=== PATIENT | male | born 1955 | race Hispanic/Latino ===

== ENCOUNTER 2018-04-06 10:11 | Inpatient (IN) | payer OTHER ==
--- NOTE | 2018-04-06 10:45 | RAD REPORT ---
EXAM DESCRIPTION: CT - Head Brain Wo Cont - 04/06/2018 10:38 am CLINICAL HISTORY: MENTAL STATUS CHANGE Drowsiness COMPARISON: HEAD BRAIN W O CONTRAST dated 09/27/2012 TECHNIQUE: All CT scans are performed using dose optimization technique as appropriate and may inclu de automated exposure control or mA/KV adjustment according to patient size. FINDINGS: No intracranial hemorrhage, hydrocephalus or extra-axial fluid collection.No areas of brai n edema or evidence of midline shift. Mild multifocal paranasal sinus thickening is seen. The calvarium is intact. IMPRESSION: No acute intracranial abnormality.
[2018-04-06] MEDS ORDERED: NA CHLORIDE 0.9% 1,000 ML ONE ×4 (11:08→16:16)
[2018-04-06 11:12] LABS: Absolute Lymphocytes (CBC) 0.4 K/uL (0.7-4.9); Absolute Monocytes 0.9 K/uL (0.1-1.3); Absolute Neutrophil 25.4 K/uL (1.8-8.0); Basophils % 0.1 % (0-1.3); Eosinophils % 0.4 % (0-4.4); Hematocrit 33.4 % (39.6-49.0); Lymphocytes % 1.6 % (15.3-44.8); MPV 8.3 fL (7.6-11.3); Monocytes % 3.5 % (3.3-12.3); RBC Red Blood Cell Count 3.71 M/uL (4.33-5.43)
[2018-04-06 11:18] LABS: Protime INR 1.3
--- NOTE | 2018-04-06 11:18 | RAD REPORT ---
EXAM DESCRIPTION: RAD - Chest Single View - 04/06/2018 10:53 am CLINICAL HISTORY: confusion Chest pain. COMPARISON: Chest Pa And Lat (2 Views) dated 07/07/2015; CHEST SINGLE VIEW dated 09/27/2012; CHEST SING LE VIEW dated 09/12/2011; ABDOMEN ACUTE SERIES dated 09/13/2009 FINDINGS: Portable technique limits examination quality. Extensive bilateral pulmonary opacities are noted likely representing multifocal pneumonia. The heart is normal in size. No displaced fractures. IMPRESSION: Extensive multifocal pneumonia likely present.
[2018-04-06 11:40] LABS: Blood Morphology Comment NOT SEEN (NOT SEEN); Platelet Estimate ADEQ
[2018-04-06 11:42] LABS: ALT/SGPT 44 U/L (12-78); AST/SGOT 114 U/L (15-37); Albumin 2.7 g/dL (3.4-5.0); Alkaline Phosphatase 124 U/L (45-117); BUN Blood Urea Nitrogen 81 mg/dL (7-18); Bicarbonate 17 mmol/L (21-32); Bilirubin Direct 0.4 mg/dL (0-0.2); Bilirubin Total 0.7 mg/dL (0.2-1.0); CKMB Creatine Kinase MB 35.2 ng/mL (0.3-3.6); Creatine Phosphokinase 3358 U/L (39-308); Glucose Level 67 mg/dL (74-106); Magnesium 2.8 mg/dL (1.8-2.4); NT PRO-BNP 7609 pg/mL (<125); Protein, Total 7.5 g/dL (6.4-8.2); Sodium Level 132 mmol/L (136-145); Troponin (Emerg Dept Use Only) < 0.02 ng/mL (0.0-0.045)
[2018-04-06 12:08] LABS: Arterial Blood Carboxyhemoglob 0.4 % (0-1.5); Blood Gas Oxyhemoglobin 88.7 % (94-97); Blood O2 Saturation 90.2 % (92-98.5)
--- NOTE | 2018-04-06 12:19 | EDPHYS ---
Physician Documentation [facility] Name: Robby Springer Age: 62 yrs Sex: Male : 1955 Arrival Date: 04/06/2018 Time: 10:[address] Private MD: ED Physician Marlo Srivastava HPI: 04/06 11:04 This 62 yrs old Male presents to ER via EMS with complaints of Altered Mental kb Status. 11:04 The patient presents with disorientation, to place, to time. Onset: The kb symptoms/episode began/occurred at an unknown time. Possible causes: unknown. Current symptoms: In the emergency department the patient's symptoms are unchanged from the initial presentation. Patient's baseline:. Patient's baseline: unknown. Unable to obtain HPI due to altered mental status. It is unknown whether or not the patient has had similar symptoms in the past. EMS reports pt was found outside of an apartment complex this morning. Pt reports he was dropped off by [employer], but PD denies transporting pt. Pt oriented to name, month and day of date only. Believes he is 61 and was born in 1956. Reports he fell a few hours ago and has a headache, no other symptoms or complaints. Pt is cold to touch. . Historical: - Allergies: 10:27 Imuran; em 10:27 Toradol; em - PMHx: 10:27 chron's; Enlarged Heart; GERD; Hypertension; em - Immunization history:: Adult Immunizations unknown. - Social history:: Smoking status: unknown. - Ebola Screening: : No symptoms or risks identified at this time. ROS: 11:11 Constitutional: Negative for fever, chills, and weight loss, Cardiovascular: Negative kb for chest pain, palpitations, and edema, Respiratory: Negative for shortness of breath, cough, wheezing, and pleuritic chest pain, Abdomen/GI: Negative for abdominal pain, nausea, vomiting, diarrhea, and constipation, MS/Extremity: Negative for injury and deformity, Skin: Negative for injury, rash, and discoloration. 11:11 Neuro: Positive for altered mental status, headache. Exam: 11:11 Constitutional: This is a well developed, well nourished patient who is awake, alert, kb and in no acute distress. Head/Face: Normocephalic, atraumatic. Eyes: Pupils equal round and reactive to light, extra-ocular motions intact. Lids and lashes normal. Conjunctiva and sclera are non-icteric and not injected. Cornea within normal limits. Periorbital areas with no swelling, redness, or edema. ENT: Nares patent. No nasal discharge, no septal abnormalities noted. Tympanic membranes are normal and external auditory canals are clear. Oropharynx with no redness, swelling, or masses, exudates, or evidence of obstruction, uvula midline. Mucous membranes moist. Neck: Trachea midline, no thyromegaly or masses palpated, and no cervical lymphadenopathy. Supple, full range of motion without nuchal rigidity, or vertebral point tenderness. No Meningismus. Chest/axilla: Normal chest wall appearance and motion. Nontender with no deformity. No lesions are appreciated. Cardiovascular: Regular rate and rhythm with a normal S1 and S2. No gallops, murmurs, or rubs. Normal PMI, no JVD. No pulse deficits. Abdomen/GI: Soft, non-tender, with normal bowel sounds. No distension or tympany. No guarding or rebound. No evidence of tenderness throughout. Skin: Warm, dry with normal turgor. Normal color with no rashes, no lesions, and no evidence of cellulitis. MS/ Extremity: Pulses equal, no cyanosis. Neurovascular intact. Full, normal range of motion. 11:11 Neuro: Orientation: to person, Not oriented to place, time, situation, Mentation: able to follow commands, Memory: unable to test, Cranial nerves: grossly normal, Cerebellar function: is grossly normal, Motor: is normal, Sensation: no obvious gross deficits, light touch sense is normal, seizure activity, is not displayed by the patient. 11:11 Respiratory: the patient does not display signs of respiratory distress, Respirations: kb normal, Breath sounds: rhonchi, that are mild, are heard in the right middle lobe, right lower lobe, right posterior middle lobe and right posterior lower lobe. Vital Signs: 10:16 BP 99 / 59; Pulse 94; Resp 16; Pulse Ox 97% on R/A; em 10:51 BP 83 / 60; Pulse 114; Resp 20; Temp 87.5(R); em 11:00 Weight 68 kg; em 11:15 BP 81 / 55; Pulse 110; Resp 22; em 11:26 Temp 88.6(C); em 11:30 BP 83 / 55; Pulse 127; Resp 22 S; em 12:01 BP 80 / 47; Pulse 120; Resp 18; Temp 90.3(C); em 12:31 BP 86 / 54; Pulse 133; Resp 19 S; Temp 91.9(C); Pulse Ox 98% on Nebulizer Mask; em 12:42 BP 93 / 64; Pulse 130; Resp 18; Temp 92.2(C); Pulse Ox 98% on 2 lpm NC; Pain 6/10; em 12:52 BP 80 / 51; Pulse 130; Resp 20; Temp 92.6(C); Pulse Ox 98% on 2 lpm NC; em 13:01 BP 76 / 51; Pulse 136; Resp 20; Pulse Ox 97% on 2 lpm NC; em 13:23 BP 66 / 50; Pulse 147; Resp 20; sv 13:45 BP 85 / 64; Pulse 132; Resp 16; Temp 95.2(C); Pulse Ox 97% on 2 lpm NC; ph 14:11 BP 139 / 86; Pulse 137; Resp 16; Pulse Ox 97% on R/A; ph 14:21 BP 59 / 50; Pulse 144; Resp 16; Pulse Ox 96% on 2 lpm NC; ph 14:40 BP 76 / 57; Pulse 145; Resp 22; Temp 95.6(C); Pulse Ox 92% on 2 lpm NC; ph 15:00 BP 87 / 58; Pulse 147; Resp 18; Temp 96.0; Pulse Ox 94% on 4 lpm NC; ph 15:18 BP 96 / 69; Pulse 140; Resp 22; Temp 96.2(C); Pulse Ox 96% on 4 lpm NC; ph 15:31 BP 102 / 63; Pulse 100 MON; Resp 18; Temp 96.3(C); Pulse Ox 95% ; sv 15:45 BP 102 / 63; Pulse 100; Resp 18; Temp 96.3(C); Pulse Ox 95% on 4 lpm NC; ph 16:19 BP 89 / 64; Pulse 104; Resp 22; Temp 96.7(C); Pulse Ox 96% on 4 lpm NC; ph 16:30 BP 84 / 57; Pulse 106; Resp 20; Temp 97.0; Pulse Ox 96% on 4 lpm NC; ph 16:50 BP 84 / 59; Pulse 106; Resp 22; Temp 97.7; Pulse Ox 94% on 4 lpm NC; ph 15:31 Sinus Rhythm sv 10:51 provider notified of VS em NIH Stroke Scale Scores: 10:16 NIHSS Score: 1 em Procedures: 15:32 Cardioversion: (synchronized) for treatment of A fib, with 150 joules X 1. Post gs procedure rhythm is sinus rhythm, the patient tolerated the procedure well. Central Line: the site was prepped with Betadine, in sterile fashion, a triple lumen catheter was inserted, in the right internal jugular vein, in 1 attempts. placement was verified, by CXR, by blood return, the site was dressed with 4X4s, Tegaderm, the patient tolerated the procedure, well. Ultrasound: Type: vascular, performed by the emergency department physician. MDM: 10:14 Patient medically screened. kb 12:15 Data reviewed: vital signs, nurses notes. Data interpreted: Pulse oximetry: on room air kb is 90 %. Interpretation: borderline. Counseling: I had a detailed discussion with the patient and/or guardian regarding: the historical points, exam findings, and any diagnostic results supporting the discharge/admit diagnosis, lab results, radiology results, the need for further work-up and treatment in the hospital. Physician consultation: Wendy Singleton MD was contacted at 12:16, regarding admission, to the ICU, and will see patient in ED, shortly. 04/06 10:16 Order name: Basic Metabolic Panel; Complete Time: 11:51 kb 04/06 10:16 Order name: CBC with Diff; Complete Time: 11:42 kb 04/06 10:16 Order name: LFT's; Complete Time: 11:51 kb 04/06 10:16 Order name: Magnesium; Complete Time: 11:51 kb 04/06 10:16 Order name: NT PRO-BNP; Complete Time: 11:51 kb 04/06 10:16 Order name: PT-INR; Complete Time: 11:21 kb 04/06 10:16 Order name: Troponin (emerg Dept Use Only); Complete Time: 11:51 kb 04/06 10:16 Order name: CPK; Complete Time: 11:51 kb 04/06 10:16 Order name: Ckmb; Complete Time: 11:51 kb 04/06 11:02 Order name: Blood Culture Adult (2) kb 04/06 11:02 Order name: Lactate; Complete Time: 12:11 kb 04/06 11:02 Order name: Procalcitonin; Complete Time: 12:11 kb 04/06 11:17 Order name: Manual Differential; Complete Time: 11:42 EDMS 04/06 11:18 Order name: ABG kb 04/06 11:18 Order name: ABG Arterial Blood Gas; Complete Time: 12:21 EDMS 04/06 12:09 Order name: Urine Microscopic Only; Complete Time: 12:38 dh3 04/06 12:14 Order name: Urine Dipstick--Ancillary (enter results) la1 04/06 13:02 Order name: Urine Drug Screen EDMS 04/06 13:02 Order name: Hepatitis Panel,Acute EDMS 04/06 13:11 Order name: Influenza Screen (A ; Complete Time: 15:51 EDMS 04/06 13:11 Order name: Group A Streptococcus Rapid Sc; Complete Time: 15:51 EDMS 04/06 13:13 Order name: Miscellaneous Micro Reference EDMS 04/06 14:07 Order name: MATTHEW IFA Screen w/Reflex EDMS 04/06 14:07 Order name: Anti-Double Strand DNA Antibod EDMS 04/06 14:07 Order name: Scleroderma Antibody (Scl-70) EDMS 04/06 14:07 Order name: Cardiolipin Antibodies G,M EDMS 04/06 14:07 Order name: Cardiolipin Antibodies A,G,M EDMS 04/06 14:07 Order name: C-ANCA Anti-Proteinase 3 EDMS 04/06 14:07 Order name: Complement C3 EDMS 04/06 14:07 Order name: Complement C4 EDMS 04/06 10:16 Order name: XRAY Chest (1 view); Complete Time: 11:21 kb 04/06 10:16 Order name: CT Head Brain wo Cont; Complete Time: 10:47 kb 04/06 13:02 Order name: Thorax Wo Con EDMS 04/06 13:02 Order name: Echo with Doppler EDMS 04/06 14:07 Order name: Glomerular Basement Membrane EDMS 04/06 14:07 Order name: Hepatitis B Surface Antibody EDMS 04/06 14:07 Order name: Hepatitis B Surface Ab,Quant EDMS 04/06 14:07 Order name: Hep B Surface AG w/ Confirm EDMS 04/06 14:07 Order name: Hepatitis B Core Ab, Total EDMS 04/06 14:07 Order name: Hepatitis C RNA, Quant (PCR) EDMS 04/06 14:07 Order name: HIV (1 EDMS 04/06 14:07 Order name: P-ANCA Anti-Myeloperoxidase Ab EDMS 04/06 14:07 Order name: Ur Protein EDMS 04/06 14:07 Order name: Rheumatoid Factor EDMS 04/06 14:07 Order name: Protein Electo w/M Dangelo Serum EDMS 04/06 14:07 Order name: Transferrin Sat/Iron Binding EDMS 04/06 14:07 Order name: Thyroid Stimulating Hormone EDMS 04/06 14:07 Order name: Uric Acid EDMS 04/06 14:07 Order name: Renal Panel EDMS 04/06 14:07 Order name: Renal Panel EDMS 04/06 14:07 Order name: Renal Panel EDMS 04/06 14:07 Order name: Renal Panel EDMS 04/06 14:07 Order name: Renal Panel EDMS 04/06 14:07 Order name: Renal Panel EDMS 04/06 14:07 Order name: Renal Ultrasound-Complete EDMS 04/06 14:29 Order name: Abdomen EDMS 04/06 14:57 Order name: Chest Single View XRAY; Complete Time: 15:33 kb 04/06 15:59 Order name: CT; Complete Time: 16:02 EDMS 04/06 16:50 Order name: Glucose, Ancillary Testing; Complete Time: 16:52 EDMS 04/06 10:16 Order name: EKG; Complete Time: 10:17 kb 04/06 10:16 Order name: Cardiac monitoring; Complete Time: 11:49 kb 04/06 10:16 Order name: EKG - Nurse/Tech; Complete Time: 11:49 kb 04/06 10:16 Order name: IV Saline Lock; Complete Time: 11:49 kb 04/06 10:16 Order name: Labs collected and sent; Complete Time: 11:49 kb 04/06 10:16 Order name: O2 Per Protocol; Complete Time: 11:49 kb 04/06 10:16 Order name: O2 Sat Monitoring; Complete Time: 11:49 kb 04/06 11:02 Order name: Misc. Order: anushka abraham; Complete Time: 11:49 kb 04/06 11:02 Order name: Urine Dipstick-Ancillary (obtain specimen); Complete Time: 12:08 kb 04/06 11:17 Order name: Jones: continuous temperature monitoring; Complete Time: 11:49 kb 04/06 13:02 Order name: CONS Physician Consult EDKY 04/06 13:02 Order name: CONS Physician Consult EDMS 04/06 13:02 Order name: CONS Physician Consult EDMS 04/06 13:08 Order name: Central Line Kit; Complete Time: 14:01 kb 04/06 15:30 Order name: Misc. Order: cvc good to use; Complete Time: 16:18 gs Administered Medications: 10:55 Drug: NS 0.9% 1000 ml Route: IV; Rate: 1000 ml; Site: left antecubital; em 12:30 Follow up: IV Status: Completed infusion; IV Intake: 1000ml em 10:55 Drug: NS 0.9% (30 ml/kg) 30 ml/kg Route: IV; Rate: bolus; Site: left antecubital; em 12:30 Follow up: IV Status: Completed infusion; IV Intake: 1000ml em 11:40 Drug: Xopenex (3) 1.25 mg Route: Inhalation; em 12:31 Follow up: Response: No adverse reaction em 11:40 Drug: AtroVENT Aerosol 0.5 mg Route: Inhalation; em 12:31 Follow up: Response: No adverse reaction em 11:50 Drug: Zosyn 3.375 grams Route: IVPB; Infused Over: 60 mins; Site: left antecubital; em 12:55 Follow up: Response: No adverse reaction; IV Status: Completed infusion; IV Intake: em 100ml 11:53 Drug: vancoMYCIN 1 grams Route: IVPB; Infused Over: 2 hrs; Site: right antecubital; em 15:03 Follow up: Response: No adverse reaction; IV Status: Completed infusion; IV Intake: sv 250ml 12:16 Drug: D50W 25 ml Route: IVP; Site: right antecubital; ss 12:29 Follow up: Response: No adverse reaction em 12:27 Drug: NS 0.9% 1000 ml Route: IV; Rate: 150 ml/hr; Site: left antecubital; em 13:57 Follow up: IV Status: Infusion continued upon admission ss 14:24 Drug: Levophed (4 mg/250 mL D5W 4 mcg/min {Note: 2 mcg/kg/min.} Route: IV; Rate: ph calculated rate; Site: left antecubital; 15:16 Follow up: Rate change 18 mcg/min ph 15:25 Drug: fentaNYL (PF) 50 mcg Route: IVP; Site: right antecubital; ph 17:06 Follow up: Response: No adverse reaction ph 15:25 Drug: Versed 1 mg Route: IVP; Site: right antecubital; ph 17:06 Follow up: Response: No adverse reaction ph 15:31 Drug: NS 0.9% 1000 ml Route: IV; Rate: 1 bolus; Site: right subclavian; sv 16:30 Follow up: Response: No adverse reaction; IV Status: Completed infusion ph 16:18 Drug: HydroCORTISONE 100 mg Route: IVP; Site: right antecubital; ph 17:11 Follow up: Response: No adverse reaction sv Point of Care Testing: Blood Glucose: 16:50 Blood Glucose: 101 mg/dL; ph Ranges: Critical Glucose Levels:Adult <50 mg/dl or >400 mg/dl <40 mg/dl or >180 mg/dl Disposition: 15:32 Critical Care:. Co-signature as Attending Physician, Franchesca HERNANDEZ I agree with gs the assessment and plan of care. PA/TECH WRITER's history reviewed, patient interviewed, and examined. Disposition: 04/06/18 12:18 Hospitalization ordered by Wendy Singleton for Inpatient Admission. Preliminary diagnosis are Pneumonia, unspecified organism, Sepsis, unspecified organism, Acute kidney failure, Rhabdomyolysis, Hypothermia, Acidosis. - Bed requested for Intensive Care Unit. - Status is Inpatient Admission. sv - Condition is Stable. - Problem is new. - Symptoms are unchanged. UTI on Admission? No Critical care time excluding procedures: 15:32 Critical care time: Bedside Care: 10 minutes, Consultation: 10 minutes, Family gs Intervention: 10 minutes. Total time: 30 minutes NIH Stroke Scale - NIH Stroke Score Date: 04/06/2018 Time: 10:16 Total Score = 1 1a. Level of Consciousness (LOC) - 0(Alert) 1b. Level of Consciousness (LOC) (Year \T\ Age) - 0(Both) 1c. LOC Commands (Open \T\ Closes Eyes/Dairy Bacteriologist) - 0(Both) 2. Best Gaze (Lateral Gaze Paresis) - 0(Normal) 3. Visual Field Loss - 0(No visual loss) 4. Facial Palsy - 0(Normal) 5a. Left Arm: Motor (10-second hold) - 0(No drift) 5b. Right Arm: Motor (10-second hold) - 0(No drift) 6a. Left Leg: Motor (5-second hold - always test supine) - 0(No drift) 6b. Right Leg: Motor (5-second hold - always test supine) - 0(No drift) 7. Limb Ataxia (finger/nose \T\ heel/wang - test with eyes open) - 0(Absent) 8. Sensory Loss (pinprick arms/legs/face) - 0(Normal) 9. Best Language: Aphasia (description/naming/reading) - 1(Mild to moderate aphasia) 10. Dysarthria (speech clarity - read or repeat words) - 0(Normal) 11. Extinction and Inattention (visual/tactile/auditory/spatial/personal) - 0(No abnormality) Initials: em Signatures: Dispatcher [employer] EDFranchesca Emerson, PRINTED CIRCUIT BOARD REWORKER-C PRINTED CIRCUIT BOARD REWORKER-Ckb Jennifer Rosado Stephanie, BRITT DE LA TORRE sv Jas Boggs, REGISTERED DIETITIAN REGISTERED DIETITIAN em Cathy Hartman RN RN ss Hall, Patricia, RN RN Marlo Srivastava MD MD gs Corrections: (The following items were deleted from the chart) 11:32 11:11 Constitutional: This is a well developed, well nourished patient who is kb awake, alert, and in no acute distress. Head/Face: Normocephalic, atraumatic. Eyes: Pupils equal round and reactive to light, extra-ocular motions intact. Lids and lashes normal. Conjunctiva and sclera are non-icteric and not injected. Cornea within normal limits. Periorbital areas with no swelling, redness, or edema. ENT: Nares patent. No nasal discharge, no septal abnormalities noted. Tympanic membranes are normal and external auditory canals are clear. Oropharynx with no redness, swelling, or masses, exudates, or evidence of obstruction, uvula midline. Mucous membranes moist. Neck: Trachea midline, no thyromegaly or masses palpated, and no cervical lymphadenopathy. Supple, full range of motion without nuchal rigidity, or vertebral point tenderness. No Meningismus. Chest/axilla: Normal chest wall appearance and motion. Nontender with no deformity. No lesions are appreciated. Cardiovascular: Regular rate and rhythm with a normal S1 and S2. No gallops, murmurs, or rubs. Normal PMI, no JVD. No pulse deficits. Respiratory: Lungs have equal breath sounds bilaterally, clear to auscultation and percussion. No rales, rhonchi or wheezes noted. No increased work of breathing, no retractions or nasal flaring. Abdomen/GI: Soft, non-tender, with normal bowel sounds. No distension or tympany. No guarding or rebound. No evidence of tenderness throughout. Skin: Warm, dry with normal turgor. Normal color with no rashes, no lesions, and no evidence of cellulitis. MS/ Extremity: Pulses equal, no cyanosis. Neurovascular intact. Full, normal range of motion. kb 14:07 12:18 Hospitalization Ordered by Wendy Singleton MD for Inpatient Admission. bd Preliminary diagnosis is Pneumonia, unspecified organism; Sepsis, unspecified organism; Acute kidney failure; Rhabdomyolysis; Hypothermia; Acidosis. Bed requested for Intensive Care Unit. Status is Inpatient Admission. Condition is Stable. Problem is new. Symptoms are unchanged. UTI on Admission? No. kb 14:17 13:02 Renal Ultrasound-Complete ordered. [facility] 17:10 14:07 04/06/2018 12:18 Hospitalization Ordered by Wendy Singleton MD for Inpatient Admission. Preliminary diagnosis is Pneumonia, unspecified organism; Sepsis, unspecified organism; Acute kidney failure; Rhabdomyolysis; Hypothermia; Acidosis. Bed requested for Intensive Care Unit. Status is Inpatient Admission. Condition is Stable. Problem is new. Symptoms are unchanged. UTI on Admission? No. bd
--- NOTE | 2018-04-06 12:19 | ER ---
Nurse's Notes [facility] Name: Robby Springer Age: 62 yrs Sex: Male : 1955 Arrival Date: 04/06/2018 Time: 10:[address] Private MD: Diagnosis: Pneumonia, unspecified organism;Sepsis, unspecified organism;Acute kidney failure;Rhabdomyolysis;Hypothermia;Acidosis Presentation: 04/06 10:16 Presenting complaint: EMS states: called out for a pt who was confused and cold in some em apartments in [place], [place] [employer] had a name and birthday of pt,A \T\ Ox 2, pt does not know the year or who is president, pt reports living in [place], reports pain in left side of head, described as throbbing, states he fell about 2 hours ago, unknown last normal. Transition of care: patient was not received from another setting of care. Onset of symptoms was April 06, 2018. Risk Assessment: Do you want to hurt yourself or someone else? Patient reports no desire to harm self or others. Initial Sepsis Screen: Does the patient meet any 2 criteria? No. Patient's initial sepsis screen is negative. Does the patient have a suspected source of infection? No. Patient's initial sepsis screen is negative. Care prior to arrival: None. 10:16 Method Of Arrival: EMS: [facility] em 10:16 Acuity: MELIA 2 ss Triage Assessment: 10:16 General: Appears comfortable, Behavior is cooperative. Pain: Complains of pain in left em shinto. Neuro: Level of Consciousness is awake, alert, obeys commands, Oriented to person, place, Admissions Rn are equal bilaterally Moves all extremities. Speech with expressive aphasia noted, Facial symmetry appears normal, Pupils are PERRLA. Respiratory: Airway is patent Respiratory effort is even, unlabored, Respiratory pattern is regular, symmetrical. Historical: - Allergies: 10:27 Imuran; em 10:27 Toradol; em - PMHx: 10:27 chron's; Enlarged Heart; GERD; Hypertension; em - Immunization history:: Adult Immunizations unknown. - Social history:: Smoking status: unknown. - Ebola Screening: : No symptoms or risks identified at this time. Screenin:16 Abuse screen: no apparent signs noted. Nutritional screening: No deficits noted. em Tuberculosis screening: No symptoms or risk factors identified. Fall Risk None identified. Assessment: 10:15 General: Appears uncomfortable, Behavior is calm, cooperative, quiet, Denies feeling ss ill, fatigue. Neuro: Level of Consciousness is awake, alert, obeys commands, Oriented to person, place, Admissions Rn are equal bilaterally Facial symmetry appears normal, Pupils are PERRLA. Neuro:. Respiratory: Respiratory effort is even, unlabored, Breath sounds are diminished in left posterior lower lobe, right posterior middle lobe and right posterior lower lobe Denies pain with respiration, pain with cough, pain with movement. EENT: Nares are clear Oral mucosa is dry. Derm: Skin is dry, Skin temperature is cold. 10:16 General: Appears uncomfortable, Behavior is cooperative, quiet. Pain: Complains of pain em in left shinto. Neuro: Level of Consciousness is awake, alert, obeys commands, Oriented to person, place. Cardiovascular: Rhythm is atrial fibrillation. Respiratory: Airway is patent Respiratory effort is even, unlabored, Respiratory pattern is regular, symmetrical. GI: Abdomen is flat. Derm: Skin is dry, Skin is pale, Skin temperature is cold. Musculoskeletal: Range of motion: intact in all extremities. 10:51 Reassessment: Patient appears in no apparent distress at this time. rectal temp. 87.5 em rectal, provider notified, new orders received, placed on Henna Hugger, warm blankets placed on top. 10:55 Reassessment: Patient appears in no apparent distress at this time. placed IV fluids on em warmer placed in LAC. 11:30 Reassessment: Patient appears in no apparent distress at this time. Patient and/or em family updated on plan of care and expected duration. Pain level reassessed. pt A\T\O x 4 Patient states feeling better. Patient states symptoms have improved. 12:20 Reassessment: Patient appears in no apparent distress at this time. Patient and/or em family updated on plan of care and expected duration. Pain level reassessed. Patient is alert, oriented x 3, equal unlabored respirations, skin warm/dry/pink. reports feeling better, BP 75/60, placed in Trendelenburg, BP 93/64 HR 120-135's, charge nurse at bedside. 12:43 Reassessment: Patient appears in no apparent distress at this time. provider at bedside.em 13:03 Reassessment: Patient appears in no apparent distress at this time. Patient and/or em family updated on plan of care and expected duration. Pain level reassessed. Patient is alert, oriented x 3, equal unlabored respirations, skin warm/dry/pink. charge nurse notified of pt condition, pt moved to ER3, report given to BRITT Buckner Patient states symptoms have improved. 13:45 Reassessment: Patient appears in no apparent distress at this time. Patient and/or ph family updated on plan of care and expected duration. Pain level reassessed. Patient is alert, oriented x 3, equal unlabored respirations, skin warm/dry/pink. Dr Miranda at bedside to speak w/ pt, BP noted to have improved to 139/86, will continue to monitor. Cardiovascular: Denies chest pain, palpitations, Capillary refill is sluggish Rhythm is atrial fibrillation with rapid ventricular response. Respiratory: Airway is patent Respiratory effort is even, unlabored, Respiratory pattern is regular, symmetrical. : Jones in place to gravity drainage Urine is cloudy. Musculoskeletal: Circulation, motion, and sensation intact. Range of motion: intact in all extremities. 14:17 Reassessment: Patient appears in no apparent distress at this time. Patient is alert, ph oriented x 3, equal unlabored respirations, skin warm/dry/pink. Assisted pt onto bedpan to have bowel movement, stools loose w/ no blood noted. 15:00 Reassessment: Patient appears in no apparent distress at this time. Patient and/or ph family updated on plan of care and expected duration. Pain level reassessed. Patient is alert, oriented x 3, equal unlabored respirations, skin warm/dry/pink. Dr Srivastava at bedside for central line plcmnt, pt tolerated well. 16:00 Reassessment: Patient appears in no apparent distress at this time. Patient and/or ph family updated on plan of care and expected duration. Pain level reassessed. Patient is alert, oriented x 3, equal unlabored respirations, skin warm/dry/pink. Pt taken to CT accompanied by RN. 17:05 Reassessment: Patient appears in no apparent distress at this time. Patient and/or ph family updated on plan of care and expected duration. Pain level reassessed. Patient is alert, oriented x 3, equal unlabored respirations, skin warm/dry/pink. Report called to BRITT Berger, preparing pt to be taken to ICU Patient states feeling better. Vital Signs: 10:16 BP 99 / 59; Pulse 94; Resp 16; Pulse Ox 97% on R/A; em 10:51 BP 83 / 60; Pulse 114; Resp 20; Temp 87.5(R); em 11:00 Weight 68 kg; em 11:15 BP 81 / 55; Pulse 110; Resp 22; em 11:26 Temp 88.6(C); em 11:30 BP 83 / 55; Pulse 127; Resp 22 S; em 12:01 BP 80 / 47; Pulse 120; Resp 18; Temp 90.3(C); em 12:31 BP 86 / 54; Pulse 133; Resp 19 S; Temp 91.9(C); Pulse Ox 98% on Nebulizer Mask; em 12:42 BP 93 / 64; Pulse 130; Resp 18; Temp 92.2(C); Pulse Ox 98% on 2 lpm NC; Pain 6/10; em 12:52 BP 80 / 51; Pulse 130; Resp 20; Temp 92.6(C); Pulse Ox 98% on 2 lpm NC; em 13:01 BP 76 / 51; Pulse 136; Resp 20; Pulse Ox 97% on 2 lpm NC; em 13:23 BP 66 / 50; Pulse 147; Resp 20; sv 13:45 BP 85 / 64; Pulse 132; Resp 16; Temp 95.2(C); Pulse Ox 97% on 2 lpm NC; ph 14:11 BP 139 / 86; Pulse 137; Resp 16; Pulse Ox 97% on R/A; ph 14:21 BP 59 / 50; Pulse 144; Resp 16; Pulse Ox 96% on 2 lpm NC; ph 14:40 BP 76 / 57; Pulse 145; Resp 22; Temp 95.6(C); Pulse Ox 92% on 2 lpm NC; ph 15:00 BP 87 / 58; Pulse 147; Resp 18; Temp 96.0; Pulse Ox 94% on 4 lpm NC; ph 15:18 BP 96 / 69; Pulse 140; Resp 22; Temp 96.2(C); Pulse Ox 96% on 4 lpm NC; ph 15:31 BP 102 / 63; Pulse 100 MON; Resp 18; Temp 96.3(C); Pulse Ox 95% ; sv 15:45 BP 102 / 63; Pulse 100; Resp 18; Temp 96.3(C); Pulse Ox 95% on 4 lpm NC; ph 16:19 BP 89 / 64; Pulse 104; Resp 22; Temp 96.7(C); Pulse Ox 96% on 4 lpm NC; ph 16:30 BP 84 / 57; Pulse 106; Resp 20; Temp 97.0; Pulse Ox 96% on 4 lpm NC; ph 16:50 BP 84 / 59; Pulse 106; Resp 22; Temp 97.7; Pulse Ox 94% on 4 lpm NC; ph 15:31 Sinus Rhythm sv 10:51 provider notified of VS em Vitals: 15:00 Cardiac Rhythm Assessment Atrial fibrillation W/rapid ventricular response. ph 16:50 Cardiac Rhythm Assessment Sinus tach. ph NIH Stroke Scale Scores: 10:16 NIHSS Score: 1 em ED Course: 10:14 Patient arrived in ED. kb 10:14 Franc[facility]sca John [facility]C [facility]. kb 10:14 Marlo Srivastava MD is Attending Physician. kb 10:14 Cathy Hartman RN is Primary Nurse. ss 10:16 Arm band placed on. em 10:16 Patient has correct armband on for positive identification. Bed in low position. Call em light in reach. Placed in gown. Side rails up X2. metal riveting machine operator on. Pulse ox on. NIBP on. Warm blanket given. 10:35 CT completed. Patient tolerated procedure well. Patient moved back from CT. bq 10:38 CT Head Brain wo Cont In Process Unspecified. EDMS 10:40 Triage completed. ss 10:53 XRAY Chest (1 view) In Process Unspecified. EDMS 11:00 Initial lab(s) drawn, by me, sent to lab. Inserted saline lock: 20 gauge in left em antecubital area, using aseptic technique. Blood collected. 11:20 EKG done, by ED staff, reviewed by Franchesca HERNANDEZ. dh3 11:25 Jones cath inserted, using sterile technique, 16 Fr., by me, balloon inflated, to em gravity drainage, urine specimen collected. 11:45 Inserted saline lock: 20 gauge in right antecubital area, using aseptic technique. em Blood collected. 12:05 Urine collected: Jones catheter specimen, rosetta colored, Amount Returned: 100mL. dh3 12:07 Notified Nurse Practitioner and/or Physician Sap Sd Analyst of a critical lab result(s), la1 lactate 2.2. 12:17 Wendy Singleton MD is Hospitalizing Provider. kb 15:00 Note: pt is unstable for ct. Dr. Srivastava is placing a line. PJ will call when stable. bq 15:00 Assisted provider with central line placement. Set up central line tray. Triple lumen ph line placed in right internal jugular. Line placed by Marlo Srivastava MD Placement verified by CXR, blood return, Dressed with Tegaderm, Blood was collected. Patient tolerated well. 15:18 Chest Single View XRAY In Process Unspecified. EDMS 15:30 Assist provider with cardioversion (synchronized) with pads, for treatment of A fib sv with 150 joules Set up for procedure. Performed by Marlo Srivastava MD Monitored with manufacturing helper, pulse ox, Post procedure rhythm is sinus rhythm. 16:27 Patient admitted, IV remains in place. ph 16:30 Primary Nurse role handed off by Cathy Hartman, BRITT ph 16:30 Sita Nolen, RN is Primary Nurse. ph Administered Medications: 10:55 Drug: NS 0.9% 1000 ml Route: IV; Rate: 1000 ml; Site: left antecubital; em 12:30 Follow up: IV Status: Completed infusion; IV Intake: 1000ml em 10:55 Drug: NS 0.9% (30 ml/kg) 30 ml/kg Route: IV; Rate: bolus; Site: left antecubital; em 12:30 Follow up: IV Status: Completed infusion; IV Intake: 1000ml em 11:40 Drug: Xopenex (3) 1.25 mg Route: Inhalation; em 12:31 Follow up: Response: No adverse reaction em 11:40 Drug: AtroVENT Aerosol 0.5 mg Route: Inhalation; em 12:31 Follow up: Response: No adverse reaction em 11:50 Drug: Zosyn 3.375 grams Route: IVPB; Infused Over: 60 mins; Site: left antecubital; em 12:55 Follow up: Response: No adverse reaction; IV Status: Completed infusion; IV Intake: em 100ml 11:53 Drug: vancoMYCIN 1 grams Route: IVPB; Infused Over: 2 hrs; Site: right antecubital; em 15:03 Follow up: Response: No adverse reaction; IV Status: Completed infusion; IV Intake: sv 250ml 12:16 Drug: D50W 25 ml Route: IVP; Site: right antecubital; ss 12:29 Follow up: Response: No adverse reaction em 12:27 Drug: NS 0.9% 1000 ml Route: IV; Rate: 150 ml/hr; Site: left antecubital; em 13:57 Follow up: IV Status: Infusion continued upon admission ss 14:24 Drug: Levophed (4 mg/250 mL D5W 4 mcg/min {Note: 2 mcg/kg/min.} Route: IV; Rate: ph calculated rate; Site: left antecubital; 15:16 Follow up: Rate change 18 mcg/min ph 15:25 Drug: fentaNYL (PF) 50 mcg Route: IVP; Site: right antecubital; ph 17:06 Follow up: Response: No adverse reaction ph 15:25 Drug: Versed 1 mg Route: IVP; Site: right antecubital; ph 17:06 Follow up: Response: No adverse reaction ph 15:31 Drug: NS 0.9% 1000 ml Route: IV; Rate: 1 bolus; Site: right subclavian; sv 16:30 Follow up: Response: No adverse reaction; IV Status: Completed infusion ph 16:18 Drug: HydroCORTISONE 100 mg Route: IVP; Site: right antecubital; ph 17:11 Follow up: Response: No adverse reaction sv Point of Care Testing: Blood Glucose: 16:50 Blood Glucose: 101 mg/dL; ph Ranges: Intake: 12:30 IV: 1000ml; Total: 1000ml. em 12:30 IV: 1000ml; Total: 2000ml. em 12:55 IV: 100ml; Total: 2100ml. em 15:03 IV: 250ml; Total: 2350ml. sv Outcome: 12:18 Decision to Hospitalize by Provider. kb 17:10 Patient left the ED. sv 17:10 Admitted to ICU accompanied by nurse, accompanied by tech, via stretcher, room 6, with ph oxygen, on monitor, with chart, Report called to BRITT Berger 17:10 critical NIH Stroke Scale - NIH Stroke Score Date: 04/06/2018 Time: 10:16 Total Score = 1 1a. Level of Consciousness (LOC) - 0(Alert) 1b. Level of Consciousness (LOC) (Year \T\ Age) - 0(Both) 1c. LOC Commands (Open \T\ Closes Eyes/Mural Artist) - 0(Both) 2. Best Gaze (Lateral Gaze Paresis) - 0(Normal) 3. Visual Field Loss - 0(No visual loss) 4. Facial Palsy - 0(Normal) 5a. Left Arm: Motor (10-second hold) - 0(No drift) 5b. Right Arm: Motor (10-second hold) - 0(No drift) 6a. Left Leg: Motor (5-second hold - always test supine) - 0(No drift) 6b. Right Leg: Motor (5-second hold - always test supine) - 0(No drift) 7. Limb Ataxia (finger/nose \T\ heel/wang - test with eyes open) - 0(Absent) 8. Sensory Loss (pinprick arms/legs/face) - 0(Normal) 9. Best Language: Aphasia (description/naming/reading) - 1(Mild to moderate aphasia) 10. Dysarthria (speech clarity - read or repeat words) - 0(Normal) 11. Extinction and Inattention (visual/tactile/auditory/spatial/personal) - 0(No abnormality) Initials: em Signatures: Dispatcher [employer] Franchesca Yoder, GLASSIE-C GLASSIE-CkLiza Cook RN RN Ailyn Taylor Jas Bogsg LVN LVN Cathy Hartman RN RN Fan Mercedes RN RN la1 Sita Nolen RN RN Sanaz Ceja [facility] Corrections: (The following items were deleted from the chart) 11:56 10:51 Temp 87.5F Rectal; em em 12:08 10:16 Acuity: MELIA 3 [place] 13:23 13:03 Reassessment: Patient appears in no apparent distress at this time. em Patient and/or family updated on plan of care and expected duration. Pain level reassessed. Patient is alert, oriented x 3, equal unlabored respirations, skin warm/dry/pink. Patient states symptoms have improved. em 15:32 10:15 Jas Boggs LVN is Primary Nurse. em 15:32 15:32 Cathy Hartman RN is Primary Nurse. ss ss
[2018-04-06] MEDS ORDERED: D50W 25 GM/50 ML SYRINGE IV ONE (12:20)
[2018-04-06 12:36] LABS: Urine Amorphous Sediment 3+ /HPF (NONE SEEN); Urine Bacteria <20 /HPF (NONE SEEN); Urine Culture Reflex Order NOT NEEDED; Urine RBC <5 /HPF (NONE SEEN)
[2018-04-06] MEDS ORDERED: NA CHLORIDE 0.9% 1,000 ML IV SCH (13:01)
[2018-04-06] MEDS ORDERED: PIPER/TAZO/NS 3.375gm 3.375 GM/100 ML BAG IVPB SCH (13:30)
[2018-04-06] MEDS ORDERED: NOREPINEPHRINE 4mg/D5W 250mL 4 MG/250 ML BAG IV ONE ×2 (13:42→16:15)
[2018-04-06] MEDS ORDERED: Levofloxacin 750mg IV 750 MG/150 ML BAG IV SCH (14:00)
[2018-04-06] MEDS ORDERED: VANCOMYCIN/NS 1 gm 1 GM/250 ML BAG IV SCH ×2 (14:00)
[2018-04-06] MEDS: METHYLPREDNISOLONE 40 MG INJ IV SCH (15:00)
[2018-04-06] MEDS: NACHLORIDE 0.45% 1,000 ML with NA BICARB 8.4% 75 MEQ IV SCH ×2 (15:15)
[2018-04-06] MEDS ORDERED: MIDAZOLAM HCL 2 MG/2 ML INJ ONE (15:31)
[2018-04-06] MEDS ORDERED: FENTANYL CITR 100 MCG/2 ML ONE (15:31)
[2018-04-06] MEDS ORDERED: HYDROCORTISONE SUC 100 MG INJ ONE (15:32)
--- NOTE | 2018-04-06 15:33 | RAD REPORT ---
EXAM DESCRIPTION: RAD - Chest Single View - 04/06/2018 3:19 pm CLINICAL HISTORY: central line placement Chest pain. COMPARISON: Chest Single View dated 04/06/2018; Chest Pa And Lat (2 Views) dated 07/07/2015; CHEST SIN GLE VIEW dated 09/27/2012; CHEST SINGLE VIEW dated 09/12/2011 FINDINGS: Portable technique limits examination quality. Right-sided venous catheter is in place with tip in the SVC. No pneumothorax.
--- NOTE | 2018-04-06 15:59 | RAD REPORT ---
EXAM DESCRIPTION: CT - CT CHEST,ABD,PELVIS W/O - 04/06/2018 3:50 pm CLINICAL HISTORY: Chest and abdomen pain. PNA COMPARISON: Chest Single View dated 04/06/2018; Chest Single View dated 04/06/2018 TECHNIQUE: A limited noncontrast study was performed. All CT scans are performed using dose optimization technique as appropriate and may include automated exposure control or mA/KV adjustment according to patient size. FINDINGS: Extensive areas of airspace consolidation are present bilaterally with air bronchograms, m ore severe on the right, compatible with pneumonia.No pleural or pericardial effusion.Mildly prominen t mediastinal adenopathy is present, largest in the sub- carinal region measuring 19 mm, likely repre senting reactive adenopathy.A right-sided venous catheter is present terminating in the SVC. The liver, spleen, pancreas, adrenal glands and kidneys are within normal limits. Urinary bladder is decompressed by Jones catheter. Moderate stool is present in the colon. No bowel obstruction, free air, free fluid or abscess. Normal appendix. No pathologic lymphadenopath y in the abdomen or pelvis. Mild to moderate lower lumbar degenerative changes. IMPRESSION: Extensive multifocal pneumonia pattern is present, greater on the right. No acute intra-abdominal or intrapelvic finding.
--- NOTE | 2018-04-06 16:26 | EKG ---
Test Date: 2018-04-06 Test Time: 11:16:45 Cna Gna: CARA MEASUREMENT RESULTS: Intervals: Rate: 126 MD: QRSD: 108 QT: 314 QTc: 454 [place]: P: MD: QRS: 47 T: 62 INTERPRETIVE STATEMENTS: Atrial fibrillation with rapid ventricular response Septal infarct, age undetermined Abnormal ECG Compared to ECG 12/05/2014 11:42:57 Sinus rhythm no longer present Left ventricular hypertrophy no longer present Myocardial infarct finding still present Electronically Signed On 04-06-18 16:25:34 [employer] by Bart Gutierrez
[2018-04-06] MEDS: INSULIN -REGULAR HUMAN 50 UNIT/0.5 ML ML SQ SCH ×2 (16:52→21:00)
[2018-04-06] MEDS ORDERED: ACETAMINOPHEN 500 MG TAB PO PRN (16:52)
[2018-04-06] MEDS ORDERED: NOREPINEPHRINE 4 MG in D5W 250 ML IV PRN (17:19)
[2018-04-06] MEDS ORDERED: VASOPRESSIN 80 UNIT in NA CHLORIDE 0.9% 250 ML IV PRN (17:19)
[2018-04-06 17:45] LABS: Urine Blood 2+ (NEG); Urine Glucose NEGATIVE (NEG); Urine Protein 2+ (NEG); Urine Specific Gravity 1.025 (1.005-1.030)
--- NOTE | 2018-04-06 17:47 | P.HP ---
Certification for Inpatient Patient admitted to: Inpatient With expected LOS: >2 Midnights Patient will require the following post-hospital care: None Practitioner: I am a practitioner with admitting privileges, knowledge of patient current condition, hospital course, and medical plan of care. Services: Services provided to patient in accordance with Admission requirements found in Title 42 Section 412.3 of the Code of Federal Regulations Patient History Date of Service: 04/06/18 Primary Care Provider: Dr. PINEDA Reason for admission: Hypothermia mental status History of Present Illness: This is a 62-year-old male with significant past medical history of COPD, hypertension, Crohn's disease and tobacco smoking who presented to the ED with altered mental status and hypothermia. The patient was found to have altered mental status and was brought to the hospital by EMS. EMS stated that patient was found wandering around and stated that he was dropped off to the hospital by Bryant SMITH. Upon questioning Bryant SMITH he was not ever picked up by the police department and has been wandering around ever since. Patient had a questionable fall at night. Most of the history was collected by the ER physician from EMS. Initially when patient presented to the ER he was found to have hypothermia with temperature 87 along with atrial fibrillation with RVR. Patient was referred over to the hospital for admission for sepsis and further workup. When I saw the patient in the ER patient remained altered was not able to answer any of my questions was oriented to name and place however was not oriented to time. Unable to provide any history. However after 2 hr of patient in the ER patient did become more alert and oriented and was able to tell me a complete history. Patient stated that for past 4-5 days he has been having some cough and congestion and has been noticing some subjective fevers at the house. 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 His friend has also been sick for quite some days as well. Patient stated that he also has diarrhea for past couple of days and has gotten progressively worse. Patient stated that last week he had a fall at the house however was really well after that. Patient has no other complaints aside from having cough and diarrhea that had gotten progressively worse. Patient states that he does have COPD however does not use his inhaler regularly. Does smoke about 1/2 pack a day. Has Crohn's disease which is fairly controlled on medication and has been taking steroids for a long time. In the ER patient had extensive lab work and imaging done. Lab work was consistent with septic shock with lactic acid of 2.5 and pro calcitonin of 60 along with elevated CK and CK MB. X-ray was consistent with bilateral pneumonia. Patient then was referred over to admission for sepsis secondary to bilateral pneumonia and rhabdomyolysis and metabolic acidosis. Patient also had chest CT done which was again consistent with extensive bilateral multilobar pneumonia. Patient was seen and examined in the ER and was admitted to the ICU for further care. Allergies ketorolac tromethamine [From Toradol] Allergy (Intermediate, Verified 05/17/12 12:58) Itching azathioprine [From Imuran] Allergy (Unverified 09/13/14 13:40) Vomiting azathioprine sodium [From Imuran] Allergy (Unverified 09/13/14 13:40) Vomiting ketorolac Allergy (Unverified 09/13/14 13:40) Vomiting - Past Medical/Surgical History Has patient received pneumonia vaccine in the past: No Diabetic: No -: Crohn's disease -: COPD -: Hypertension Past Surgical History: Reviewed- Non-Contributory - Family History Family History: Reviewed- Non-Contributory - Social History Smoking Status: Current every day smoker Counseled patient to stop smoking for: more than 10 minutes Smoking therapy provided: Yes Patient receptive to therapy: Yes Alcohol use: Yes CD- Drugs: No Caffeine use: No Place of Residence: Home Review of Systems 10-point ROS is otherwise unremarkable Physical Examination - Vital Signs Temperature: 88.6 F Blood Pressure: 81/55 Pulse: 110 Respirations: 22 - Physical Exam General: Alert, Oriented x2, Cachectic, Moderate distress HEENT: Atraumatic, PERRLA, Mucous membr. moist/pink, EOMI, Sclerae nonicteric Neck: Supple, 2+ carotid pulse no bruit, No LAD, Without JVD or thyroid abnormality Respiratory: Normal air movement, Crackles/rales, Expiratory wheezes, Inspiratory wheezes Cardiovascular: Regular rate/rhythm, Normal S1 S2 Gastrointestinal: Normal bowel sounds, No tenderness Musculoskeletal: No tenderness Integumentary: No rashes Neurological: Normal speech, Normal strength at 5/5 x4 extr, Normal tone Lymphatics: No axilla or inguinal lymphadenopathy - Studies Laboratory Data (last 24 hrs) 04/06/18 10:55: PT 15.4 H, INR 1.30 04/06/18 10:55: WBC 26.9 H*, Hgb 10.9 L, Hct 33.4 L, Plt Count 341 04/06/18 10:55: Sodium 132 L, Potassium 5.0, BUN 81 H, Creatinine 6.42 H*, Glucose 67 L, Magnesium 2.8 H, Total Bilirubin 0.7, AST 114 H, ALT 44, Alkaline Phosphatase 124 H Microbiology Data (last 24 hrs): 04/06/18 13:06 Nasopharnyx Influenza Type A Antigen Screen - Final 04/06/18 13:06 Nasopharnyx Influenza Type B Antigen Screen - Final 04/06/18 15:00 Throat Group A Streptococcus Rapid Screen - Final Assessment and Plan - Problems (Diagnosis) (1) Sepsis Current Visit: Yes Status: Acute Plan: Severe sepsis with septic shock. Most likely secondary to bilateral pneumonia versus acute exacerbation of Crohn's disease -currently on IV vancomycin, Levaquin and Flagyl. Did receive 1 round of Zosyn in the ER -blood culture, urine culture, sputum culture, urine antigen pending at this time -bilateral multilobar pneumonia: -on IV vancomycin and Levaquin. -With recent exposure to water source along with past history of COPD and smoking -Severe community-acquired pneumonia is high on differential -given the GI symptoms possible Legionella pneumonia -mycoplasma strep pneumonia also consider for differential at this time -pulmonology has been consulted. Will await further recommendations at this time -acute exacerbation of Crohn's disease: -with recent episode of diarrhea, acute exacerbation of Crohn's disease cannot be ruled out -started patient on IV steroids at this time. -added Flagyl to the IV antibiotics. -currently also requiring pressor support with IV Levophed. Added vasopressin with a goal of map up above 60 and systolic blood pressure of above 120 -also added zinc, thymine, vitamin-C -IV fluids with bicarb at this time for metabolic acidosis -will follow up with cultures at this time and continue antibiotic Qualifiers: Sepsis type: sepsis due to unspecified organism Qualified Code(s): A41.9 - Sepsis, unspecified organism (2) Acute respiratory distress Current Visit: Yes Status: Acute Plan: Acute hypoxic respiratory distress most likely secondary to bilateral pneumonia and COPD exacerbation -currently on 4 L of nasal cannula saturating well. -will place on BiPAP if nasal cannula fails -pulmonology consulted. Awaiting recommendations at this time -CT scan consistent with multi lobar pneumonia. -patient with significant past medical history of COPD and noncompliance with inhalers and smoking -will start on duo nebs at this time along with steroids as well. (3) Atrial fibrillation with RVR Current Visit: Yes Status: Acute Plan: Patient with atrial fibrillation with RVR in the ER -cardiology consulted. Appreciated recommendations at this time -patient cardioverted back to sinus rhythm at this time -given the low blood pressure will hold starting any beta-blockers at this time -echocardiogram has been ordered. -will continue to monitor patient closely (4) Acute kidney injury Current Visit: Yes Status: Acute Plan: Acute kidney injury with creatinine of 6.32 and GFR of 7. Most likely secondary to acute tubular necrosis secondary to sepsis versus rhabdo -nephrology consulted. Appreciated recommendations at this time -bicarb drip at this time with fluids -avoid nephrotoxic agent continue to monitor closely (5) Rhabdomyolysis Current Visit: Yes Status: Acute Plan: Rhabdomyolysis most likely secondary to sepsis -IV bicarbonate drip at this time. -nephrology consulted. Recommendations appreciated at this time. -will continue to monitor CK CK MB closely. Qualifiers: Rhabdomyolysis type: non-traumatic Qualified Code(s): M62.82 - Rhabdomyolysis (6) COPD (chronic obstructive pulmonary disease) Current Visit: Yes Status: Acute Plan: COPD exacerbation secondary to bilateral pneumonia -duo nebs, steroids, nasal cannula at this time -patient remains full code at this time does agree to intubation if require Qualifiers: COPD type: COPD with acute exacerbation Qualified Code(s): J44.1 - Chronic obstructive pulmonary disease with (acute) exacerbation (7) Crohns disease Current Visit: Yes Status: Acute Plan: History of Crohn's disease with possible acute exacerbation -started on IV steroids at this time. -will get stool cultures at this time as well. -GI consultation if no improvement in symptoms -on IV Flagyl and Levaquin at this time Qualifiers: Gastrointestinal tract location: unspecified location Digestive disease complication type: unspecified complication Qualified Code(s): K50.919 - Crohn 's disease, unspecified, with unspecified complications (8) Hypertension Current Visit: Yes Status: Acute Plan: Currently patient is hypotensive. - Started on Levophed, IV fluids and steroid - Plan Patient currently will be admitted to the ICU for treatment of severe sepsis acute respiratory distress atrial fibrillation and acute kidney injury. Will monitor patient in the next 24-48 hr for any improvement. The patient has no improvement in the status and does have worsening of his symptoms patient may need to be transferred to a tertiary care center for higher level of care. Discharge Plan: Other Plan to discharge in: Greater than 2 days - Advance Directives Does patient have a Living Will: No Does patient have a Durable POA for Healthcare: No - Code Status/Comfort Care Code Status Assessed: Yes Critical Care: No
[2018-04-06 17:52] LABS: Barbiturates NEGATIVE (NEGATIVE); Benzodiazepines POSITIVE (NEGATIVE); Cocaine NEGATIVE (NEGATIVE); METHAMPHETAM POSITIVE (NEGATIVE); Methadone POSITIVE (NEGATIVE); Opiates POSITIVE (NEGATIVE); Phencyclidine NEGATIVE (NEGATIVE); THC Cannibis POSITIVE (NEGATIVE)
[2018-04-06] MEDS: METRONIDAZOLE 500mg IVPB 500 MG/100 ML BAG IV SCH ×2 (17:55→18:00)
[2018-04-06] MEDS: THIAMINE HCL 100 MG TABLET PO SCH (18:32)
[2018-04-06] MEDS: ZINC SULFATE 220 MG CAP PO SCH (18:32)
[2018-04-06] MEDS: ASCORBIC ACID 500 MG TABLET PO SCH (18:32)
[2018-04-06 18:35] LABS: Urine Appearance TURBID; Urine Blood 3+ (NEG); Urine Color DK YELLOW; Urine Glucose NEGATIVE (NEG); Urine Protein 1+ (NEG); Urine Urobilinogen 0.2 mg/dL (0.2-1.0)
[2018-04-06 18:45] LABS: Urine Bilirubin 1+ (NEG); Urine Microscopic Reflex ORDER UMIC
[2018-04-06 19:14] LABS: Urine Amorphous Sediment 3+ /HPF (NONE SEEN); Urine Bacteria 20-50 /HPF (NONE SEEN); Urine Culture Reflex Order REFLEXED
[2018-04-06] MEDS: LEVALBUTEROL 1.25 MG/3 ML NEB NEB SCH (20:00)
[2018-04-06] MEDS: IPRATROPIUM BROM 0.5MG/2.5ML NEB SCH (20:00)
--- NOTE | 2018-04-06 20:15 | CON ---
Date of Consultation: 04/06/2018 Additional Consulting Physician: Dr. Singleton. Reason For Consultation: Elevated BUN, creatinine, fluid management, rhabdomyolysis. History Of Present Illness: This is a pleasant 62-year-old gentleman with significant past medical h istory of Crohn disease, hypertension, hyperlipidemia, no history of any congestive heart failure. E chocardiogram and report back in 2012 within normal limit, hyperlipidemia, arthritis. The patient wa s in his regular state of health until the last couple of days when he started having abdominal pain, nausea, fever without any chills with diarrhea mucousy, try to remit it with home remedy, did not fe el better and for that reason, he reported to the emergency room. When he came to the emergency room , blood pressure was on the lower side. Physical Examination: Vital Signs: Blood pressure 82/60, pulse of 88. Chest: Crackles bilateral. Heart: S1, S2. Regular. Abdomen: No tenderness. No organomegaly. No guarding. No rebound. Extremities: No edema. Neuro: Alert and oriented x3. No focal. Laboratory Data: WBC 26.9, H and H 10.9/33.4, platelets of 341. Sodium 132, potassium 5, bicarb 17, chloride 98, BUN 81, creatinine 6.4, calcium 8.2, magnesium 2.8. CK 3358 and CK-MB 35. Troponin wa s negative. BNP 7600. Chest x-ray, cardiomegaly with congestion which is a new finding. Urine anal ysis is still pending, negative for infection. Urine drug screen positive before, currently still pe nding. ABG was done, pH 7.23, CO2 35, O2 74. Anion gap of 17. Reviewing the record for the patient back in December 2016 creatinine within normal limit 0.8. GFR ab ove 90. Assessment And Plan: Acute kidney injury secondary to cardiorenal/poor perfusion acute tubular necro sis, toxic acute tubular necrosis secondary to sepsis superimposed with rhabdomyolysis. 1.Given the history of autoimmune disease and Crohn disease. I am going to start the patient on IV hydration to establish better blood pressure control. I agree with current hydration and we will mon itor. I am going to send for full serology. 2.We will send for protein creatinine, renal ultrasound and we will follow up the patient. 3.Acidosis. Secondary metabolic acidosis and high anion gap with contraction alkalosis secondary to gastrointestinal loss and sepsis with renal failure. I agree with current hydration. We will monit or. I do not see the need for bicarb drip for the time being. 4.Rhabdomyolysis secondary to dehydration/autoimmune disease complicated with renal failure. Giving the renal failure and rhabdo, I am going to start the patient on the bicarb drip and we will follow up the patient. 5.Marginal hyperkalemia. We will follow up with the hydration. 6.Sepsis with colitis. We will get CT. I agree with the current antibiotic. We will follow up wit h the primary. 7.Crohn disease with flare. I am going to start the patient on prednisone. Continue antibiotic. W e will follow up the patient. Thank you, Dr. Singleton, for allowing us to participate in the care of your patient. PASTOR Voice ID: [id number] Report ID: [id number]
[2018-04-06] MEDS ORDERED: INFLUENZA VACCINE (for 3y+) 0.5 ML DOSE IMVAC ONE (21:00)
[2018-04-07] MEDS: METRONIDAZOLE 500mg IVPB 500 MG/100 ML BAG IV SCH ×4 (00:14→18:17)
[2018-04-07] MEDS: METHYLPREDNISOLONE 40 MG INJ IV SCH ×3 (00:14→18:16)
[2018-04-07] MEDS: LEVALBUTEROL 1.25 MG/3 ML NEB NEB SCH ×4 (01:18→19:20)
[2018-04-07] MEDS: IPRATROPIUM BROM 0.5MG/2.5ML NEB SCH ×4 (01:18→19:20)
[2018-04-07] MEDS: NACHLORIDE 0.45% 1,000 ML with NA BICARB 8.4% 75 MEQ IV SCH ×4 (01:21→12:00)
--- NOTE | 2018-04-07 06:11 | P.INFCA ---
Sepsis Focused Assessment - Sepsis Screen Result Severe Sepsis: Positive Septic Shock: Positive - Evaluation Current stage of sepsis: Septic shock - Vital Signs Reviewed: Yes Heart rate: 104 Blood Pressure: 100/65 Respiratory Rate: 22 O2 Sat by Pulse Oximetry: 96 - Examination Date exam was performed: 04/07/18 Time exam was performed: 01:00 Heart: Regular rate/rhythm, Tachycardia Lungs: Crackles, Decreased breath sounds Peripheral pulses: 2+ Slightly diminished Peripheral pulse location: Radial, Pedal Capillary refill: <2 Seconds Skin examination: Normal turgor
[2018-04-07 06:24] LABS: Absolute Lymphocytes (CBC) 0.2 K/uL (0.7-4.9); Absolute Monocytes 0.6 K/uL (0.1-1.3); Absolute Neutrophil 24.1 K/uL (1.8-8.0); Basophils % 0.2 % (0-1.3); Eosinophils % 0.9 % (0-4.4); Hematocrit 27.1 % (39.6-49.0); Lymphocytes % 0.8 % (15.3-44.8); MPV 8.3 fL (7.6-11.3); Monocytes % 2.3 % (3.3-12.3); RBC Red Blood Cell Count 3.05 M/uL (4.33-5.43)
[2018-04-07 07:06] LABS: Albumin 2.1 g/dL (3.4-5.0); Bilirubin Total 0.4 mg/dL (0.2-1.0); Phosphorus 5.9 mg/dL (2.5-4.9); Potassium 4.4 mmol/L (3.5-5.1); Protein, Total 6.1 g/dL (6.4-8.2); Thyroid Stimulating Hormone 0.386 uIU/mL (0.360-3.740); Uric Acid 8.6 mg/dL (3.5-7.2)
[2018-04-07 07:10] LABS: CKMB Creatine Kinase MB 23.6 ng/mL (0.3-3.6)
[2018-04-07] MEDS: INSULIN -REGULAR HUMAN 50 UNIT/0.5 ML ML SQ SCH ×4 (07:30→20:23)
--- NOTE | 2018-04-07 07:59 | P.CNS ---
Date of Consult: 04/07/18 Primary Care Provider: Dr. PINEDA Chief Complaint: Pneumonia and hypotension History of Present Illness: Patient is 62 years of age admitted with extensive pneumonia he has been coughing for a month worsening shortness of breath he also had acute renal failure for prior history of cardiopulmonary problems patient is an active smoker. Patient is currently on IV Levophed he is very alert responsive cooperative. Patient had altered mental status was also hypothermic chest x- ray showed extensive bilateral infiltrate also has a history of some diarrhea COPD is on chronic pain meds Allergies ketorolac tromethamine [From Toradol] Allergy (Intermediate, Verified 05/17/12 12:58) Itching azathioprine [From Imuran] Allergy (Unverified 09/13/14 13:40) Vomiting azathioprine sodium [From Imuran] Allergy (Unverified 09/13/14 13:40) Vomiting ketorolac Allergy (Unverified 09/13/14 13:40) Vomiting - Past Medical/Surgical History Diabetic: No -: Crohn's disease -: COPD -: Hypertension - Social History Smoking Status: Unknown if ever smoked Alcohol use: Yes CD- Drugs: No Caffeine use: Yes Place of Residence: Home Review of Systems 10-point ROS is otherwise unremarkable General: Weakness Respiratory: Cough, Shortness of Breath Physical Examination Temp Pulse Resp BP Pulse Ox 98.2 F 99 H 21 H 92/63 95 04/07/18 00:00 04/07/18 06:30 04/07/18 06:30 04/07/18 06:30 04/07/18 06:30 General: Alert, In no apparent distress, Oriented x3 HEENT: Atraumatic Neck: Supple Respiratory: Crackles/rales (Bilateral crackles) Cardiovascular: No edema, Normal S1 S2 Gastrointestinal: Normal bowel sounds, Soft and benign Musculoskeletal: No clubbing, No contractures Laboratory Data (last 24 hrs) 04/06/18 10:55: PT 15.4 H, INR 1.30 04/06/18 10:55: WBC 26.9 H*, Hgb 10.9 L, Hct 33.4 L, Plt Count 341 04/06/18 10:55: Sodium 132 L, Potassium 5.0, BUN 81 H, Creatinine 6.42 H*, Glucose 67 L, Magnesium 2.8 H, Total Bilirubin 0.7, AST 114 H, ALT 44, Alkaline Phosphatase 124 H - Problems (1) Pneumonia Current Visit: Yes Status: Acute Plan: Patient is 62 years of age admitted with extensive bilateral pneumonia and acute renal failure he is doing much better today currently weaned off is vasopressors multiple organ dysfunction cultures are pending he is improving not on any BiPAP patient's white count is declining continue to wean off vasopressors Flagyl can be Dc 8 most likely atypical pneumonia white count is declining currently on IV fluids renal function has also significantly improved he appears to be in no distress continue with 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 prednisone tomorrow no prior history of COPD although he does Qualifiers: Pneumonia type: due to unspecified organism Laterality: bilateral
[2018-04-07] MEDS: THIAMINE HCL 100 MG TABLET PO SCH (08:37)
[2018-04-07] MEDS: ASCORBIC ACID 500 MG TABLET PO SCH (08:38)
[2018-04-07] MEDS: ZINC SULFATE 220 MG CAP PO SCH (08:39)
--- NOTE | 2018-04-07 08:42 | RAD REPORT ---
EXAM DESCRIPTION: US - Renal Ultrasound-Complete - 04/06/2018 11:00 pm CLINICAL HISTORY: MICHAEL COMPARISON: No comparisons FINDINGS: Both kidneys are normal in size, shape and echotexture. The right kidney measures 12.5 x 6.0 x 5.7 cm. No hydronephrosis, focal mass or perinephric fluid. Sm all 14 x 9 mm cyst is present in the right kidney. The left kidney measures 12.3 x 5.9 x 5.4 cm. No hydronephrosis, focal mass or perinephric fluid. The urinary bladder is incompletely distended without gross abnormality seen. IMPRESSION: Unremarkable renal sonogram.
--- NOTE | 2018-04-07 09:05 | RAD REPORT ---
EXAM DESCRIPTION: RAD - Chest Single View - 04/07/2018 8:31 am CLINICAL HISTORY: Follow for pneumonia Chest pain. COMPARISON: Chest Single View dated 04/06/2018; Chest Single View dated 04/06/2018; Chest Pa And Lat ( 2 Views) dated 07/07/2015; CHEST SINGLE VIEW dated 09/27/2012 FINDINGS: Portable technique limits examination quality. Mild worsening in left lung pulmonary opacities seen suggesting slight worsening in lung aeration. Ex tensive right-sided pulmonary opacities remain unchanged. The heart is normal in size. No displaced f ractures. IMPRESSION: Mild worsening in left lung aeration since comparative study.
--- NOTE | 2018-04-07 11:07 | P.PN ---
Subjective Date of Service: 04/07/18 Primary Care Provider: Dr. PINEDA Chief Complaint: Pneumonia and hypotension Patient seen and examined at bedside with RN. Case discussed with pulmonology, cardiology, nephrology at this time. No complaints to offer overnight. Did well overall. This morning patient continues to be on the Levophed Hemodynamically stable at this time. He does appear to improve since admission. Saturating well on 2 L of nasal cannula at this time. Review of Systems 10-point ROS is otherwise unremarkable Physical Examination - Vital Signs Temperature: 98.2 F Blood Pressure: 106/66 Pulse: 107 Respirations: 31 Pulse Ox (%): 92 - Physical Exam General: Alert, Oriented x3, Mild distress HEENT: Atraumatic, PERRLA, EOMI Neck: Supple, JVD not distended Respiratory: Normal air movement, Crackles/rales, Expiratory wheezes, Inspiratory wheezes Cardiovascular: Regular rate/rhythm, Normal S1 S2 Gastrointestinal: Normal bowel sounds, No tenderness Musculoskeletal: No tenderness Integumentary: No rashes Neurological: Normal speech, Normal tone, Normal affect Lymphatics: No axilla or inguinal lymphadenopathy - Studies Laboratory Data (last 24 hrs) 04/06/18 10:55: PT 15.4 H, INR 1.30 04/06/18 10:55: WBC 26.9 H*, Hgb 10.9 L, Hct 33.4 L, Plt Count 341 04/06/18 10:55: Sodium 132 L, Potassium 5.0, BUN 81 H, Creatinine 6.42 H*, Glucose 67 L, Magnesium 2.8 H, Total Bilirubin 0.7, AST 114 H, ALT 44, Alkaline Phosphatase 124 H Microbiology Data (last 24 hrs): 04/06/18 10:55 Blood - Blood Anaerobic Blood Culture - Final 04/06/18 13:06 Nasopharnyx Influenza Type A Antigen Screen - Final 04/06/18 13:06 Nasopharnyx Influenza Type B Antigen Screen - Final 04/06/18 15:00 Throat Group A Streptococcus Rapid Screen - Final Medications List Reviewed: Yes Assessment And Plan - Current Problems (Diagnosis) (1) Sepsis Onset Date: 04/07/18 Current Visit: Yes Status: Acute Plan: Severe sepsis with septic shock. Most likely secondary to bilateral pneumonia versus acute exacerbation of Crohn's disease. Improving today. WBC trending down -currently on IV vancomycin, Levaquin and Flagyl. Did receive 1 round of Zosyn in the ER. WIll continue at this time. -blood culture, urine culture, sputum culture, urine antigen pending at this time -currently also requiring pressor support with IV Levophed with a goal of map up above 60 and systolic blood pressure of above 120 -On IV sterioids -On zinc, thymine, vitamin-C -IV fluids with bicarb at this time for metabolic acidosis -bilateral multilobar pneumonia: -on IV vancomycin and Levaquin. -Risk Factors Include: Dirty Water exposure, COPD, Smoking and chronic steroid use -DDX Atypical PNA, H.influenza, Strep Pneu, Mycoplasma -pulmonology has been consulted. Reccs Appreciated -acute exacerbation of Crohn's disease: -with recent episode of diarrhea, acute exacerbation of Crohn's disease cannot be ruled out -started patient on IV steroids at this time. WIll continue till he is weaned of the pressors and Then Switch to PO -added Flagyl to the IV antibiotics. Will Continue till the Stool Culture. Qualifiers: Sepsis type: sepsis due to unspecified organism Qualified Code(s): A41.9 - Sepsis, unspecified organism (2) Acute respiratory distress Onset Date: 04/07/18 Current Visit: Yes Status: Acute Plan: Acute hypoxic respiratory distress most likely secondary to bilateral pneumonia and COPD exacerbation -currently on 2 L of nasal cannula saturating well. -will place on BiPAP if nasal cannula fails -Duonebs, IV steroids -pulmonology consulted. Reccs Appreciated -CT scan consistent with multi lobar pneumonia. -patient with significant past medical history of COPD and noncompliance with inhalers and smoking (3) Atrial fibrillation with RVR Onset Date: 04/07/18 Current Visit: Yes Status: Acute Plan: Patient with atrial fibrillation with RVR in the ER -cardiology consulted. Appreciated recommendations at this time -patient cardioverted back to sinus rhythm at this time -given the low blood pressure will hold starting any beta-blockers at this time -echocardiogram Pending -will continue to monitor patient closely (4) Acute kidney injury Onset Date: 04/07/18 Current Visit: Yes Status: Acute Plan: Acute kidney injury with creatinine of 6.32 and GFR of 7 in ER. Most likely secondary to acute tubular necrosis secondary to sepsis versus rhabdo versus Drug Abuse -Improved today. Cr Down to 3.64 -nephrology consulted. Appreciated recommendations at this time -bicarb drip at this time with fluids -avoid nephrotoxic agent continue to monitor closely (5) Rhabdomyolysis Onset Date: 04/07/18 Current Visit: Yes Status: Acute Plan: Rhabdomyolysis most likely secondary to sepsis -IV bicarbonate drip at this time. -nephrology consulted. Recommendations appreciated at this time. -will continue to monitor CK CK MB closely. Qualifiers: Rhabdomyolysis type: non-traumatic Qualified Code(s): M62.82 - Rhabdomyolysis (6) COPD (chronic obstructive pulmonary disease) Onset Date: 04/07/18 Current Visit: Yes Status: Acute Plan: COPD exacerbation secondary to bilateral pneumonia -duo nebs, steroids, nasal cannula at this time -patient remains full code at this time does agree to intubation if require Qualifiers: COPD type: COPD with acute exacerbation Qualified Code(s): J44.1 - Chronic obstructive pulmonary disease with (acute) exacerbation (7) Crohns disease Onset Date: 04/07/18 Current Visit: Yes Status: Acute Plan: History of Crohn's disease with possible acute exacerbation -Continue IV steriods and IV flagyl till Culture negative -Stool culture pending -GI consultation if no improvement in symptoms Qualifiers: Gastrointestinal tract location: unspecified location Digestive disease complication type: unspecified complication Qualified Code(s): K50.919 - Crohn 's disease, unspecified, with unspecified complications (8) Hypertension Onset Date: 04/07/18 Current Visit: Yes Status: Acute Plan: Currently patient is hypotensive. - Started on Levophed, IV fluids and steroid Qualifiers: Hypertension type: essential hypertension Qualified Code(s): I10 - Essential (primary) hypertension (9) Drug abuse Current Visit: Yes Status: Chronic - Plan Pending Clinical Improvement. Will continue with IV antibiotics, pressor support, steroids at this time. Will follow up with pulmonology, nephrology and GI along with cardiology at this time. If patient has worsening in the status then patient may need to be transferred to a tertiary care center for higher level of care. Discharge Plan: Home Plan to discharge in: Greater than 2 days - Code Status/Comfort Care Code Status Assessed: Yes Critical Care: Yes
[2018-04-07] MEDS: VANCOMYCIN 1.25 GM in NA CHLORIDE 0.9% 250 ML IVPB SCH (11:37)
[2018-04-07] MEDS ORDERED: VANCOMYCIN/NS 1 gm 1 GM/250 ML BAG IV SCH (12:00)
--- NOTE | 2018-04-07 12:13 | ECHO ---
HEIGHT: 6 ft 0 in WEIGHT: 151 lb 0 oz DATE OF STUDY: 04/07/[address]: Wendy Singleton MD 2-DIMENSIONAL: YES M.MODE: YES DOPPLER: YES COLOR FLOW: YES TDS: NO PORTABLE: NO DEFINITY: NO BUBBLE STUDY: NO DIAGNOSIS: CONGESTIVE HEART FAILURE CARDIAC HISTORY: CATHERIZATION: NO SURGERY: NO PROSTHETIC VALVE: NO PACEMAKER: NO MEASUREMENTS (cm) DIASTOLIC (NORMALS) SYSTOLIC (NORMALS) IVSd 0.9 (0.6-1.2) LA Diam 4.1 (1.9-4.0) LVEF 45-49% LVIDd 5.7 (3.5-5.7) LVIDs 4.5 (2.0-3.5) %FS 21% LVPWd 1.0 (0.6-1.2) Ao Diam 2.5 (2.0-3.7) 2 DIMENSIONAL ASSESSMENT: RIGHT ATRIUM: NORMAL LEFT ATRIUM: DILATED RIGHT VENTRICLE: NORMAL LEFT VENTRICLE: NORMAL TRICUSPID VALVE: NORMAL MITRAL VALVE: NORMAL PULMONIC VALVE: NORMAL AORTIC VALVE: NORMAL PERICARDIAL EFFUSION: NONE AORTIC ROOT: NORMAL LEFT VENTRICULAR WALL MOTION: NORMAL. DOPPLER/COLOR FLOW: MILD MITRAL REGURGITATION. COMMENTS: MILDLY DEPRESSED LEFT VENTRICULAR EJECTION FRACTION. DILATED LEFT ATRIUM. MILD MITRAL REGURGITATION. TECHNOLOGIST: TA KINGSLEY RDCS
[2018-04-07 16:48] LABS: Bilirubin Total 0.4 mg/dL (0.2-1.0); Potassium 3.7 mmol/L (3.5-5.1); Protein, Total 5.8 g/dL (6.4-8.2)
--- NOTE | 2018-04-07 17:10 | CON ---
Reason For Consult: Atrial fibrillation. History Of Present Illness: Mr. Springer is a gentleman, who became very confused. He does not have much memory of it, but he was found to be infected in the lungs. He has a pneumonia in the left lung . He does not really give a history that is very consistent with that, but it really looks like a le ft-sided pneumonia, and since being treated for that he has improved. When he first came to the hosp ital, he was in atrial fibrillation, presently he is in sinus rhythm. The patient has no previous hi story of atrial fibrillation. No history of heart disease and with the treatment he has got knee see ms to be doing much better. He is receiving intravenous antibiotics, and for a period of time has be en on Levophed to support his pressure. He was hypotensive. He is getting methylprednisolone, Levaq uin, vancomycin intravenously. Physical Examination: General: He is alert, oriented, pleasant, not in distress. Lungs: Reveal decreased breath sounds in the left. Heart: Regular rate and rhythm, presently it is going about 100 to 105 beats per minute. It is regu lar. I do not hear any particular murmur, rub, or gallop. Vital Signs: Blood pressure 103/65, O2 sa turation 93%. Impression And Plan: The patient had transient hypotension and atrial fibrillation caused by infecti on. He may not need any long-term antiarrhythmic drug therapy. We will withhold those for now and o nly give them if we really he needs it. Anticoagulation in the hospital is appropriate. Long-term a nticoagulation probably will not be needed. He has also been found to have rather marked renal insuf ficiency. Creatinine 3.56 today. We think this may be a consequence of sepsis. It was 6.42 yesterd ay, so hopefully his renal function will improve dramatically with treatment of his hypotension and sepsis and pneumonia. GIL/MODL Voice ID: [id number] Report ID: [id number]
[2018-04-08] MEDS: NACHLORIDE 0.45% 1,000 ML with NA BICARB 8.4% 75 MEQ IV SCH ×2 (00:30)
[2018-04-08] MEDS: METHYLPREDNISOLONE 40 MG INJ IV SCH ×3 (00:33→16:49)
[2018-04-08] MEDS: METRONIDAZOLE 500mg IVPB 500 MG/100 ML BAG IV SCH ×3 (00:33→16:49)
[2018-04-08] MEDS: IPRATROPIUM BROM 0.5MG/2.5ML NEB SCH ×4 (01:00→20:00)
[2018-04-08] MEDS: LEVALBUTEROL 1.25 MG/3 ML NEB NEB SCH ×4 (01:00→20:00)
--- NOTE | 2018-04-08 03:02 | PN ---
Date of Progress Note: 04/07/2018 Chief Complaint: Acute kidney injury. Subjective: Acute kidney injury, severe nonoliguric associated with renal hypoperfusion. Renal func tion has not improved over last 24 hours, although over a last several days there is some improvement of the renal function. The patient has nonoliguric urine output. Electrolytes abnormalities are co ntrolled. There is no metabolic acidosis. Potassium level has improved from 5.0 to 4.0. The patien t has sepsis. White count is elevated up to 25,000. The patient has multiple medical problems. He was found to have a pneumonia and hypotension. He was started on IV fluids to control hypotension an d treat acute kidney injury. The patient has Crohn disease. He was on blood pressure medication estefani or to this admission. He has a known history of hypertension. Review of Systems: Denies fever, chills. Denies nausea, vomiting. Physical Examination: Lungs: Crackles bilaterally. Heart: S1, S2. Abdomen: Soft, benign. Extremities: No edema. Laboratory Data: WBC 26.9, hemoglobin 10.9, platelet count is 331,000. Sodium 132, potassium 5.0, B UN 81, creatinine 6.42, glucose 67, magnesium 2.8, total bilirubin 0.7. Lab work today showed BUN of 66, creatinine 2.4 up to 2.7. Sodium 137, potassium 4.0, chloride 104, CO2 22. Impression And Plan: 1.Acute kidney injury. Continue IV fluids for volume depletion and hypotension. 2.Pneumonia. The patient is on steroids and IV antibiotics. We will monitor blood culture closely. 3.Monitoring for any evidence of nephritis. Check proteinuria panel and rule out bacteremia. Urina lysis showed microscopic hematuria. There is 2+ proteinuria present. Workup is started for vasculit is and results are pending for lupus anticoagulant and cardiolipin syndrome. 4.The patient had ultrasound done and did not show hydronephrosis. The patient is responding to IV fluids and treatment with antibiotics to stabilize sepsis. 5.Renal ultrasound did not show urinary retention. Renal ultrasound showed right kidney measures 12 .5 cm in length and left kidney 12.3 cm in length. The patient needs to be evaluated for HIV, and pr oteinuria panel will be checked with a workup for monoclonal gammopathy of unknown significance. BETTINA/KHARI Voice ID: [id number] Report ID: [id number]
[2018-04-08 03:39] LABS: Rheumatoid Factor NEG (NEG)
[2018-04-08 05:36] LABS: Absolute Lymphocytes (CBC) 0.2 K/uL (0.7-4.9); Absolute Monocytes 0.9 K/uL (0.1-1.3); Absolute Neutrophil 16.6 K/uL (1.8-8.0); Basophils % 0.2 % (0-1.3); Hematocrit 27.5 % (39.6-49.0); Lymphocytes % 1.4 % (15.3-44.8); MPV 8.3 fL (7.6-11.3); Monocytes % 5.2 % (3.3-12.3); RBC Red Blood Cell Count 3.12 M/uL (4.33-5.43)
[2018-04-08 06:05] LABS: Bilirubin Total 0.4 mg/dL (0.2-1.0); CKMB Creatine Kinase MB 5.4 ng/mL (0.3-3.6); Magnesium 2.1 mg/dL (1.8-2.4); Potassium 3.2 mmol/L (3.5-5.1); Protein, Total 6.2 g/dL (6.4-8.2)
[2018-04-08] MEDS: INSULIN -REGULAR HUMAN 50 UNIT/0.5 ML ML SQ SCH ×4 (07:30→21:00)
[2018-04-08] MEDS ORDERED: FUROSEMIDE 40 MG/4 ML VIAL IV ONE ×2 (07:46→21:00)
--- NOTE | 2018-04-08 07:54 | P.PN ---
Subjective Date of Service: 04/08/18 Primary Care Provider: Dr. PINEDA Chief Complaint: Respiratory failure pneumonia Patient's condition is stable he did experience some desaturation currently on BiPAP hemodynamically stable weaned off vasopressors Review of Systems General: Weakness Respiratory: Cough, Shortness of Breath Physical Examination - Vital Signs Temperature: 97.7 F Blood Pressure: 127/80 Pulse: 104 Respirations: 20 Pulse Ox (%): 97 - Physical Exam General: Alert, Oriented x3 HEENT: Atraumatic Neck: Supple Respiratory: Crackles/rales (Crackles bilaterally) Cardiovascular: No edema, Regular rate/rhythm - Studies Microbiology Data (last 24 hrs): 04/06/18 15:00 Throat Culture & Sensitivity - Final 04/06/18 10:55 Blood - Blood Anaerobic Blood Culture - Final Medications List Reviewed: Yes Assessment & Plan - Problems (Diagnosis) (1) Pneumonia Onset Date: 04/07/18 Current Visit: Yes Status: Acute Plan: Patient admitted with extensive bilateral pneumonia HIV screen is pending his kidney function has improved chest x-ray still shows significant bilateral infiltrates I suggest stopping the IV fluids trial of Lasix reduce the dose of IV steroids cultures are negative white count is declining Dc Flagyl continue with vancomycin and levofloxacin most likely he has some form of atypical pneumonia HIV PCPs possibility Qualifiers: Pneumonia type: due to unspecified organism Laterality: bilateral
[2018-04-08] MEDS: THIAMINE HCL 100 MG TABLET PO SCH (08:02)
[2018-04-08] MEDS: Levofloxacin 750mg IV 750 MG/150 ML BAG IV SCH (08:02)
[2018-04-08] MEDS: ZINC SULFATE 220 MG CAP PO SCH (08:02)
[2018-04-08] MEDS: ASCORBIC ACID 500 MG TABLET PO SCH (08:02)
--- NOTE | 2018-04-08 08:32 | RAD REPORT ---
EXAM DESCRIPTION: RAD - Chest Single View - 04/08/2018 6:39 am CLINICAL HISTORY: Follow for pneumonia Chest pain. COMPARISON: Chest Single View dated 04/07/2018; Chest Single View dated 04/06/2018; Chest Single View dated 04/06/2018; Chest Pa And Lat (2 Views) dated 07/07/2015 FINDINGS: Portable technique limits examination quality. Extensive bilateral pulmonary opacities are again noted, mildly progressive since the comparative geraldine dy. The heart is normal in size. Right-sided venous catheter tip in SVC. IMPRESSION: Mild worsening in lung aeration since comparative study.
[2018-04-08] MEDS ORDERED: POTASSIUM 25 MEQ EFFERV TAB PO ONE (11:11)
--- NOTE | 2018-04-08 12:03 | P.PN ---
Subjective Date of Service: 04/08/18 Primary Care Provider: Dr. PINEDA Chief Complaint: Respiratory failure pneumonia Subjective: Improving Pt admitted for nausea, vomiting and diarrhea MICHAEL Cr 6.4 on admission and improved to 1.5 MICHAEL improved on IVF , now desat and [place] CXR finding agree to hold IVF give lasix 40mg IV tonight FU serology K replaced Physical Examination - Vital Signs Temperature: 97.7 F Blood Pressure: 128/73 Pulse: 100 Respirations: 20 Pulse Ox (%): 97 - Physical Exam General: In no apparent distress, Oriented x3 HEENT: Atraumatic Neck: Supple, Without JVD or thyroid abnormality Respiratory: Crackles/rales Cardiovascular: No edema, Regular rate/rhythm, Normal S1 S2 Gastrointestinal: Normal bowel sounds, Soft and benign - Studies Microbiology Data (last 24 hrs): 04/06/18 14:49 Clean Catch Urine [place] Count - Final 04/06/18 14:49 Clean Catch Urine - Final No growth. 04/06/18 15:00 Throat Culture & Sensitivity - Final 04/06/18 10:55 Blood - Blood Anaerobic Blood Culture - Final Medications List Reviewed: Yes Assessment And Plan - Current Problems (Diagnosis) (1) Acute kidney injury Onset Date: 04/07/18 Current Visit: Yes Status: Acute (2) Rhabdomyolysis Onset Date: 04/07/18 Current Visit: Yes Status: Acute Qualifiers: Rhabdomyolysis type: non-traumatic Qualified Code(s): M62.82 - Rhabdomyolysis (3) Sepsis Onset Date: 04/07/18 Current Visit: Yes Status: Acute Qualifiers: Sepsis type: sepsis due to unspecified organism Qualified Code(s): A41.9 - Sepsis, unspecified organism (4) Drug abuse Current Visit: Yes Status: Chronic - Plan Pt admitted for nausea, vomiting and diarrhea . MICHAEL unknown baseline Cr Likely prerenal MICHAEL Cr 6.4 on admission and improved to 1.5 MICHAEL improved on IVF , now desat and [place] CXR finding agree to hold IVF give lasix 40mg IV tonight FU serology renal US no hydro ua +ve for prot and bld F/u serology W/u will send for UPC Pneumonia Cont Abx F/u HIV panel hypokalemia K replaced HAGMA due to MICHAEL resolved polysubtance abuse not in withdrawal
--- NOTE | 2018-04-08 12:52 | P.PN ---
Subjective Date of Service: 04/08/18 Primary Care Provider: Dr. PINEDA Chief Complaint: Respiratory failure pneumonia Patient seen and examined at bedside with RN. Case discussed with pulmonology, cardiology, nephrology at this time. This AM pt oxygen is desaturating down to 79-80% n NC. Placed on BIPAP. Saturating well after BIPAP. Educated extensively on drug abuse. No other complaints to offer at this time. Review of Systems 10-point ROS is otherwise unremarkable Physical Examination - Vital Signs Temperature: 97.7 F Blood Pressure: 128/73 Pulse: 100 Respirations: 20 Pulse Ox (%): 97 - Physical Exam General: Alert, Oriented x3, Mild distress HEENT: Atraumatic, PERRLA, EOMI Neck: Supple, JVD not distended Respiratory: Normal air movement, Crackles/rales, Expiratory wheezes, Inspiratory wheezes Cardiovascular: Regular rate/rhythm, Normal S1 S2 Gastrointestinal: Normal bowel sounds, No tenderness Musculoskeletal: No tenderness Integumentary: No rashes Neurological: Normal speech, Normal tone, Normal affect Lymphatics: No axilla or inguinal lymphadenopathy - Studies Microbiology Data (last 24 hrs): 04/06/18 14:49 Clean Catch Urine [place] Count - Final 04/06/18 14:49 Clean Catch Urine - Final No growth. 04/06/18 15:00 Throat Culture & Sensitivity - Final 04/06/18 10:55 Blood - Blood Anaerobic Blood Culture - Final Medications List Reviewed: Yes Assessment And Plan - Current Problems (Diagnosis) (1) Sepsis Onset Date: 04/07/18 Current Visit: Yes Status: Acute Plan: Severe sepsis with septic shock. Most likely secondary to bilateral pneumonia versus acute exacerbation of Crohn's disease. Improving today. WBC trending down -currently on IV vancomycin, Levaquin and Flagyl. Did receive 1 round of Zosyn in the ER. WIll continue at this time. -blood culture, urine culture, sputum culture, urine antigen pending at this time -currently off the pressor and hemodynamically stable -On IV sterioids which are reduced to 20 IV q.6 hr -On zinc, thymine, vitamin-C -discontinue IV fluids with bicarb, due to worsening of chest x-ray today possibility of fluid overload. -bilateral multilobar pneumonia: -on IV vancomycin and Levaquin. -Risk Factors Include: Dirty Water exposure, COPD, Smoking and chronic steroid use -DDX Atypical PNA, H.influenza, Strep Pneu, Mycoplasma -pulmonology has been consulted. Reccs Appreciated -acute exacerbation of Crohn's disease: -with recent episode of diarrhea, acute exacerbation of Crohn's disease cannot be ruled out -On IV steroids at this time. Reduced the dose today. Anticipate switched to p.o. in next 24-48 out -on IV Flagyl. Will continue. Until stool cultures negative. Qualifiers: Sepsis type: sepsis due to unspecified organism Qualified Code(s): A41.9 - Sepsis, unspecified organism (2) Acute respiratory distress Onset Date: 04/07/18 Current Visit: Yes Status: Acute Plan: Acute hypoxic respiratory distress most likely secondary to bilateral pneumonia and COPD exacerbation -acute desaturation this morning. Most likely secondary to fluid overload. -Placed on BiPAP at this time and IV Lasix x1 at this time -Duonebs, IV steroids, BiPAP -pulmonology consulted. Reccs Appreciated -CT scan consistent with multi lobar pneumonia. -patient with significant past medical history of COPD and noncompliance with inhalers and smoking (3) Atrial fibrillation with RVR Onset Date: 04/07/18 Current Visit: Yes Status: Acute Plan: Patient with atrial fibrillation with RVR in the ER. Now in sinus rhythm -cardiology consulted. Appreciated recommendations at this time -patient cardioverted back to sinus rhythm at this time -echocardiogram with ejection fraction of 40-45%. Systolic heart failure. (4) Acute kidney injury Onset Date: 04/07/18 Current Visit: Yes Status: Acute Plan: Acute kidney injury with creatinine of 6.32 and GFR of 7 in ER. Most likely secondary to acute tubular necrosis secondary to sepsis versus rhabdo versus Drug Abuse -Improved today. Cr Down to 1.5 to -nephrology consulted. Appreciated recommendations at this time -bicarb drip Dc this morning -avoid nephrotoxic agent continue to monitor closely (5) Rhabdomyolysis Onset Date: 04/07/18 Current Visit: Yes Status: Acute Plan: Rhabdomyolysis most likely secondary to sepsis. Improved today -nephrology consulted. Recommendations appreciated at this time. -CK and CK MB within normal limits today Qualifiers: Rhabdomyolysis type: non-traumatic Qualified Code(s): M62.82 - Rhabdomyolysis (6) COPD (chronic obstructive pulmonary disease) Onset Date: 04/07/18 Current Visit: Yes Status: Acute Plan: COPD exacerbation secondary to bilateral pneumonia -duo nebs, steroids, BiPAP for now -patient remains full code at this time does agree to intubation if require Qualifiers: COPD type: COPD with acute exacerbation Qualified Code(s): J44.1 - Chronic obstructive pulmonary disease with (acute) exacerbation (7) Crohns disease Onset Date: 04/07/18 Current Visit: Yes Status: Acute Plan: History of Crohn's disease with possible acute exacerbation -Continue IV steriods and IV flagyl till stool Culture negative -GI consultation if no improvement in symptoms Qualifiers: Gastrointestinal tract location: unspecified location Digestive disease complication type: unspecified complication Qualified Code(s): K50.919 - Crohn 's disease, unspecified, with unspecified complications (8) Hypertension Onset Date: 04/07/18 Current Visit: Yes Status: Acute Plan: Currently stable. Dc pressors at this time Qualifiers: Hypertension type: essential hypertension Qualified Code(s): I10 - Essential (primary) hypertension (9) Drug abuse Current Visit: Yes Status: Chronic - Plan Pending Clinical Improvement. Will continue with IV antibiotics, BiPAP, and steroids at this time. Will follow up with pulmonology, nephrology and GI along with cardiology at this time. If patient has worsening in the status then patient may need to be transferred to a tertiary care center for higher level of care. Discharge Plan: Home Plan to discharge in: 48 Hours - Code Status/Comfort Care Code Status Assessed: Yes Critical Care: No
--- NOTE | 2018-04-08 13:14 | PN ---
Date of Progress Note: 04/08/2018 Mr. Springer was seen today, 04/08/2018, in followup. Dr. Gutierrez had seen Mr. Springer for paroxysmal atrial fibrillation. He had a pneumonia, which probably causes atrial fibrillation. He came in hypo tensive. Creatinine now is 3.56. He is in a sinus rhythm now. We will not plan for any long-term a nticoagulation. Echocardiogram showed an ejection fraction of 49%. Continue medical therapy as is. Nephrology is following. JENNIFER/KHARI Voice ID: [id number] Report ID: [id number]
[2018-04-08] MEDS ORDERED: GABAPENTIN 400 MG CAP PO SCH (14:00)
[2018-04-08] MEDS: GABAPENTIN 100 MG CAP PO SCH ×2 (14:32→21:18)
[2018-04-08] MEDS: FUROSEMIDE 20 MG/ 2ML VIAL IV SCH (16:40)
--- NOTE | 2018-04-08 17:12 | RAD REPORT ---
EXAM DESCRIPTION: RAD - Chest Single View - 04/08/2018 5:07 pm CLINICAL HISTORY: SOB Chest pain. COMPARISON: Chest Single View dated 04/08/2018; Chest Single View dated 04/07/2018; Chest Single View dated 04/06/2018; Chest Single View dated 04/06/2018 FINDINGS: Portable technique limits examination quality. Mild to moderate improvement is seen in bilateral pulmonary opacities since the comparative study. Th e heart is normal in size. No displaced fractures.Right IJ catheter its tip in the SVC. IMPRESSION: Mild to moderate improvement in lung aeration since comparative study.
[2018-04-08] MEDS ORDERED: TEMAZEPAM 15 MG CAP PO PRN (20:37)
[2018-04-08] MEDS: VANCOMYCIN 1.25 GM in NA CHLORIDE 0.9% 250 ML IVPB SCH (23:34)
[2018-04-09] MEDS: METHYLPREDNISOLONE 40 MG INJ IV SCH (00:36)
[2018-04-09] MEDS: METRONIDAZOLE 500mg IVPB 500 MG/100 ML BAG IV SCH ×2 (00:36→08:36)
[2018-04-09] MEDS: IPRATROPIUM BROM 0.5MG/2.5ML NEB SCH ×2 (02:20→08:55)
[2018-04-09] MEDS: LEVALBUTEROL 1.25 MG/3 ML NEB NEB SCH ×2 (02:20→08:55)
[2018-04-09 05:13] LABS: Absolute Lymphocytes (CBC) 0.4 K/uL (0.7-4.9); Absolute Monocytes 0.8 K/uL (0.1-1.3); Basophils % 0.1 % (0-1.3); Hematocrit 28.8 % (39.6-49.0); Lymphocytes % 2.8 % (15.3-44.8); MPV 7.9 fL (7.6-11.3); Monocytes % 5.7 % (3.3-12.3); RBC Red Blood Cell Count 3.31 M/uL (4.33-5.43)
[2018-04-09 05:33] LABS: Albumin 2.1 g/dL (3.4-5.0); Bilirubin Total 0.4 mg/dL (0.2-1.0); CKMB Creatine Kinase MB 1.3 ng/mL (0.3-3.6); Phosphorus 2.8 mg/dL (2.5-4.9); Potassium 3.4 mmol/L (3.5-5.1); Protein, Total 6.4 g/dL (6.4-8.2)
[2018-04-09] MEDS: PANTOPRAZOLE 40MG TABLET PO SCH (06:47)
[2018-04-09 06:54] VITALS: BMI 19.1
[2018-04-09] MEDS: INSULIN -REGULAR HUMAN 50 UNIT/0.5 ML ML SQ SCH ×2 (07:30→11:30)
[2018-04-09] MEDS ORDERED: LEVALBUTEROL 1.25 MG/3 ML NEB NEB PRN (08:26)
--- NOTE | 2018-04-09 08:26 | P.PN ---
Subjective Date of Service: 04/09/18 Primary Care Provider: Dr. PINEDA Chief Complaint: Respiratory failure pneumonia Patient is doing much better he is more alert responsive cooperative feeling better currently off BiPAP cultures are so far negative Review of Systems General: Weakness Respiratory: Cough, Shortness of Breath Physical Examination - Vital Signs Temperature: 98.2 F Blood Pressure: 117/72 Pulse: 86 Respirations: 21 Pulse Ox (%): 96 - Physical Exam General: Alert, In no apparent distress, Oriented x3 Respiratory: Crackles/rales, Expiratory wheezes Cardiovascular: No edema, Regular rate/rhythm, Normal S1 S2 - Studies Microbiology Data (last 24 hrs): 04/06/18 14:49 Clean Catch Urine [place] Count - Final 04/06/18 14:49 Clean Catch Urine - Final No growth. 04/06/18 15:00 Throat Culture & Sensitivity - Final Medications List Reviewed: Yes Assessment & Plan - Problems (Diagnosis) (1) Pneumonia Onset Date: 04/07/18 Current Visit: Yes Status: Acute Plan: Patient is 62 years of age admitted with bilateral pneumonia change to low-dose steroids Dc vancomycin continue with Lasix still has bilateral infiltrates blood pressure stable kidney function is improving his creatinine is back down to normal continue with Lasix add Brovana laboratory results are still pending stable to be transferred to the floor [facility] for DVT prophylaxis Qualifiers: Pneumonia type: due to unspecified organism Laterality: bilateral
[2018-04-09] MEDS: ASCORBIC ACID 500 MG TABLET PO SCH (08:31)
[2018-04-09] MEDS: GABAPENTIN 100 MG CAP PO SCH ×3 (08:31→21:29)
[2018-04-09] MEDS: FUROSEMIDE 20 MG/ 2ML VIAL IV SCH ×2 (08:31→16:28)
[2018-04-09] MEDS: THIAMINE HCL 100 MG TABLET PO SCH (08:31)
[2018-04-09] MEDS: ZINC SULFATE 220 MG CAP PO SCH (08:35)
[2018-04-09] MEDS: ENOXAPARIN 30 MG/0.3 ML SQ SCH (08:35)
[2018-04-09] MEDS ORDERED: predniSONE 10 MG TAB PO SCH (09:00)
--- NOTE | 2018-04-09 09:03 | RAD REPORT ---
EXAM DESCRIPTION: Eduar Single View04/09/2018 6:43 am CLINICAL HISTORY: Shortness of breath COMPARISON: April 08, 2018 FINDINGS: Mild improvement in the diffuse bilateral pulmonary opacities. No other change noted IMPRESSION: Mild improvement in the bilateral pneumonia
[2018-04-09] MEDS: ARFORMOTEROL TARTRATE 15 MCG/2 ML VIAL.NEB NEB SCH ×2 (10:12→20:00)
--- NOTE | 2018-04-09 11:10 | P.PN ---
Subjective Date of Service: 04/09/18 Primary Care Provider: Dr. PINEDA Chief Complaint: Respiratory failure pneumonia Patient seen and examined at bedside with RN. Case discussed with pulmonology, cardiology, nephrology at this time. Patient doing much better this morning. Back to nasal cannula now saturating 90-99%. Review of Systems 10-point ROS is otherwise unremarkable Physical Examination - Vital Signs Temperature: 98.2 F Blood Pressure: 110/74 Pulse: 101 Respirations: 26 Pulse Ox (%): 93 - Physical Exam General: Alert, In no apparent distress HEENT: Atraumatic, PERRLA, EOMI Neck: Supple, JVD not distended Respiratory: Normal air movement, Crackles/rales, Expiratory wheezes, Inspiratory wheezes, Rhonchi/gurgles Cardiovascular: Regular rate/rhythm, Normal S1 S2 Gastrointestinal: Normal bowel sounds, No tenderness Musculoskeletal: No tenderness Integumentary: No rashes Neurological: Normal speech, Normal tone, Normal affect Lymphatics: No axilla or inguinal lymphadenopathy - Studies Microbiology Data (last 24 hrs): 04/06/18 14:49 Clean Catch Urine [place] Count - Final 04/06/18 14:49 Clean Catch Urine - Final No growth. 04/06/18 15:00 Throat Culture & Sensitivity - Final Medications List Reviewed: Yes Assessment And Plan - Current Problems (Diagnosis) (1) Sepsis Onset Date: 04/07/18 Current Visit: Yes Status: Acute Plan: Severe sepsis with septic shock. -Most likely secondary to bilateral pneumonia continues to improve here in the hospital. WBC trending down -currently on IV vancomycin, Levaquin and Flagyl. Did receive 1 round of Zosyn in the ER. -Will go ahead and deescalate the antibiotics to IV Levaquin at this time. Dc vancomycin and Flagyl -blood culture, urine culture, negative thus far -sputum culture, urine antigen pending at this time -currently off the pressor and hemodynamically stable -On zinc, thymine, vitamin-C -bilateral multilobar pneumonia: -now on IV Levaquin. Dc vancomycin -Risk Factors Include: Dirty Water exposure, COPD, Smoking and chronic steroid use -DDX Atypical PNA, H.influenza, Strep Pneu, Mycoplasma -pulmonology has been consulted. Reccs Appreciated -acute exacerbation of Crohn's disease: -with recent episode of diarrhea, acute exacerbation of Crohn's disease cannot be ruled out -p.o. steroids now -Dc Flagyl no further diarrhea noted Qualifiers: Sepsis type: sepsis due to unspecified organism Qualified Code(s): A41.9 - Sepsis, unspecified organism (2) Acute respiratory distress Onset Date: 04/07/18 Current Visit: Yes Status: Acute Plan: Acute hypoxic respiratory distress most likely secondary to bilateral pneumonia and COPD exacerbation -improved this morning -now on nasal cannula. -IV Lasix for fluid overload -pulmonology consulted. Reccs Appreciated (3) Atrial fibrillation with RVR Onset Date: 04/07/18 Current Visit: Yes Status: Acute Plan: Patient with atrial fibrillation with RVR in the ER. Now in sinus rhythm -cardiology consulted. Appreciated recommendations at this time -patient cardioverted back to sinus rhythm at this time -echocardiogram with ejection fraction of 40-45%. Systolic heart failure. (4) Acute kidney injury Onset Date: 04/07/18 Current Visit: Yes Status: Acute Plan: Acute kidney injury with creatinine of 6.32 and GFR of 7 in ER. -Most likely secondary to acute tubular necrosis secondary to sepsis versus rhabdo versus Drug Abuse -Improved today. Cr Down to 1.12 today -nephrology consulted. Appreciated recommendations at this time -avoid nephrotoxic agent continue to monitor closely (5) Rhabdomyolysis Onset Date: 04/07/18 Current Visit: Yes Status: Acute Plan: Rhabdomyolysis most likely secondary to sepsis. Resolved now -nephrology consulted. Recommendations appreciated at this time. -CK and CK MB within normal limits Qualifiers: Rhabdomyolysis type: non-traumatic Qualified Code(s): M62.82 - Rhabdomyolysis (6) COPD (chronic obstructive pulmonary disease) Onset Date: 04/07/18 Current Visit: Yes Status: Acute Plan: COPD exacerbation secondary to bilateral pneumonia -duo nebs, p.o. steroids, nasal cannula now -patient remains full code at this time does agree to intubation if require Qualifiers: COPD type: COPD with acute exacerbation Qualified Code(s): J44.1 - Chronic obstructive pulmonary disease with (acute) exacerbation (7) Crohns disease Onset Date: 04/07/18 Current Visit: Yes Status: Acute Plan: History of Crohn's disease with possible acute exacerbation -switched to p.o. steroids today. -Dc Flagyl as patient no longer having diarrhea. Qualifiers: Gastrointestinal tract location: unspecified location Digestive disease complication type: unspecified complication Qualified Code(s): K50.919 - Crohn 's disease, unspecified, with unspecified complications (8) Hypertension Onset Date: 04/07/18 Current Visit: Yes Status: Acute Plan: Currently stable. Dc pressors at this time Qualifiers: Hypertension type: essential hypertension Qualified Code(s): I10 - Essential (primary) hypertension (9) Drug abuse Current Visit: Yes Status: Chronic - Plan Pending Clinical Improvement. Will continue with IV Levaquin, nasal cannula, and p.o. steroids at this time. Will follow up with pulmonology, nephrology and GI along with cardiology at this time. If patient has worsening in the status then patient may need to be transferred to a tertiary care center for higher level of care. Discharge Plan: Other Plan to discharge in: 72 Hours - Code Status/Comfort Care Code Status Assessed: Yes Critical Care: No
[2018-04-09 14:59] LABS: Hepatitis C Virus RNA (PCR)log <1.18 log IU/mL
--- NOTE | 2018-04-09 16:27 | PN ---
Date of Progress Note: 04/09/2018 NEPHROLOGY FOLLOWUP Subjective: The patient doing well. Still have some diarrhea. The patient been on Flagyl. Physical Examination: Vital Signs: When I saw the patient, blood pressure 110/74, pulse 101, afebrile. The patient had go od urine output of 6 L. Chest: Clear to auscultation. Heart: S1, S2. Systolic murmur. Abdomen: Soft, nontender. Extremities: No edema. Laboratory Data: WBC down to 14.2, H and H 9.7/28.8, platelets of 366. Sodium 140, potassium 3.4, b icarb 35, BUN 44, creatinine 1.1, calcium 8.4, phosphorus 2.8, magnesium of 2. TSH of 0.3. PTH is s till pending. SPEP serology still pending. Current Medications: The patient on include: 1.Levaquin 750 q.48h. 2.Lovenox. 3.Gabapentin. 4.Lasix, received single dose yesterday. 5.Pantoprazole. 6.Prednisone. 7.KCl. 8.Thiamine. Assessment And Plan: 1.Acute kidney injury secondary to prerenal, recovered, resolved. I am going to go ahead and keep h olding IV fluid. We will monitor. 2.Acidosis, resolved. 3.Colitis, Crohn disease. I am going to go ahead and adjust his Levaquin to be daily as kidney func tion has been recovered. 4.Hyperkalemia, has been resolved. 5.Tachycardia, atrial fibrillation, as by Cardiology. FELICIA/KHARI Voice ID: [id number] Report ID: [id number]
[2018-04-09 17:36] LABS: Anti-Cardiolipin IgA Antibody <11 APL (<=11)
[2018-04-09 20:30] LABS: HIV 1/2 Antibody Diff Not indicated.; HIV AG/AB 4TH GEN Non-reactive (Non-reactive)
[2018-04-09] MEDS ORDERED: POTASSIUM CL SA 10 MEQ TAB PO ONE (21:00)
[2018-04-10 05:27] LABS: Absolute Monocytes 1.2 K/uL (0.1-1.3); Absolute Neutrophil 14.5 K/uL (1.8-8.0); Eosinophils % 0.1 % (0-4.4); Hematocrit 32.6 % (39.6-49.0); Lymphocytes % 6.2 % (15.3-44.8); MPV 7.8 fL (7.6-11.3); Monocytes % 7.4 % (3.3-12.3)
[2018-04-10 05:50] LABS: Albumin 2.3 g/dL (3.4-5.0); Bilirubin Total 0.3 mg/dL (0.2-1.0); Magnesium 2.2 mg/dL (1.8-2.4); Phosphorus 2.3 mg/dL (2.5-4.9); Potassium 4.3 mmol/L (3.5-5.1); Protein, Total 6.7 g/dL (6.4-8.2)
[2018-04-10] MEDS: POTASS/SODIUM PHOSPHATE 1 PKT POWD.PACK PO SCH ×3 (06:22→09:49)
[2018-04-10] MEDS: PANTOPRAZOLE 40MG TABLET PO SCH (06:22)
[2018-04-10 06:36] LABS: Blood Morphology Comment NOT SEEN (NOT SEEN); Platelet Estimate ADEQ
[2018-04-10] MEDS: FUROSEMIDE 20 MG/ 2ML VIAL IV SCH (08:17)
[2018-04-10] MEDS: ENOXAPARIN 30 MG/0.3 ML SQ SCH (08:18)
[2018-04-10] MEDS: THIAMINE HCL 100 MG TABLET PO SCH (08:18)
[2018-04-10] MEDS: ZINC SULFATE 220 MG CAP PO SCH (08:18)
[2018-04-10] MEDS: ASCORBIC ACID 500 MG TABLET PO SCH (08:19)
[2018-04-10] MEDS: predniSONE 20 MG TAB PO SCH (08:19)
[2018-04-10] MEDS: GABAPENTIN 100 MG CAP PO SCH ×3 (08:19→20:08)
[2018-04-10] MEDS: Levofloxacin 750mg IV 750 MG/150 ML BAG IV SCH (08:20)
--- NOTE | 2018-04-10 09:45 | P.PN ---
Subjective Date of Service: 04/10/18 Primary Care Provider: Dr. PINEDA Chief Complaint: Respiratory failure pneumonia Subjective: Improving Pt admitted for nausea, vomiting and diarrhea MICHAEL Cr 6.4 on admission and improved to 0.9 UO ~15liter last 3days BP on the low side now Will hold lasix Rpt CXR tomorrow Physical Examination - Vital Signs Temperature: 98.8 F Blood Pressure: 107/89 Pulse: 92 Respirations: 23 Pulse Ox (%): 95 - Physical Exam General: In no apparent distress, Oriented x3 HEENT: Atraumatic Neck: Supple, Without JVD or thyroid abnormality Respiratory: Diminished, Crackles/rales Cardiovascular: No edema, Normal S1 S2, No rubs, No murmurs, Other (tachycardia ) Gastrointestinal: Normal bowel sounds, Soft and benign - Studies Medications List Reviewed: Yes Assessment And Plan - Current Problems (Diagnosis) (1) Acute kidney injury Onset Date: 04/07/18 Current Visit: Yes Status: Acute (2) Rhabdomyolysis Onset Date: 04/07/18 Current Visit: Yes Status: Acute Qualifiers: Rhabdomyolysis type: non-traumatic Qualified Code(s): M62.82 - Rhabdomyolysis (3) Sepsis Onset Date: 04/07/18 Current Visit: Yes Status: Acute Qualifiers: Sepsis type: sepsis due to unspecified organism Qualified Code(s): A41.9 - Sepsis, unspecified organism (4) Drug abuse Current Visit: Yes Status: Chronic - Plan Pt admitted for nausea, vomiting and diarrhea . MICHAEL , resolved unknown baseline Cr Likely prerenal MICHAEL Cr 6.4 on admission a FU serology renal US no hydro ua +ve for prot and bld F/u serology W/u Hep C, HIV-ve, C3,4 WNl F/U SPEP, UPEP, HEp B and ANCA will hold Lasix, and Rpt CXR tomorrow Pneumonia Cont Abx HAGMA due to MICHAEL resolved polysubtance abuse not in withdrawal
[2018-04-10] MEDS: ARFORMOTEROL TARTRATE 15 MCG/2 ML VIAL.NEB NEB SCH ×2 (10:25→20:00)
--- NOTE | 2018-04-10 11:35 | P.PN ---
Subjective Date of Service: 04/10/18 Primary Care Provider: Dr. IPNEDA Chief Complaint: Respiratory failure pneumonia Patient seen and examined at bedside with RN. Case discussed with pulmonology, cardiology, nephrology at this time. Patient doing much better this morning. Back to nasal cannula now saturating 90-92%. Hypotensive this AM. Review of Systems 10-point ROS is otherwise unremarkable Physical Examination - Vital Signs Temperature: 98.8 F Blood Pressure: 107/89 Pulse: 92 Respirations: 23 Pulse Ox (%): 95 - Physical Exam General: Alert, In no apparent distress HEENT: Atraumatic, PERRLA, EOMI Neck: Supple, JVD not distended Respiratory: Normal air movement, Expiratory wheezes, Inspiratory wheezes Cardiovascular: Regular rate/rhythm, Normal S1 S2 Gastrointestinal: Normal bowel sounds, No tenderness Musculoskeletal: No tenderness Integumentary: No rashes Neurological: Normal speech, Normal tone, Normal affect Lymphatics: No axilla or inguinal lymphadenopathy - Studies Medications List Reviewed: Yes Assessment And Plan - Current Problems (Diagnosis) (1) Sepsis Onset Date: 04/07/18 Current Visit: Yes Status: Acute Plan: Severe sepsis with septic shock. Most likely secondary to bilateral pneumonia. -WBC elevated today possible 2.2 to Steroids vs infection -Currently on IV levaquin. Restarted on Vanc today until sputum negative and WBC trending down. -blood culture, urine culture, negative thus far -sputum culture, urine antigen pending at this time -On zinc, thymine, vitamin-C -bilateral multilobar pneumonia: -now on IV Levaquin and Vanc -Risk Factors Include: Dirty Water exposure, COPD, Smoking and chronic steroid use -DDX Atypical PNA, H.influenza, Strep Pneu, Mycoplasma -pulmonology has been consulted. Reccs Appreciated -acute exacerbation of Crohn's disease: -resolved -p.o. steroids now -Dc Flagyl no further diarrhea noted Qualifiers: Sepsis type: sepsis due to unspecified organism Qualified Code(s): A41.9 - Sepsis, unspecified organism (2) Acute respiratory distress Onset Date: 04/07/18 Current Visit: Yes Status: Acute Plan: Acute hypoxic respiratory distress most likely secondary to bilateral pneumonia and COPD exacerbation -improved this morning -now on nasal cannula. -pulmonology consulted. Reccs Appreciated (3) Atrial fibrillation with RVR Onset Date: 04/07/18 Current Visit: Yes Status: Acute Plan: Patient with atrial fibrillation with RVR in the ER. Now in sinus rhythm -cardiology consulted. Appreciated recommendations at this time -patient cardioverted back to sinus rhythm at this time -echocardiogram with ejection fraction of 40-45%. Systolic heart failure. (4) Acute kidney injury Onset Date: 04/07/18 Current Visit: Yes Status: Acute Plan: Acute kidney injury with creatinine of 6.32 and GFR of 7 in ER. -Most likely secondary to acute tubular necrosis secondary to sepsis versus rhabdo versus Drug Abuse -Improved now -nephrology consulted. Appreciated recommendations at this time -avoid nephrotoxic agent continue to monitor closely (5) Rhabdomyolysis Onset Date: 04/07/18 Current Visit: Yes Status: Acute Plan: Rhabdomyolysis most likely secondary to sepsis. Resolved now -nephrology consulted. Recommendations appreciated at this time. -CK and CK MB within normal limits Qualifiers: Rhabdomyolysis type: non-traumatic Qualified Code(s): M62.82 - Rhabdomyolysis (6) COPD (chronic obstructive pulmonary disease) Onset Date: 04/07/18 Current Visit: Yes Status: Acute Plan: COPD exacerbation secondary to bilateral pneumonia -duo nebs, p.o. steroids, nasal cannula now -patient remains full code at this time does agree to intubation if require Qualifiers: COPD type: COPD with acute exacerbation Qualified Code(s): J44.1 - Chronic obstructive pulmonary disease with (acute) exacerbation (7) Crohns disease Onset Date: 04/07/18 Current Visit: Yes Status: Acute Plan: History of Crohn's disease with possible acute exacerbation. Reoslved now -switched to p.o. steroids today. -Dc Flagyl as patient no longer having diarrhea. Qualifiers: Gastrointestinal tract location: unspecified location Digestive disease complication type: unspecified complication Qualified Code(s): K50.919 - Crohn 's disease, unspecified, with unspecified complications (8) Hypertension Onset Date: 04/07/18 Current Visit: Yes Status: Acute Plan: Currently stable. Qualifiers: Hypertension type: essential hypertension Qualified Code(s): I10 - Essential (primary) hypertension (9) Drug abuse Current Visit: Yes Status: Chronic - Plan Pending Clinical Improvement. Will continue with IV Levaquin and vanc, nasal cannula, and p.o. steroids at this time. Will follow up with pulmonology, nephrology and GI along with cardiology at this time.
--- NOTE | 2018-04-10 12:48 | RAD REPORT ---
EXAM DESCRIPTION: RADChest Pa And Lat (2 Views)04/10/2018 12:27 pm CLINICAL HISTORY: Shortness of breath COMPARISON: April 09 FINDINGS: Bilateral pulmonary opacities continue to improved The heart is normal size. A central venous catheter remains in place IMPRESSION: Partial resolution in diffuse bilateral pulmonary opacities
[2018-04-10] MEDS ORDERED: VANCOMYCIN 1.25 GM in NA CHLORIDE 0.9% 250 ML IVPB SCH (13:00)
[2018-04-10 13:37] LABS: HBsAG Nonreactive (Nonreactive); Hepatitis A IgM Antibody Nonreactive
[2018-04-10] MEDS: VANCOMYCIN ORAL SOLN 250 MG/5 ML OSYR PO SCH ×3 (14:03→23:50)
--- NOTE | 2018-04-10 15:13 | P.PN ---
Subjective Date of Service: 04/10/18 Primary Care Provider: Dr. PINEDA Chief Complaint: Respiratory failure pneumonia Patient is improving doing much better pressures is low I suspect is secondary to aggressive diuresis the headaches have been stopped denies any fever or chills Review of Systems General: Weakness Respiratory: Cough, Shortness of Breath Physical Examination - Vital Signs Temperature: 98.8 F Blood Pressure: 97/67 Pulse: 110 Respirations: 24 Pulse Ox (%): 92 - Physical Exam General: Alert, In no apparent distress, Oriented x3 HEENT: Atraumatic Neck: Supple Respiratory: Clear to auscultation bilaterally Cardiovascular: No edema - Studies Medications List Reviewed: Yes Assessment & Plan - Problems (Diagnosis) (1) Pneumonia Onset Date: 04/07/18 Current Visit: Yes Status: Acute Plan: Patient is 62 years of age admitted with bilateral pneumonia is chest x-rays improving kidney function is now normal white count is mildly elevated cultures are so far negative apart from C. difficile in the stool. I agree with stopping Lasix transfer to the floor continue with low-dose steroids HIV and hepatitis screen is negative Qualifiers: Pneumonia type: due to unspecified organism Laterality: bilateral
[2018-04-10 19:38] LABS: Albumin, (SPE) 2.2 g/dL (3.8-4.8); Alpha-1-Globulins 0.7 g/dL (0.2-0.3); Alpha-2-Globulins 0.9 g/dL (0.5-0.9); Gamma Globulins 0.6 g/dL (0.8-1.7); INTERPRETATION REPORT
[2018-04-10] MEDS ORDERED: TEMAZEPAM 15 MG CAP PO ONE (20:00)
[2018-04-11 04:44] LABS: Albumin 2.2 g/dL (3.4-5.0); Bilirubin Total 0.4 mg/dL (0.2-1.0); Phosphorus 3.2 mg/dL (2.5-4.9); Potassium 4.1 mmol/L (3.5-5.1); Protein, Total 6.5 g/dL (6.4-8.2)
[2018-04-11] MEDS: PANTOPRAZOLE 40MG TABLET PO SCH (05:56)
[2018-04-11] MEDS: VANCOMYCIN ORAL SOLN 250 MG/5 ML OSYR PO SCH ×4 (05:58→23:20)
[2018-04-11 08:33] LABS: UR PROTEIN 44 mg/dL (<11.9)
[2018-04-11 08:54] LABS: Urine Total Volume 24 Hours 6400 ml
[2018-04-11] MEDS ORDERED: VANCOMYCIN 1 GM in NA CHLORIDE 0.9% 500 ML IVPB SCH (09:00)
[2018-04-11] MEDS: THIAMINE HCL 100 MG TABLET PO SCH (09:15)
[2018-04-11] MEDS: ZINC SULFATE 220 MG CAP PO SCH (09:15)
[2018-04-11] MEDS: ASCORBIC ACID 500 MG TABLET PO SCH (09:16)
[2018-04-11] MEDS: GABAPENTIN 100 MG CAP PO SCH ×3 (09:16→21:03)
[2018-04-11] MEDS: ENOXAPARIN 30 MG/0.3 ML SQ SCH (09:23)
[2018-04-11] MEDS: predniSONE 20 MG TAB PO SCH (09:23)
[2018-04-11] MEDS: ARFORMOTEROL TARTRATE 15 MCG/2 ML VIAL.NEB NEB SCH ×2 (09:59→19:52)
--- NOTE | 2018-04-11 10:17 | RAD REPORT ---
EXAM DESCRIPTION: RAD - Chest Pa And Lat (2 Views) - 04/11/2018 10:11 am CLINICAL HISTORY: SOB Chest pain. COMPARISON: Chest Pa And Lat (2 Views) dated 04/10/2018; Chest Single View dated 04/09/2018; Chest Sin gle View dated 04/08/2018; Chest Single View dated 04/08/2018 FINDINGS: Since the 04/10/2018, there has been mild improvement in bilateral pulmonary opacities. Th e heart is normal in size. No displaced fractures. Right-sided venous catheter has tip in the SVC. IMPRESSION: Mild improvement in lung aeration since comparative study.
[2018-04-11 10:28] LABS: P-ANCA Anti-Myeloperoxidase Ab <1.0 AI (<1.0)
[2018-04-11] MEDS: VANCOMYCIN 1.25 GM in NA CHLORIDE 0.9% 250 ML IVPB SCH (11:12)
[2018-04-11 12:11] LABS: Urine Protein/Creatinine Ratio 0.51 ratio (<0.15)
--- NOTE | 2018-04-11 12:51 | P.PN ---
Subjective Date of Service: 04/11/18 Primary Care Provider: Dr. PINEDA Chief Complaint: Respiratory failure pneumonia Subjective: Improving Patient is doing better he is diarrhea has decreased still on oxygen white count elevated Review of Systems General: Weakness Respiratory: Shortness of Breath Physical Examination - Vital Signs Temperature: 96.6 F Blood Pressure: 95/62 Pulse: 89 Respirations: 20 Pulse Ox (%): 93 - Physical Exam General: Alert, In no apparent distress, Oriented x3 Respiratory: Clear to auscultation bilaterally Cardiovascular: No edema, Regular rate/rhythm - Studies Microbiology Data (last 24 hrs): 04/06/18 11:32 Blood - Blood Aerobic Blood Culture - Final No growth in 5 days. 04/06/18 11:32 Blood - Blood Anaerobic Blood Culture - Final No growth in 5 days. 04/06/18 10:55 Blood - Blood Aerobic Blood Culture - Final No growth in 5 days. 04/06/18 10:55 Blood - Blood Anaerobic Blood Culture - Final Medications List Reviewed: Yes Assessment & Plan - Problems (Diagnosis) (1) Pneumonia Onset Date: 04/07/18 Current Visit: Yes Status: Acute Plan: Patient is 62 years of age admitted with bilateral pneumonia he has improved significantly cultures all negative white count is still elevated currently on levofloxacin vancomycin Dc steroids the pantoprazole lab tests so far nondiagnostic including serology renal function is now normal blood pressure is slightly low oxygenation satisfactory is on nasal cannula oxygen plan to ambulate possible discharge on Saturday Dc lisinopril at home chest x-ray shows a mild improvement possible discharge on Saturday check room air pulse ox Qualifiers: Pneumonia type: due to unspecified organism Laterality: bilateral Plan to discharge in: 48 Hours
--- NOTE | 2018-04-11 13:08 | P.PN ---
Subjective Date of Service: 04/11/18 Primary Care Provider: Dr. PINEDA Chief Complaint: Respiratory failure pneumonia Patient seen and examined at bedside with RN. Case discussed with pulmonology, cardiology, nephrology at this time. Patient doing much better this morning. Back to nasal cannula now saturating 90-92%. Continues to be hypertensive this morning along with elevated WBC. Patient states that his diarrhea is getting better now is having soft stool rather than watery diarrhea Review of Systems 10-point ROS is otherwise unremarkable Physical Examination - Vital Signs Temperature: 96.6 F Blood Pressure: 95/62 Pulse: 89 Respirations: 20 Pulse Ox (%): 93 - Physical Exam General: Alert, In no apparent distress HEENT: Atraumatic, PERRLA, EOMI Neck: Supple, JVD not distended Respiratory: Normal air movement, Crackles/rales, Expiratory wheezes, Inspiratory wheezes Cardiovascular: Regular rate/rhythm, Normal S1 S2 Gastrointestinal: Normal bowel sounds, No tenderness Musculoskeletal: No tenderness Integumentary: No rashes Neurological: Normal speech, Normal tone, Normal affect Lymphatics: No axilla or inguinal lymphadenopathy - Studies Microbiology Data (last 24 hrs): 04/06/18 11:32 Blood - Blood Aerobic Blood Culture - Final No growth in 5 days. 04/06/18 11:32 Blood - Blood Anaerobic Blood Culture - Final No growth in 5 days. 04/06/18 10:55 Blood - Blood Aerobic Blood Culture - Final No growth in 5 days. 04/06/18 10:55 Blood - Blood Anaerobic Blood Culture - Final Medications List Reviewed: Yes Assessment And Plan - Current Problems (Diagnosis) (1) Sepsis Onset Date: 04/07/18 Current Visit: Yes Status: Acute Plan: Severe sepsis with septic shock. Most likely secondary to bilateral pneumonia. -WBC elevated today to 20.2 -Currently on IV levaquin. Restarted on IV Vanc today due to concern for MRSA -PO Vanc for Cdiff -blood culture, urine culture, negative thus far -sputum culture, urine antigen pending at this time -On zinc, thymine, vitamin-C -bilateral multilobar pneumonia: -Restarted on IV vanc and Continue IV levaquin for now -Risk Factors Include: Dirty Water exposure, COPD, Smoking and chronic steroid use -DDX Atypical PNA, H.influenza, Strep Pneu, Mycoplasma, MRSA -pulmonology has been consulted. Reccs Appreciated -acute exacerbation of Crohn's disease with Cdiff +: -Cdiff + -PO steroids -PO Vanc Qualifiers: Sepsis type: sepsis due to unspecified organism Qualified Code(s): A41.9 - Sepsis, unspecified organism (2) Acute respiratory distress Onset Date: 04/07/18 Current Visit: Yes Status: Acute Plan: Acute hypoxic respiratory distress most likely secondary to bilateral pneumonia and COPD exacerbation -improved this morning -now on nasal cannula. -pulmonology consulted. Reccs Appreciated (3) Atrial fibrillation with RVR Onset Date: 04/07/18 Current Visit: Yes Status: Acute Plan: Patient with atrial fibrillation with RVR in the ER. Now in sinus rhythm -cardiology consulted. Appreciated recommendations at this time -patient cardioverted back to sinus rhythm at this time -echocardiogram with ejection fraction of 40-45%. Systolic heart failure. (4) Acute kidney injury Onset Date: 04/07/18 Current Visit: Yes Status: Acute Plan: Acute kidney injury with creatinine of 6.32 and GFR of 7 in ER. Resolved Now -Most likely secondary to acute tubular necrosis secondary to sepsis versus rhabdo versus Drug Abuse -nephrology consulted. Appreciated recommendations at this time -avoid nephrotoxic agent continue to monitor closely -DC IV fluids due to Pulmonary Edema (5) Rhabdomyolysis Onset Date: 04/07/18 Current Visit: Yes Status: Acute Plan: Rhabdomyolysis most likely secondary to sepsis. Resolved now -nephrology consulted. Recommendations appreciated at this time. -CK and CK MB within normal limits Qualifiers: Rhabdomyolysis type: non-traumatic Qualified Code(s): M62.82 - Rhabdomyolysis (6) COPD (chronic obstructive pulmonary disease) Onset Date: 04/07/18 Current Visit: Yes Status: Acute Plan: COPD exacerbation secondary to bilateral pneumonia -duo nebs, p.o. steroids, nasal cannula now -patient remains full code at this time does agree to intubation if require Qualifiers: COPD type: COPD with acute exacerbation Qualified Code(s): J44.1 - Chronic obstructive pulmonary disease with (acute) exacerbation (7) Crohns disease Onset Date: 04/07/18 Current Visit: Yes Status: Acute Plan: History of Crohn's disease with possible acute exacerbation. -Cdiff + -PO steriods and PO vanc for Cdiff Qualifiers: Gastrointestinal tract location: unspecified location Digestive disease complication type: unspecified complication Qualified Code(s): K50.919 - Crohn 's disease, unspecified, with unspecified complications (8) Hypertension Onset Date: 04/07/18 Current Visit: Yes Status: Acute Plan: Currently stable. Qualifiers: Hypertension type: essential hypertension Qualified Code(s): I10 - Essential (primary) hypertension (9) Drug abuse Current Visit: Yes Status: Chronic - Plan Pending Clinical Improvement. Patient's WBC count elevated today. Restarted back on IV vancomycin for possible MRSA continue on IV Levaquin for atypical coverage. Patient also on p.o. vancomycin for C. diff positive. Currently patient unable to get sputum collected. Will still pursue sputum culture at this time. Blood culture is pending at this time as well along with the urine culture. Will monitor patient closely. Patient has been hypertensive for past 48 hr will continue to monitor closely. IV fluids with caution if needed it due to pulmonary edema while here in the hospital. If patient gets acutely worse with his respiratory or hemodynamic status can be transferred to the ICU for close monitoring. Discharge Plan: Home Plan to discharge in: Greater than 2 days - Code Status/Comfort Care Code Status Assessed: Yes Critical Care: No
[2018-04-11 13:38] LABS: UR MICROALBUMIN 2.4 mg/dL (< 1.9)
[2018-04-11] MEDS ORDERED: Levofloxacin 750mg IV 750 MG/150 ML BAG IV SCH (18:00)
[2018-04-11] MEDS: IPRATROPIUM BROM 0.5MG/2.5ML NEB PRN (19:52)
[2018-04-12] MEDS: VANCOMYCIN ORAL SOLN 250 MG/5 ML OSYR PO SCH ×3 (06:00→17:07)
[2018-04-12 06:10] LABS: Absolute Lymphocytes (CBC) 1.5 K/uL (0.7-4.9); Absolute Monocytes 1.3 K/uL (0.1-1.3); Basophils % 0.1 % (0-1.3); Eosinophils % 2.7 % (0-4.4); Hematocrit 29.3 % (39.6-49.0); Lymphocytes % 7.3 % (15.3-44.8); Monocytes % 6.3 % (3.3-12.3); RBC Red Blood Cell Count 3.33 M/uL (4.33-5.43)
[2018-04-12 06:20] LABS: Albumin 2.1 g/dL (3.4-5.0); Bilirubin Total 0.3 mg/dL (0.2-1.0); Potassium 4.3 mmol/L (3.5-5.1)
[2018-04-12 06:53] LABS: Blood Morphology Comment NOT SEEN (NOT SEEN); Platelet Estimate INCR; Urine White Blood Cell Casts OK
[2018-04-12] MEDS: ARFORMOTEROL TARTRATE 15 MCG/2 ML VIAL.NEB NEB SCH ×2 (08:11→21:00)
--- NOTE | 2018-04-12 08:11 | P.PN ---
Subjective Date of Service: 04/10/18 I was called to evaluate patient because he needed ICU beds. I needed to see if he was stable for transfer. Patient is doing better. At this time he is stable for transfer to the general medical floor. He is a little tachycardic with the mildly elevated white blood cell count will be able to watch him closely on the floor as well. Review of Systems 10-point ROS is otherwise unremarkable Physical Examination - Vital Signs Temperature: 97.1 F Blood Pressure: 94/56 Pulse: 84 Respirations: 18 Pulse Ox (%): 94 - Physical Exam General: Alert, In no apparent distress, Oriented x3 HEENT: Atraumatic, PERRLA, EOMI Neck: Supple, JVD not distended Respiratory: Clear to auscultation bilaterally, Normal air movement Cardiovascular: Regular rate/rhythm, Normal S1 S2, No murmurs Gastrointestinal: Normal bowel sounds, Soft and benign, Non-distended, No tenderness Musculoskeletal: No tenderness Integumentary: No rashes Neurological: Normal speech, Normal tone, Normal affect Lymphatics: No axilla or inguinal lymphadenopathy - Studies Microbiology Data (last 24 hrs): 04/06/18 11:32 Blood - Blood Aerobic Blood Culture - Final No growth in 5 days. 04/06/18 11:32 Blood - Blood Anaerobic Blood Culture - Final No growth in 5 days. 04/06/18 10:55 Blood - Blood Aerobic Blood Culture - Final No growth in 5 days. 04/06/18 10:55 Blood - Blood Anaerobic Blood Culture - Final Medications List Reviewed: Yes Assessment & Plan - Problems (Diagnosis) (1) Clostridium difficile colitis Current Visit: Yes Status: Acute (2) Atrial fibrillation with RVR Onset Date: 04/07/18 Current Visit: Yes Status: Acute (3) COPD (chronic obstructive pulmonary disease) Onset Date: 04/07/18 Current Visit: Yes Status: Acute Qualifiers: COPD type: COPD with acute exacerbation Qualified Code(s): J44.1 - Chronic obstructive pulmonary disease with (acute) exacerbation (4) Crohns disease Onset Date: 04/07/18 Current Visit: Yes Status: Acute Qualifiers: Gastrointestinal tract location: unspecified location Digestive disease complication type: unspecified complication Qualified Code(s): K50.919 - Crohn 's disease, unspecified, with unspecified complications (5) Hypertension Onset Date: 04/07/18 Current Visit: Yes Status: Acute Qualifiers: Hypertension type: essential hypertension Qualified Code(s): I10 - Essential (primary) hypertension (6) Rhabdomyolysis Onset Date: 04/07/18 Current Visit: Yes Status: Acute Qualifiers: Rhabdomyolysis type: non-traumatic Qualified Code(s): M62.82 - Rhabdomyolysis - Plan 1. Continue with IV hydration 2. Continue with IV antibiotics 3. Continue with pain control 4. May benefit from clear liquid diet in the morning 5. GI input appreciated 6. Serial H&H, and we will monitor CBC, BMP, LFTs and lipase along with electrolytes. 7. Transfer to the general medical floor 8. GI and DVT prophylaxis Discharge Plan: Home Plan to discharge in: Greater than 2 days - Advance Directives Does patient have a Living Will: No Does patient have a Durable POA for Healthcare: No - Code Status/Comfort Care Code Status Assessed: Yes Code Status: Full Code Critical Care: No Time Spent Managing PTS Care (In Minutes): 25
[2018-04-12] MEDS: GABAPENTIN 100 MG CAP PO SCH ×3 (08:37→20:23)
[2018-04-12] MEDS: ENOXAPARIN 30 MG/0.3 ML SQ SCH (08:37)
[2018-04-12] MEDS: ZINC SULFATE 220 MG CAP PO SCH (08:37)
[2018-04-12] MEDS ORDERED: NA CHLORIDE 0.9% 250 ML IV PRN (09:10)
[2018-04-12] MEDS ORDERED: NA CHLORIDE 0.9% 250 ML IV ONE (10:16)
[2018-04-12] MEDS: VANCOMYCIN 1.25 GM in NA CHLORIDE 0.9% 250 ML IVPB SCH (10:47)
--- NOTE | 2018-04-12 11:13 | P.PN ---
Subjective Date of Service: 04/12/18 Primary Care Provider: Dr. PINEDA Chief Complaint: Elevated white count Patient is doing well as blood pressure is little low white count is elevated denies any abdominal pain Review of Systems 10-point ROS is otherwise unremarkable General: Weakness Physical Examination - Vital Signs Temperature: 97.1 F Blood Pressure: 94/56 Pulse: 84 Respirations: 18 Pulse Ox (%): 94 - Physical Exam General: Alert, Oriented x3 HEENT: Atraumatic Neck: Supple Respiratory: Clear to auscultation bilaterally Cardiovascular: No edema, Regular rate/rhythm - Studies Microbiology Data (last 24 hrs): 04/06/18 11:32 Blood - Blood Aerobic Blood Culture - Final No growth in 5 days. 04/06/18 11:32 Blood - Blood Anaerobic Blood Culture - Final No growth in 5 days. 04/06/18 10:55 Blood - Blood Aerobic Blood Culture - Final No growth in 5 days. 04/06/18 10:55 Blood - Blood Anaerobic Blood Culture - Final Medications List Reviewed: Yes Assessment & Plan - Problems (Diagnosis) (1) Pneumonia Onset Date: 04/07/18 Current Visit: Yes Status: Acute Plan: Pay his pneumonia has improved significantly on the x-ray although his white count remains elevated he is eating and drinking filter changer to p.o. levofloxacin does not appear to be septic all those blood pressure is low I recommend IV fluid boluses Dc fluid restriction renal function is now normal serum cortisol level Dc zinc chemistries reviewed titrate sat to 90% still hypoxic on room air Qualifiers: Pneumonia type: due to unspecified organism Laterality: bilateral
[2018-04-12] MEDS ORDERED: NA CHLORIDE 0.9% 500 ML IV ONE (11:20)
[2018-04-12] MEDS: levoFLOXacin 500 MG TAB PO SCH (12:24)
--- NOTE | 2018-04-12 13:27 | P.PN ---
Subjective Date of Service: 04/12/18 Primary Care Provider: Dr. PINEDA Chief Complaint: Elevated white count Subjective: Improving, Other (Blood pressure low today. Patient given fluid boluses.) Physical Examination - Vital Signs Temperature: 97.1 F Blood Pressure: 108/56 Pulse: 89 Respirations: 18 Pulse Ox (%): 94 - Physical Exam General: Alert, In no apparent distress, Oriented x3, Cooperative HEENT: Atraumatic Neck: Supple Respiratory: Clear to auscultation bilaterally, Normal air movement Cardiovascular: Normal pulses, Regular rate/rhythm Gastrointestinal: Normal bowel sounds, Soft and benign, Non-distended, No masses , No rebound, No guarding Musculoskeletal: No erythema, No tenderness, No warmth Integumentary: No erythema, No warmth, No cyanosis Neurological: Normal speech, Normal strength at 5/5 x4 extr, Normal tone, Normal affect - Studies Microbiology Data (last 24 hrs): 04/06/18 11:32 Blood - Blood Aerobic Blood Culture - Final No growth in 5 days. 04/06/18 11:32 Blood - Blood Anaerobic Blood Culture - Final No growth in 5 days. 04/06/18 10:55 Blood - Blood Aerobic Blood Culture - Final No growth in 5 days. 04/06/18 10:55 Blood - Blood Anaerobic Blood Culture - Final Medications List Reviewed: Yes Assessment & Plan Discharge Plan: Home Plan to discharge in: 48 Hours Physician Review Additional Text: Impression: Septic shock secondary to bilateral pneumonia Acute on chronic respiratory failure secondary to bilateral pneumonia and COPD exacerbation Atrial fibrillation with RVR Acute renal injury likely secondary to ATN with dehydration Crohns disease with C. Diff colitis HTN Plan: Septic shock secondary to bilateral pneumonia: Patient improved. Will wean off oxygen. Case discussed with pulmonology. Patient to be transition to oral antibiotic therapy. Will recheck chest x-ray tomorrow. Will continue monitor closely. Patient given several boluses of IV fluid due to low blood pressure and likely hypovolemia. Patient may require IV fluids. Will monitor closely. Once blood pressure much improved then will start to ambulate. Acute on chronic respiratory failure secondary to bilateral pneumonia and COPD exacerbation: Continue to wean off oxygen. Will continue with antibiotic therapy and COPD medication. Atrial fibrillation with RVR: Patient now in sinus rhythm. Will monitor closely. Acute renal injury likely secondary to ATN with dehydration: The patient got several boluses of IV fluid. Will continue with IV fluids. Crohns disease with C. Diff colitis: Continue with antibiotic therapy. HTN: Blood pressure medication on hold. Time Spent Managing Pts Care (In Minutes): 55
[2018-04-12] MEDS: NACHLORIDE 0.45% 1,000 ML IV SCH (14:05)
--- NOTE | 2018-04-12 15:30 | PN ---
Date of Progress Note: 04/12/2018 Chief Complaint: Acute kidney injury. History Of Present Illness: Acute kidney injury, severe; nonoliguric, on admission creatinine was 6. 4. The patient was found to have acute kidney injury, complicated by rhabdomyolysis. He responded t o IV fluids. Creatinine level has improved. The patient developed some fluid overload and required dose of Lasix. The patient is feeling better today. He was found to have orthostatic hypotension and is on IV hayde l saline. Review of Systems: Denies fever, chills. Physical Examination: Lungs: Clear to auscultation bilaterally. Heart: S1, S2. Abdomen: Soft, benign. Extremities: No edema. Impression And Plan: 1.Acute kidney injury, in recovery phase. Renal function back to baseline. 2.Rhabdomyolysis. The patient received fluids and monitor CK level. Continue to re-evaluate phosph orus and potassium, magnesium level. 3.Sepsis. The patient will continue antibiotics according to sensitivity panel. 4.Orthostatic hypotension. IV fluids resumed to control volemia. EB/MODL Voice ID: [id number] Report ID: [id number]
[2018-04-12] MEDS: IPRATROPIUM BROM 0.5MG/2.5ML NEB PRN (21:00)
[2018-04-13] MEDS: VANCOMYCIN ORAL SOLN 250 MG/5 ML OSYR PO SCH ×4 (00:34→17:37)
[2018-04-13 05:33] LABS: Absolute Lymphocytes (CBC) 1.6 K/uL (0.7-4.9); Absolute Monocytes 1.3 K/uL (0.1-1.3); Absolute Neutrophil 12.7 K/uL (1.8-8.0); Basophils % 0.2 % (0-1.3); Eosinophils % 6.3 % (0-4.4); Hematocrit 27.1 % (39.6-49.0); Lymphocytes % 9.8 % (15.3-44.8); MPV 8.1 fL (7.6-11.3); Monocytes % 7.8 % (3.3-12.3); RBC Red Blood Cell Count 3.06 M/uL (4.33-5.43)
[2018-04-13 05:56] LABS: ALT/SGPT 12 U/L (12-78); AST/SGOT 10 U/L (15-37); Albumin 1.9 g/dL (3.4-5.0); Alkaline Phosphatase 61 U/L (45-117); BUN Blood Urea Nitrogen 29 mg/dL (7-18); Bicarbonate 28 mmol/L (21-32); Bilirubin Total 0.2 mg/dL (0.2-1.0); Glucose Level 86 mg/dL (74-106); Potassium 4.5 mmol/L (3.5-5.1); Protein, Total 5.5 g/dL (6.4-8.2); Sodium Level 141 mmol/L (136-145)
[2018-04-13] MEDS: GABAPENTIN 100 MG CAP PO SCH ×3 (08:14→20:36)
[2018-04-13] MEDS: NACHLORIDE 0.45% 1,000 ML IV SCH (08:14)
[2018-04-13] MEDS: levoFLOXacin 500 MG TAB PO SCH (08:14)
[2018-04-13] MEDS: ENOXAPARIN 30 MG/0.3 ML SQ SCH (08:17)
[2018-04-13] MEDS: VANCOMYCIN 1.25 GM in NA CHLORIDE 0.9% 250 ML IVPB SCH (10:43)
--- NOTE | 2018-04-13 11:10 | P.PN ---
Subjective Date of Service: 04/13/18 Primary Care Provider: Dr. PINEDA Chief Complaint: Elevated white count Subjective: Improving, Doing well Physical Examination - Vital Signs Temperature: 97.8 F Blood Pressure: 98/78 Pulse: 84 Respirations: 18 Pulse Ox (%): 95 - Physical Exam General: Alert, In no apparent distress, Oriented x3, Cooperative HEENT: Atraumatic Neck: Supple Respiratory: Clear to auscultation bilaterally, Normal air movement Cardiovascular: Normal pulses, Regular rate/rhythm Gastrointestinal: Normal bowel sounds, Soft and benign, Non-distended, No tenderness, No masses, No rebound, No guarding Musculoskeletal: No erythema, No tenderness, No warmth Integumentary: No tenderness/swelling, No erythema, No warmth, No cyanosis Neurological: Normal speech, Normal strength at 5/5 x4 extr, Normal tone, Normal affect - Studies Medications List Reviewed: Yes Assessment & Plan Discharge Plan: Home Plan to discharge in: 24 Hours Physician Review Additional Text: Impression: Septic shock secondary to bilateral pneumonia Acute on chronic respiratory failure secondary to bilateral pneumonia and COPD exacerbation Atrial fibrillation with RVR Acute renal injury likely secondary to ATN with dehydration Crohns disease with C. Diff colitis and stool culture positive for Staph aureus HTN Anemia likely of chronic disease with iron deficiency Plan: Septic shock secondary to bilateral pneumonia: Patient improved. Patient off oxygen. Antibiotics to be adjusted. Blood cultures negative. Will ambulate with physical therapy. Anticipate discharge in the next 24-48 hr. Will determine if the patient will require skilled placement. Will continue with IV fluids. Monitor blood pressure closely. Acute on chronic respiratory failure secondary to bilateral pneumonia and COPD exacerbation: Continue to wean off oxygen. Will continue with antibiotic therapy and COPD medication. Atrial fibrillation with RVR: Patient now in sinus rhythm. Will monitor closely. Acute renal injury likely secondary to ATN with dehydration: This has improved with IV fluids. Will continue monitor closely. Crohns disease with C. Diff colitis and stool culture positive for Staph aureus : Continue with antibiotic therapy but will adjust medication. HTN: Blood pressure medication on hold. Anemia likely of chronic disease with iron deficiency: Will start iron supplementation. Will monitor closely. Time Spent Managing Pts Care (In Minutes): 55
[2018-04-13] MEDS: ARFORMOTEROL TARTRATE 15 MCG/2 ML VIAL.NEB NEB SCH ×2 (15:12→20:00)
[2018-04-13] MEDS: FAMOTIDINE 20 MG TAB PO SCH (20:36)
[2018-04-13 22:07] VITALS: O2SAT 96
[2018-04-14] MEDS: NACHLORIDE 0.45% 1,000 ML IV SCH (00:05)
[2018-04-14] MEDS: VANCOMYCIN ORAL SOLN 250 MG/5 ML OSYR PO SCH ×3 (00:06→11:51)
--- NOTE | 2018-04-14 02:23 | PN ---
Date of Progress Note: 04/13/2018 Chief Complaint: Acute kidney injury. History Of Present Illness: Acute kidney injury, nonoliguric, in recovery phase. On admission, crea tinine was 6.4. The patient was found to have acute kidney injury complicated by rhabdomyolysis. He completed IV fluids. Primarily, he had IV normal saline to treat acute kidney injury. Subsequently , he developed some fluid overload and received Lasix. Yesterday, he had episodes of hypotension and was resumed on IV fluids. Review of Systems: Denies fever, chills. Physical Examination: Lungs: Clear to auscultation bilaterally. Heart: S1, S2. Abdomen: Soft, benign. Extremities: No edema. Impression And Plan: 1.Acute kidney injury in recovery phase. Renal function at baseline. 2.Rhabdomyolysis. The patient completed IV fluids. Monitor phosphorus level and CK level. 3.Sepsis. The patient will continue antibiotics. 4.Orthostatic hypotension. IV fluids resumed. The patient is feeling better. Monitor fluid jamie DUNBAR/LASHAUNL Voice ID: [id number] Report ID: [id number]
[2018-04-14 06:04] LABS: ALT/SGPT 12 U/L (12-78); AST/SGOT 9 U/L (15-37); Alkaline Phosphatase 66 U/L (45-117); BUN Blood Urea Nitrogen 20 mg/dL (7-18); Bicarbonate 26 mmol/L (21-32); Bilirubin Total 0.3 mg/dL (0.2-1.0); Glucose Level 84 mg/dL (74-106); Potassium 4.4 mmol/L (3.5-5.1); Protein, Total 5.6 g/dL (6.4-8.2); Sodium Level 137 mmol/L (136-145)
[2018-04-14 06:14] LABS: Absolute Lymphocytes (CBC) 1.4 K/uL (0.7-4.9); Absolute Monocytes 1.3 K/uL (0.1-1.3); Absolute Neutrophil 10.8 K/uL (1.8-8.0); Basophils % 0.3 % (0-1.3); Eosinophils % 6.4 % (0-4.4); Hematocrit 26.7 % (39.6-49.0); Lymphocytes % 9.9 % (15.3-44.8); RBC Red Blood Cell Count 3.01 M/uL (4.33-5.43)
[2018-04-14] MEDS: ARFORMOTEROL TARTRATE 15 MCG/2 ML VIAL.NEB NEB SCH (08:00)
[2018-04-14] MEDS: ENOXAPARIN 30 MG/0.3 ML SQ SCH (08:06)
[2018-04-14] MEDS: FAMOTIDINE 20 MG TAB PO SCH (08:06)
[2018-04-14] MEDS: levoFLOXacin 500 MG TAB PO SCH (08:06)
[2018-04-14] MEDS: GABAPENTIN 100 MG CAP PO SCH ×2 (08:06→13:26)
--- NOTE | 2018-04-14 08:19 | P.PN ---
Subjective Date of Service: 04/14/18 Primary Care Provider: Dr. PINEDA Chief Complaint: Elevated white count pneumonia Patient is doing much better oxygenation satisfactory wants to go home feels a little weak Review of Systems Unremarkable Physical Examination - Vital Signs Temperature: 98.5 F Blood Pressure: 90/49 Pulse: 83 Respirations: 16 Pulse Ox (%): 95 - Physical Exam General: Alert, Oriented x3, Cooperative Respiratory: Clear to auscultation bilaterally Cardiovascular: No edema, Regular rate/rhythm - Studies Medications List Reviewed: Yes Assessment & Plan - Problems (Diagnosis) (1) Pneumonia Onset Date: 04/07/18 Current Visit: Yes Status: Acute Plan: Patient is doing well he has improved vital signs all stable cortisol level is normal count is declining stool culture is probably not significant the discharge home follow with me in 2 weeks Qualifiers: Pneumonia type: due to unspecified organism Laterality: bilateral Physician Review Additional Text: Impression: Septic shock secondary to bilateral pneumonia Acute on chronic respiratory failure secondary to bilateral pneumonia and COPD exacerbation Atrial fibrillation with RVR Acute renal injury likely secondary to ATN with dehydration Crohns disease with C. Diff colitis and stool culture positive for Staph aureus HTN Anemia likely of chronic disease with iron deficiency Plan: Septic shock secondary to bilateral pneumonia: Patient improved. Patient off oxygen. Antibiotics to be adjusted. Blood cultures negative. Will ambulate with physical therapy. Anticipate discharge in the next 24-48 hr. Will determine if the patient will require skilled placement. Will continue with IV fluids. Monitor blood pressure closely. Acute on chronic respiratory failure secondary to bilateral pneumonia and COPD exacerbation: Continue to wean off oxygen. Will continue with antibiotic therapy and COPD medication. Atrial fibrillation with RVR: Patient now in sinus rhythm. Will monitor closely. Acute renal injury likely secondary to ATN with dehydration: This has improved with IV fluids. Will continue monitor closely. Crohns disease with C. Diff colitis and stool culture positive for Staph aureus : Continue with antibiotic therapy but will adjust medication. HTN: Blood pressure medication on hold. Anemia likely of chronic disease with iron deficiency: Will start iron supplementation. Will monitor closely.
[2018-04-14] MEDS ORDERED: FERROUS SULFATE 325 MG TAB PO SCH (09:00)
--- NOTE | 2018-04-14 11:33 | P.DS ---
Admission Date: 04/06/18 Discharge Date: 04/14/18 Primary Care Provider: Dr. PINEDA Disposition: ROUTINE DISCHARGE Discharge Condition: GOOD Reason for Admission: Elevated white count pneumonia Consultations: Pulmonary-Dr. Nath Nephrology-Dr. Suggs Cardiology-Dr. Harrell Procedures: CT head: COMPARISON: HEAD BRAIN W O CONTRAST dated 09/27/2012 TECHNIQUE: All CT scans are performed using dose optimization technique as appropriate and may include automated exposure control or mA/KV adjustment according to patient size. FINDINGS: No intracranial hemorrhage, hydrocephalus or extra-axial fluid collection.No areas of brain edema or evidence of midline shift. Mild multifocal paranasal sinus thickening is seen. The calvarium is intact. IMPRESSION: No acute intracranial abnormality. CXR: COMPARISON: Chest Pa And Lat (2 Views) dated 07/07/2015; CHEST SINGLE VIEW dated 09/27/2012; CHEST SINGLE VIEW dated 09/12/2011; ABDOMEN ACUTE SERIES dated FINDINGS: Portable technique limits examination quality. Extensive bilateral pulmonary opacities are noted likely representing multifocal pneumonia. The heart is normal in size. No displaced fractures. IMPRESSION: Extensive multifocal pneumonia likely present. Follow up CXR: COMPARISON: Chest Pa And Lat (2 Views) dated 04/10/2018; Chest Single View dated 04/09/2018; Chest Single View dated 04/08/2018; Chest Single View dated 04/08 FINDINGS: Since the 04/10/2018, there has been mild improvement in bilateral pulmonary opacities. The heart is normal in size. No displaced fractures. Right- sided venous catheter has tip in the SVC. IMPRESSION: Mild improvement in lung aeration since comparative study. ECHO: EF-45% LEFT VENTRICULAR WALL MOTION: NORMAL. DOPPLER/COLOR FLOW: MILD MITRAL REGURGITATION. COMMENTS: MILDLY DEPRESSED LEFT VENTRICULAR EJECTION FRACTION. DILATED LEFT ATRIUM. MILD MITRAL REGURGITATION. Renal US: COMPARISON: No comparisons FINDINGS: Both kidneys are normal in size, shape and echotexture. The right kidney measures 12.5 x 6.0 x 5.7 cm. No hydronephrosis, focal mass or perinephric fluid. Small 14 x 9 mm cyst is present in the right kidney. The left kidney measures 12.3 x 5.9 x 5.4 cm. No hydronephrosis, focal mass or perinephric fluid. The urinary bladder is incompletely distended without gross abnormality seen. IMPRESSION: Unremarkable renal sonogram. Medical Problem List: Altered mental status secondary to Septic shock related to bilateral pneumonia, rhabdomyolysis, hypothermia Acute on chronic respiratory failure secondary to bilateral pneumonia and COPD exacerbation Atrial fibrillation with RVR, resolved likely transient due to septic shock Acute renal injury likely secondary to ATN with dehydration, inproved Crohns disease with C. Diff colitis and stool culture positive for Staph aureus HTN Anemia likely of chronic disease with iron deficiency Positive urine drug screen for benzodiazepine, methadone, amphetamines, THC GERD Chronic pain Anxiety Brief History of Present Illness: 62-year-old male presented to emergency room with altered mental status. Patient found to be hypothermic with septic shock. Patient admitted to ICU for treatment. Hospital Course: Patient presented with altered mental status changes. Patient found to have septic shock related to bilateral pneumonia, rhabdomyolysis, hypothermia and COPD exacerbation. During the course of his stay patient required ICU admission. Patient also had atrial fibrillation with RVR and acute renal injury also related to septic shock. His hospital stay was complicated and required consultation with pulmonology, nephrology and cardiology. During the course of his stay his condition improved. Renal ultrasound unremarkable. Echocardiogram shows ejection fraction 45%. Renal function now to baseline. Patient doing well off oxygen. At discharge patient will continue with Levaquin 500 mg daily for 7 days. Patient will continue with COPD medication including Dulera 2 puffs twice daily and Pro air 2 puffs 3 times a day as needed for shortness of breath. Patient will follow up with pulmonology in 1 week to follow up this hospitalization. Recommend to recheck chest x-ray in 2- 4 weeks to monitor resolution. Patient had transient atrial fibrillation related to septic shock. Patient seen by Cardiology. No need for chronic anti coagulation therapy at this time. No need for other medication. Patient may follow up with cardiology as an outpatient. Patient with acute renal injury secondary to septic shock. Renal ultrasound unremarkable. Autoimmune workup unremarkable. Hepatitis screen negative. Patient seen and evaluated by nephrology. Renal function back to baseline. Recommend to recheck lab-BMP in 1 week to follow up this hospitalization. This can be done by his PCP. Patient may follow up with nephrology as an outpatient to further monitor. Patient with history of Crohn disease. Patient had diarrhea. Patient found to have C diff colitis. Patient was started on treatment. Stool culture positive for Staph aureus is well. This was sensitive to vancomycin. At discharge she will continue with vancomycin 125 mg 4 times a day for 10 days. Patient may follow up with GI as an outpatient to further monitor. Patient may continue with his prior medication of Bentyl 10 mg 3 times a day as needed for GI spasm. Patient with chronic pain. Patient may continue with Turlock 3 times a day as needed for pain and gabapentin 500 mg 3 times a day. Recommend to follow up with pain management to further monitor. Patient was positive on urine drug screen for multiple meds including benzodiazepine, methadone, amphetamines and THC. Cessation address in detail. This can be further monitored by his PCP. Patient found to be anemic. Iron deficiency noted. At discharge he will continue with iron 325 mg 1 pill twice daily. Patient may benefit with GI evaluation as an outpatient to further monitor and address. Patient has GERD. Patient will continue with Pepcid 20 mg 1 pill twice daily. Patient should follow up with GI as an outpatient to further monitor. Patient with anxiety. Patient may continue with Ativan 0.5 mg 1 pill twice daily as needed for anxiety. This to be monitored closely by his PCP. Vital Signs/Physical Exam: Temp Pulse Resp BP Pulse Ox 98.5 F 83 16 90/49 L 95 04/14/18 08:19 04/14/18 08:19 04/14/18 08:19 04/14/18 08:19 04/14/18 08:19 General: Alert, In no apparent distress, Oriented x3, Cooperative HEENT: Atraumatic Neck: Supple Respiratory: Clear to auscultation bilaterally, Normal air movement Cardiovascular: Normal pulses, Regular rate/rhythm Gastrointestinal: Normal bowel sounds, Soft and benign, Non-distended, No tenderness, No masses, No rebound, No guarding Musculoskeletal: No erythema, No tenderness, No warmth Integumentary: No tenderness/swelling, No erythema, No warmth, No cyanosis Neurological: Normal speech, Normal strength at 5/5 x4 extr, Normal tone, Normal affect Laboratory Data at Discharge: WBC 14.6 K/uL (4.3-10.9) H 04/14/18 04:58 Hgb 8.8 g/dL (13.6-17.9) L 04/14/18 04:58 Hct 26.7 % (39.6-49.0) L 04/14/18 04:58 Plt Count 621 K/uL (152-406) H 04/14/18 04:58 PT 15.4 SECONDS (9.5-12.5) H 04/06/18 10:55 INR 1.30 04/06/18 10:55 Sodium 137 mmol/L (136-145) 04/14/18 04:58 Potassium 4.4 mmol/L (3.5-5.1) 04/14/18 04:58 BUN 20 mg/dL (7-18) H 04/14/18 04:58 Creatinine 0.66 mg/dL (0.55-1.3) 04/14/18 04:58 Glucose 84 mg/dL (74-106) 04/14/18 04:58 Uric Acid 8.6 mg/dL (3.5-7.2) H 04/07/18 05:11 Phosphorus 3.2 mg/dL (2.5-4.9) 04/11/18 04:20 Magnesium 2.0 mg/dL (1.8-2.4) 04/11/18 04:20 Total Bilirubin 0.3 mg/dL (0.2-1.0) 04/14/18 04:58 AST 9 U/L (15-37) L 04/14/18 04:58 ALT 12 U/L (12-78) 04/14/18 04:58 Alkaline Phosphatase 66 U/L (45-117) 04/14/18 04:58 Home Medications: Dicyclomine [Bentyl*] 10 mg PO TID 04/07/18 Gabapentin 500 mg PO TID 04/07/18 Hydrocodone Bit/Acetaminophen [Hydrocodon-Acetaminophn 10-325] 1 tab PO Q6H PRN 04/07/18 LORazepam [Ativan*] 0.5 mg PO BID PRN 04/07/18 Albuterol Sulfate [Proair Hfa] 2 puff IH TID PRN #1 hfa.aer.ad 04/14/18 Famotidine [Pepcid*] 20 mg PO BID #60 tab 04/14/18 Ferrous Sulfate [Ferrous Sulfate*] 325 mg PO BID #60 tab 04/14/18 Mometasone/Formoterol [Dulera 200 Mcg/5 Mcg Inhaler] 2 puff IH BID #1 inhaler Vancomycin Oral Soln [Vancocin HCl*] 2.5 ml PO Q6HR #1 bottle 04/14/18 levoFLOXacin [Levaquin*] 500 mg PO DAILY #7 tab 04/14/18 New Medications: Albuterol Sulfate [Proair Hfa] 2 puff IH TID PRN #1 hfa.aer.ad PRN Reason: Shortness Of Breath Famotidine [Pepcid*] 20 mg PO BID #60 tab Ferrous Sulfate [Ferrous Sulfate*] 325 mg PO BID #60 tab levoFLOXacin [Levaquin*] 500 mg PO DAILY #7 tab Mometasone/Formoterol [Dulera 200 Mcg/5 Mcg Inhaler] 2 puff IH BID #1 inhaler Vancomycin Oral Soln [Vancocin HCl*] 2.5 ml PO Q6HR #1 bottle Patient Discharge Instructions: 1. Patient will follow up with his PCP in 1 week to follow up this hospitalization. 2. Patient presented with altered mental status changes. Patient found to have septic shock related to bilateral pneumonia, rhabdomyolysis, hypothermia and COPD exacerbation. During the course of his stay patient required ICU admission. Patient also had atrial fibrillation with RVR and acute renal injury also related to septic shock. His hospital stay was complicated and required consultation with pulmonology, nephrology and cardiology. During the course of his stay his condition improved. Renal ultrasound unremarkable. Echocardiogram shows ejection fraction 45%. Renal function now to baseline. Patient doing well off oxygen. At discharge patient will continue with Levaquin 500 mg daily for 7 days. Patient will continue with COPD medication including Dulera 2 puffs twice daily and Pro air 2 puffs 3 times a day as needed for shortness of breath. Patient will follow up with pulmonology in 1 week to follow up this hospitalization. Recommend to recheck chest x-ray in 2-4 weeks to monitor resolution. 3. Patient had transient atrial fibrillation related to septic shock. Patient seen by Cardiology. No need for chronic anti coagulation therapy at this time. No need for other medication. Patient may follow up with cardiology as an outpatient. 4. Patient with acute renal injury secondary to septic shock. Renal ultrasound unremarkable. Autoimmune workup unremarkable. Hepatitis screen negative. Patient seen and evaluated by nephrology. Renal function back to baseline. Recommend to recheck lab-BMP in 1 week to follow up this hospitalization. This can be done by his PCP. Patient may follow up with nephrology as an outpatient to further monitor. 5. Patient with history of Crohn disease. Patient had diarrhea. Patient found to have C diff colitis. Patient was started on treatment. Stool culture positive for Staph aureus is well. This was sensitive to vancomycin. At discharge she will continue with vancomycin 125 mg 4 times a day for 10 days. Patient may follow up with GI as an outpatient to further monitor. Patient may continue with his prior medication of Bentyl 10 mg 3 times a day as needed for GI spasm. 6. Patient with chronic pain. Patient may continue with Turlock 3 times a day as needed for pain and gabapentin 500 mg 3 times a day. Recommend to follow up with pain management to further monitor. 7. Patient was positive on urine drug screen for multiple meds including benzodiazepine, methadone, amphetamines and THC. Cessation address in detail. This can be further monitored by his PCP. 8. Patient found to be anemic. Iron deficiency noted. At discharge he will continue with iron 325 mg 1 pill twice daily. Patient may benefit with GI evaluation as an outpatient to further monitor and address. 9. Patient has GERD. Patient will continue with Pepcid 20 mg 1 pill twice daily. Patient should follow up with GI as an outpatient to further monitor. 10. Patient with anxiety. Patient may continue with Ativan 0.5 mg 1 pill twice daily as needed for anxiety. This to be monitored closely by his PCP. Diet: AHA Activity: Ad alice Time spent managing pt's care (in minutes): 55
[2018-04-14 12:30] VITALS: BP 102/61; TEMP 98.8
--- NOTE | 2018-04-15 02:20 | PN ---
Date of Progress Note: 04/14/2018 Chief Complaint: Acute kidney injury. History Of Present Illness: Acute kidney injury, nonoliguric, in recovery phase. On admission, crea tinine was elevated up to 6.4. The patient was found to have acute kidney injury complicated by rhab domyolysis. He completed IV fluids. Primarily, he had IV normal saline to treat acute kidney injury and hypovolemia as well as rhabdomyolysis. Subsequently, he developed fluid overload and Lasix was started. The patient was found to have orthostatic hypotension and was resumed on normal saline. Th e patient is feeling better. Review of Systems: Denies fever, chills. Physical Examination: Lungs: Clear to auscultation bilaterally. Heart: S1, S2. Abdomen: Soft, benign. Extremities: No edema. Impression And Plan: 1.Acute kidney injury, in recovery phase. Renal function at baseline. 2.Hypovolemia, resolved. The patient received IV fluids with normal saline to treat orthostatic hyp otension and to treat hypovolemic condition. 3.Sepsis. The patient will continue antibiotics. 4.Orthostatic hypotension. IV fluids as needed. Adjust blood pressure medication. EB/MODL Voice ID: [id number] Report ID: [id number]
[2018-04-15 09:56] LABS: Scleroderma Antibody (Scl-70) <1.0 AI (<1.0)
== END 2018-04-14 13:55 | disposition home or self-care (01) | DRG 871 ==
LOC: ER 10:11 → ERHOLD 12:18 → UNDOADMIN 12:18 → ERHOLD 15:27 → 3RD-ICU 16:51 → 4TH 04-11 02:05
PROVIDERS: ADMIT Family Medicine; ATTEND Family Medicine
PROC: 5A2204Z Restoration of Cardiac Rhythm, Single (ICD-10-PCS; principal; 2018-04-06)
PROC: 02HV33Z Insertion of Infusion Device into Superior Vena Cava, Percutaneous Approach (ICD-10-PCS; 2018-04-06)
PROC: B548ZZA Ultrasonography of Superior Vena Cava, Guidance (ICD-10-PCS; 2018-04-06)
PROC: 5A09457 Assistance with Respiratory Ventilation, 24-96 Consecutive Hours, Continuous Positive Airway Pressure (ICD-10-PCS; 2018-04-06)
DX: A41.9 Sepsis, unspecified organism (principal); R65.21 Severe sepsis with septic shock; J96.21 Acute and chronic respiratory failure with hypoxia; N17.0 Acute kidney failure with tubular necrosis; J18.1 Lobar pneumonia, unspecified organism; G92 Toxic encephalopathy; J44.0 Chronic obstructive pulmonary disease with (acute) lower respiratory infection; J44.1 Chronic obstructive pulmonary disease with (acute) exacerbation; M62.82 Rhabdomyolysis; A04.72 Enterocolitis due to Clostridium difficile, not specified as recurrent; E87.2 Acidosis; K50.919 Crohn's disease, unspecified, with unspecified complications; E87.3 Alkalosis; E86.0 Dehydration; D63.8 Anemia in other chronic diseases classified elsewhere; E61.1 Iron deficiency; I10 Essential (primary) hypertension; F15.10 Other stimulant abuse, uncomplicated; F12.10 Cannabis abuse, uncomplicated; K21.9 Gastro-esophageal reflux disease without esophagitis; G89.29 Other chronic pain; F41.9 Anxiety disorder, unspecified; Z88.8 Allergy status to other drugs, medicaments and biological substances; F17.210 Nicotine dependence, cigarettes, uncomplicated; Z91.14 Patient's other noncompliance with medication regimen; E78.5 Hyperlipidemia, unspecified; E87.5 Hyperkalemia; E87.6 Hypokalemia; I48.0 Paroxysmal atrial fibrillation; I95.1 Orthostatic hypotension
CPT/HCPCS: 36415; 51702; 70450; 71045; 71046; 71250; 74176; 76770; 80048; 80053; 80074; 80076; 80202; 80307; 81003; 81015; 82043; 82533; 82550; 82553; 82570; 82805; 82962; 83520; 83540; 83605; 83735; 83880; 84100; 84145; 84156; 84165; 84443; 84466; 84484; 84550; 85025; 85610; 86021; 86038; 86147; 86160; 86225; 86235; 86317; 86335; 86430; 86704; 86706; 87040; 87045; 87046; 87070; 87077; 87081; 87086; 87088; 87177; 87186; 87205; 87209; 87389; 87493; 87522; 87804; 92960; 93005; 93306; 94640; 94660; 94667; 94668; 97162; 99285; G0008; J1650; J1720; J1940; J2250; J2543; J2920; J3010; J3370; J7030; J7060; J7512; J7605; Q2035

== ENCOUNTER 2024-11-17 20:36 | Emergency (ER) | payer OTHER ==
--- OUTSIDE RECORDS SUMMARY | 2024-11-17 20:44 | XMS REPORT | Continuity of Care Document ---
Author Name Unknown Address [address] [facility] [address] [place] [address] [facility] Address [address] [facility] 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 Role Phone PCP, PATIENT DOES NOT HAVE A Primary Care Physic anika Unavailable Belen Prater Attending Clinician Drake puga ProviderDorian Attending Clinician Nikole Gong Attending Clinician Unavailable Campaigns, Generic Provider Attending Clinician Unavailable TIANA CUEVAS Attending Clinician Abigail Tiana Martell MD Attending Clinician TIANA CUEVAS Admitting Clinician Abigail josep Payers Payer Name Policy Type Policy Number Effective Date Expirati on Date Source Problems Condition Name Condition Details Condition Category Status Onset Date Resolution Date Last Treatment Date Treating Clinician Comments Source Abdominal pain, left lower quadrant Abdominal pain, left lower quadrant Disease Active 04-07 00:00: 00 [facility] Family history of malignant neoplasm of gastrointe stinal tract Family history of malignant neoplasm of gastrointe stinal tract Disease Active 11-13 00:00: 00 [facility] Loss of weight Loss of weight Disease Active 11-13 00:00: 00 [facility] Dizziness, nonspecifi c Dizziness, nonspecifi c Disease Active 11-13 00:00: 00 [facility] Anal fistula Anal fistula Disease Active 2010-0314 00:00: 00 [facility] Crohn's disease Crohn's disease Disease Active 2010-03 00:00: 00 [facility] 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 Disease Active 2010-03 00:00: 00 [facility] Allergies, Adverse Reactions, Alerts Allergy Name Allergy Type Status Severity Reaction(s) Onset Date Inactive Date Treating Clinician Comments Source Adhesive Propensi ty to adverse reaction s Active Unknown - See comments 05-12 00:00: 00 [facility] Sulfadia zine Propensi ty to adverse reaction s Active Nausea and/or Vomiting 05-12 00:00: 00 [facility] ADHESIVE Drug Class Active Unknown-Cmnt 05-12 00:00: 00 [facility] SULFADIA ZINE DRUG INGREDI Active N/V 05-12 00:00: 00 [facility] Azathiop rine Propensi ty to adverse reaction s Active Nausea and/or Vomiting 2012-03 00:00: 00 [facility] Ketorola c Propensi ty to adverse reaction s Active Nausea and/or Vomiting 2012-03 00:00: 00 [facility] AZATHIOP RINE DRUG INGREDI Active Diarrhea 2012-03 00:00: 00 [facility] KETOROLA C DRUG INGREDI Active N/V 2012-03 00:00: 00 [facility] Social History Social Habit Start Date Stop Date Quantity Comments Source History of tobacco use Cigarette Smoker [facility] 2024-05-22 07:08:00 2024-05-22 07:08:00 Male (finding) [facility] History of Social function 2018-10-02 00:00:00 2018-10-02 00:00:00 [facility] Alcoholic beverage intake 2018-05-15 00:00:00 2018-05-15 00:00:00 Current drinker of alcohol (finding) [facility] Cigarettes smoked current (pack per day) - Reported 2018-05-12 00:00:00 2018-05-12 00:00:00 [facility] Cigarette pack-years 2018-05-12 00:00:00 2018-05-12 00:00:00 [facility] Tobacco use and exposure 2018-05-12 00:00:00 2018-05-12 00:00:00 Smokeless tobacco non-user [facility] Sex Assigned At 1956-08-13 00:00:00 1956-08-13 00:00:[address] [facility] Smoking Status Start Date Stop Date Source Unknown if ever smoked [facility] Smokes tobacco daily 2018-05-12 00:00:00 [facility] Medications Ordered Medication Name Filled Medication Name Start Date Stop Date Current Medication? Ordering Clinician Indication Dosage Frequency Signature (SIG) Comments Components Source iopamidol (ISOVUE 370-500 mL) injection 84 mL 04-08 04:15: 00 04-08 04:15 :00 No [id number] 84mL 84 mL, Intravenou s, ONCE, 1 dose, On Sat04/07/24 at 2215, Routine [facility] morpHINE (4 mg/mL) injection 4 mg 04-08 01:45: 00 04-08 02:15 :00 No 4mg 4 mg, Slow IV Push, ONCE, 1 dose, On Sat04/07/24 at 1945, STAT [facility] ondansetron (ZOFRAN (PF)) injection 4 mg 04-08 01:45: 00 04-08 02:17 :00 No 4mg 4 mg, Slow IV Push, ONCE, 1 dose, On Sat04/07/24 at 1945, Administer over 2-5 Minutes, 2 mL [facility] famotidine 20 mg tablet 04-07 22:19: 01 Yes 20mg Take 20 mg by mouth 2 (two) times daily. [facility] levoFLOXaci n 750 mg tablet 04-07 00:00: 00 Yes [id number] 750mg Take 1 tablet by mouth every 24 (twenty-fo ur) hours. [facility] metroNIDAZO LE 500 mg tablet 04-07 00:00: 00 Yes [id number] 500mg Take 1 tablet by mouth every 8 (eight) hours. [facility] predniSONE 20 mg tablet 04-07 00:00: 00 Yes [id number] 60mg Take 3 tablets by mouth every morning. [facility] sucralfate 1 gram tablet 04-07 00:00: 00 Yes [id number] 1g Take 1 tablet by mouth before meals and at bedtime. [facility] famotidine 20 mg tablet 04-07 00:00: 00 Yes [id number] 20mg Take 1 tablet by mouth in the morning and 1 tablet in the evening. [facility] dicyclomine 20 mg tablet 04-07 00:00: 00 Yes [id number] 20mg Take 1 tablet by mouth 4 (four) times daily. [facility] lisinopril (PRINIVIL,Z ESTRIL) 20 mg tablet 05-14 12:19: 03 Yes [id number] 20mg Take 20 mg by mouth daily. [facility] Mometasone- Formoterol (DULERA) 200-5 mcg/actuati on inhaler 05-14 12:19: 03 Yes Inhale. [facility] ferrous sulfate 325 mg (65 mg iron) tablet 05-14 12:19: 03 Yes 325mg Take 325 mg by mouth 3 (three) times daily with meals. [facility] gabapentin 300 mg capsule 05-14 12:19: 03 Yes 300mg Take 300 mg by mouth 3 (three) times daily. [facility] LORazepam 0.5 mg tablet 05-14 12:19: 03 Yes .5mg Take 0.5 mg by mouth 2 (two) times daily. [facility] naproxen 500 mg EC tablet 05-14 12:19: 03 Yes 500mg Take 500 mg by mouth 2 (two) times daily with meals. [facility] albuterol 90 mcg/actuati on inhaler 05-14 12:19: 03 Yes 2{puff} Inhale 2 Puffs as needed for Wheezing or Shortness of Breath (as neeeded). [facility] dicyclomine 20 mg tablet 11-01 00:00: 00 Yes 20mg Take 1 tablet by mouth 4 (four) times daily. [facility] esomeprazol e (NEXIUM) 40 mg capsule 2015-03 00:00: 00 Yes 40mg Take 1 capsule by mouth daily with breakfast. [facility] sulfaSALAzi ne (AZULFIDINE ) 500 mg tablet 05-02 00:00: 00 Yes TAKE TWO TABLETS BY MOUTH 4 TIMES DAILY [facility] esomeprazol e (NEXIUM) 40 mg capsule 05-02 00:00: 00 Yes [id number] 40mg Take 1 Cap by mouth daily with breakfast. [facility] HYDROcodone -acetaminop hen (NORCO 5) 5-325 mg tablet 10-30 00:00: 00 Yes [id number] 1{tbl} Take 1 Tab by mouth every 4 (four) hours as needed for Pain (scale 7-10). [facility] proMETHazin e (PHENERGAN) 25 mg tablet 2012-03 00:00: 00 Yes 25mg Take 1 Tab by mouth every 6 (six) hours as needed for Nausea and Vomiting (N/V). [facility] psyllium (METAMUCIL) powder 08-04 00:00: 00 Yes [id number] 1{capsu le} Take 1 Cap by mouth daily. [facility] simethicone (MYLICON) 80 mg chewable tablet 2010-03 00:00: 00 Yes 80mg Take 1 Tab by mouth after meals and at bedtime. [facility] Immunizations Ordered Immunization Name Filled Immunization Name Date Status Comments Source Influenza Virus Vaccine 2010-12-29 00:00:00 Completed [facility] Vital Signs Vital Name Observation Time Observation Value Comments Sheyla banegas Systolic blood pressure 2024-04-08 04:00:00 144 mm[Hg] [facility] Diastolic blood pressure 2024-04-08 04:00:00 70 mm[Hg] [facility] Heart rate 2024-04-08 04:00:00 67 /min [facility] Body temperature 2024-04-08 04:00:00 36.56 Keila [facility] Respiratory rate 2024-04-08 04:00:00 20 /min [facility] Oxygen saturation in Arterial blood by Pulse oximetry 2024-04-08 04:00:00 100 /min [facility] Body height 2024-04-08 01:38:00 182.9 cm [facility] Body weight 2024-04-08 01:38:00 68.04 kg [facility] BMI 2024-04-08 01:38:00 20.34 kg/m2 [facility] Procedures Procedure Date / Time Performed Performing Clinicia n Source CT Abdomen Pelvis W Con 2024-05-27 22:36:00 [facility] CT Abdomen Pelvis W Con 2024-05-27 21:36:00 [facility] SARS-CoV-2 & FLU Antigen (Rapid) 2024-05-02 00:00:00 [facility] SARS-CoV-2 & FLU Antigen (Rapid) 2024-05-02 00:00:00 [facility] CT ABDOMEN PELVIS W CONTRAST 2024-04-08 03:16:28 Tiana Cuevas [facility] FENTANYL (IMMUNOASSAY) 2024-04-08 02:34:00 Tiana Wright [facility] URINALYSIS 2024-04-08 02:34:00 Fariha Cuevas [facility] CREATINE KINASE 2024-04-08 02:11:00 Fariha Cuevas [facility] LIPASE 2024-04-08 02:11:00 Fariha Cuevas [facility] TROPONIN I 2024-04-08 02:11:00 Fariha Cuevas [facility] COMP. METABOLIC PANEL ([id number]) 2024-04-08 02:11:00 Tiana Cuevas [facility] CBC WITHOUT DIFF 2024-04-08 02:11:00 Tiana Cuevas [facility] INFLUENZA A/B RSV COVID NAAT 2024-04-08 02:11:00 Tiana Cuevas [facility] N-TERMINAL PRO-BNP 2024-04-08 02:11:00 Tiana Cuevas [facility] Encounters Start Date/Time End Date/Time Encounter Type Admission Type Attending [facility] Care Department Encounter ID Source 2024-05-27 21:07:00 2024-05-28 00:35:00 Emergency ER Belen Prater [facility] [id number] [facility] 2024-05-02 13:23:00 2024-05-02 14:27:00 Emergency ER Nikole Ramos [facility] [id number] [facility] 2024-05-02 13:23:00 2024-05-02 14:27:00 Departed Emergency [id number] [facility] [id number] 24 [facility] 2024-04-15 00:00:00 2024-04-15 11:24:00 Letter (Out) Campaigns, Generic Provider Campaigns, Generic Provider [facility] [id number] [facility] 2024-04-07 19:44:00 2024-04-07 22:48:00 Emergency X TIANA CUEVAS [facility] ERT [id number] [facility] 2024-04-07 19:44:00 2024-04-07 22:48:00 Emergency Tiana Cuevas [facility] [id number] [facility] Results Test Description Test Time Test Comments Results Resul t Comments Source CT Abdomen Pelvis W Con 2024-05-27 23:41:00 [facility]: REBECCA MENEZES : 08/13/1956 Sex: M I [facility] Pt Name: REBECCA MENEZES [address] Phys: [place] [address] : 08/13/1956 Age: 67 SEX:M [phone] Exam Date: 05/27/24 Status: REG ER Acct: [id number] Loc: ERS Pt Unit #: [id number] Report #: [id number] CC: ED TEMP PROVIDER BELEN PRATER MD PULSECHECKSJX:[id number] CAT SCAN REPORT Report Status: Signed Order # Category/Exam [id number] CT/CT Abdomen Pelvis W Con ([id number]): . Results EXAM:CT Abdomen Pelvis W Con HISTORY: Pain, Crohn's COMPARISON: None TECHNIQUE: Axial CT imaging from lung bases through pubic symphysis with contrast. Multiplanar reformatted imaging obtained. FINDINGS: Pulmonary fibrotic changes in the lung bases without definite cystic honeycomb formation. Normal caliber abdominal aorta. Liver, gallbladder, pancreas, spleen, adrenal glands without appreciable acute abnormality. Normal renal enhancement. No hydroureteronephrosis . Distended bladder. Mildly enlarged prostate. Normal caliber stomach. Some borderline dilated loops of small bowel in the left upper quadrant without focal point of transition. Some central abdomen nondistended versus mildly thickened loops of small bowel. Mild thickening of the rectum. Moderate stool burden in the rectosigmoid colon and right colon no evidence of acute appendicitis. No appreciable inflammatory changes at the terminal ileum. No pneumoperitoneum or ascites. No appreciable acute osseous abnormality. IMPRESSION: Mild thickening versus nondistention of the rectum. Consider proctitis. Moderate stool burden throughout the colon favoring mild constipation. Areas of nondistention of the small bowel versus mild thickening without significant surrounding inflammatory changes or definite small bowel obstruction. May suggest mild uncomplicated enteritis. Pulmonary fibrotic changes in the lung bases. Reported By: Dusty Tinoco MD Electronically Signed Date/Time: 05/27/24 2334 Technologist: MARIVEL Dictated Date/Time: 05/27/24 7806 Transcribed Date/Time: [id number] 23:10:00* Test Item Value Reference Range Interpretation Comme nts Chemistry (test code = LIP) 17 U/L 8-78 N [id number] 22:44:00* Test Item Value Reference Range Interpretation Comme nts Hematology (test code = WBCT) 9.20 10x3/uL 4.8-10.8 N Hematology (test code = RBCT) 3.39 mill/uL 4.70-6.10 L Hematology (test code = HGBT) 9.5 g/dL 14.0-18.0 L Hematology (test code = HCTT) 30.6 % 42.0-52.0 L Hematology (test code = MCV) 90.3 fL 78.0-98.0 N Hematology (test code = MCH) 28.0 pg 27.0-31.0 N Hematology (test code = MCHC) 31.0 g/dL 32.0-36.0 L Hematology (test code = RDW) 15.5 % 11.5-14.5 H Hematology (test code = PLTT) 424 10x3/uL 130-400 H Hematology (test code = MPV) 8.6 fL 7.4-10.4 N Hematology (test code = %NEUT) 69.7 % 42.0-75.0 N Hematology (test code = %LYMPH) 16.7 % 21.0-51.0 L Hematology (test code = %MONO) 9.0 % 0.0-10.0 N Hematology (test code = %EOS) 3.8 % 0.0-10.0 N Hematology (test code = %BASO) 0.4 % 0.0-1.0 N Hematology (test code = %IG) 0.4 % 0-5 N Hematology (test code = %NRBC) 0.0 % 0.0-0.0 N Hematology (test code = NEUT#) 6.40 10x3/uL 1.40-6.50 N Hematology (test code = LYMPH#XN) 1.50 10x3/uL 1.20-3.40 N Hematology (test code = MONO#) 0.80 10x3/uL 0.11-0.59 H Hematology (test code = EOS#) 0.40 10x3/uL 0.0-0.7 N Hematology (test code = BASO#) 0.04 10x3/uL 0.0-0.2 N Hematology (test code = IG#) 0.04 10x3/uL 0.00-0.50 N Hematology (test code = NRBC#) Less than 0.01 10x3/uL None Seen SARS-CoV-2 + Flu A B [id number] 14:01:00* Test Item Value Reference Range Interpretation Comme nts SARS-CoV-2 + Flu A B ANTIGEN (test code = XBSV7AK) The [employer] Veritor System for Rapid Detection of SARS-CoV-2 SARS-CoV-2 + Flu A B ANTIGEN (test code = MCVE4QF1) management decisions. SARS-CoV-2 + Flu A B ANTIGEN (test code = VHOI6RN3) [id number] N SARS-CoV-2 + Flu A B ANTIGEN (test code = KFQW4US2) N N CT Abdomen pelvis w [id number] 04:00:32Ordering physician: TIANA CUEVAS Indication: Left upper quadrant abdominal pain COMPARISON: None TECHNIQUE: Axial images of the abdomen and pelvis were performed followingadministration ofintravenous contrast material. Images were reformatted inthe coronal and sagittal plane. CT scan was performed according to ALARA(as low as reasonably achievable) policy. FINDINGS: There is peripheral honeycombing in the lung bases. The liver,gallbladder, spleen, adrenal glands and pancreas are within normal limits.The kidneys are normal in appearance bilaterally without hydronephrosis. Noabdominal aortic aneurysm or dissection is appreciated. There is thickeningof the proximal gastric wall andfolds. There is an apparent fluid densityfocus in the anterior gastric wall (series 2, image 26). There is noabdominal aortic aneurysm or dissection. There is no free fluid in the pelvis. There is nobowel obstruction,widespread diverticulosis or acute diverticulitis. There is moderate stoolthroughout the colon. The appendix is identified and within normal limits. Bone windows through the abdomenand pelvis demonstrate no osseousdestructive lesion.[facility] Troponin [id number] 02:49:18* Test Item Value Reference Range Interpretation Comme nts TROPONIN I (test code = 2614809953) <=0.034 AMALIA (test code = AMALIA) Reference (Normal) Range (defined by the 99th percentile reference limit): <= 0.034 ng/mL Note: Cardiac troponin begins to rise 3-4 hours after the onset of ischemia. Repeat in 4-6 hours if the sample was drawn within 3-4 hours of the onset of the symptom and found normal. Diagnosis of myocardial injury is made with acute changes in cTn concentrations with at least one serial sample above the 99th percentile upper reference limit (URL), taken together with the patient's clinical presentation. Biotin has been reported to cause a negative bias, interpret results relative to patient's use of biotin. Lab Interpretation (test code = 30914-1) Normal [facility] [id number] 02:47:02* Test Item Value Reference Range Interpretation Comme nts NT-proBNP (test code = 67884-2) 562 pg/mL <=125 AMALIA (test code = AMALIA) Result Indeterminate-Consid er causes of NT-proBNP elevation other than Heart failure such as acute coronary syndrome, pulmonary embolism, pulmonary hypertension, sepsis, stroke, and renal dysfunction. Lab Interpretation (test code = 37795-6) Abnormal [facility] (39830)2024-04-08 02:38:57* Test Item Value Reference Range Interpretation Comme nts NA (test code = 5048052047) 137 mmol/L 135-145 K (test code = 7901446450) 4.3 mmol/L 3.5-5.0 CL (test code = 4381963847) 102 mmol/L 98-108 CO2 TOTAL (test code = 6929385250) 28 mmol/L 23-31 AGAP (test code = 7939228483) 7 2-16 BUN (test code = 9659794995) 21 mg/dL 7-23 GLUCOSE (test code = 1989273856) 79 mg/dL 70-110 CREATININE (test code = 2160-0) 1.19 mg/dL 0.60-1.25 TOTAL BILI (test code = 0252803495) 0.3 mg/dL 0.1-1.1 CALCIUM (test code = 0209087145) 9.3 mg/dL 8.6-10.6 T PROTEIN (test code = 0627001308) 7.4 g/dL 6.3-8.2 ALBUMIN (test code = 2723586239) 4.4 g/dL 3.5-5.0 ALK PHOS (test code = 1686940321) 95 U/L 34-122 ALTv (test code = 1742-6) 17 U/L 5-50 AST(SGOT) (test code = 5484199181) 31 U/L 13-40 eGFR (test code = 32618-1) 67.0 mL/min/1.73m2 CKD-EPI eGFR (20 21). Assuming creatinine has been stable day-to-day for at least three months, the eGFR indicates Category G2 (60 - 89 mL/min/1.73 m2) [facility] 02:37:36* Test Item Value Reference Range Interpretation Comme nts LIPASE (test code = 5630958723) 58 U/L 0-220 Lab Interpretation (test cod e = 05318-0) Normal [facility] Center[facility]ine [id number] 02:37:21* Test Item Value Reference Range Interpretation Comme nts CK (test code = 2574052808) 366 U/L 33-194 H Lab Interpretation (test cod e = 53146-3) Abnormal [facility] CenterCbc without [id number] 02:29:16* Test Item Value Reference Range Interpretation Comme nts WBC (test code = 6690-2) 8.96 4.20-10.70 RBC (test code = 789-8) 3.82 4.26-5.52 L HGB (test code = 718-7) 11.0 g/dL 12.2-16.4 L HCT (test code = 4544-3) 34.9 % 38.4-49.3 L MCH (test code = 785-6) 28.8 pg 26.1-32.7 MCV (test code = 787-2) 91.4 fL 81.7-95.6 MCHC (test code = 786-4) 31.5 g/dL 31.2-35.0 PLT (test code = 777-3) 310 150-328 MPV (test code = 75936-6) 9.6 fL 9.8-13.0 L RDW-CV (test code = 788-0) 13.6 % 12.1-15.4 RDW-SD (test code = 42690-0) 45.9 fL 38.5-51.6 NRBC x10^3 (test code = 0008735200) See_Comment [Automated MashWorxa ge] The system which generated this result transmitted reference range: 10*3/?L. The reference range was not used to interpret this result as normal/abnormal. NRBC/100 WBC (test code = 2635939124) 0.0 0.0-10.0 IPF % (test code = 7527191259) Lab Interpretation (test code = 33376-4) Abnormal [facility] Notes Date/Time Note Provider Source 2024-04-07 22:27:08 Pt given printed and verbal discharge instructions regarding edema, encouraged hydration, Prescriptions provided Discussed antibiotic therapy and to take until all completed unless adverse reaction occurs - if occurs, discontinue medication and follow up with pcp/seek medical attention Pt verbalized understanding of instructions, pt awake alert oriented, resp reg unlabored, skin w/d, color appropriate for race, moves all ext well,pt encouraged to follow up with pcp. Advised to seek medical attention for new/prolonged/worsening of symptoms. No adverse reaction to meds given in ER noted upon discharge PIV d'cd, dressing to site, catheter in tact. Awake, alert oriented, resp reg unlabored, skin w/d, pt leaving amb with steady gait, in no apparent distress, T TECHNICIAN Sherron Bone RN [facility] 2024-04-07 19:35:18 Pt arrives ambulatory to ED c/o joint pain, lower extremity swelling and increased urination that started yesterday. T TECHNICIAN Renetta Saleh RN [facility]
--- NOTE | 2024-11-17 21:16 | RAD REPORT ---
Exam:Ankle Left 3 View HISTORY: left ankle pain FINDINGS: No fracture or dislocation is seen
--- NOTE | 2024-11-17 21:58 | EDPHYS ---
Physician Documentation [facility] Name: Robby Springer Age: 69 yrs Sex: Male : 1955 Arrival Date: 11/17/2024 Time: 20:36 Bed 14 Private MD: ED Physician Sina Luke HPI: 11/17 21:56 This 69 yrs old Male presents to ER via Ambulatory with complaints of Ankle kb Injury. 21:56 Patient is a 69-year-old male who presents for left ankle pain that started just prior kb to arrival. States he was walking on the sidewalk and twisted his ankle on the cracked cement. Denies any other injury or trauma.. Historical: - Allergies: 20:57 Imuran; me1 20:57 Toradol; me1 - PMHx: 20:57 chron's; Enlarged Heart; GERD; Hypertension; Hypercholesterolemia; me1 - PSHx: 20:57 rectal fistula repair; me1 - Immunization history:: Adult Immunizations up to date. - Infectious Disease History:: Denies. - Social history:: Smoking status: Patient reports the use of cigarette tobacco products, smokes one-half pack cigarettes per day. ROS: 21:56 Constitutional: As per HPI kb Exam: 21:56 Constitutional: This is a well developed, well nourished patient who is awake, alert, kb and in no acute distress. Head/Face: Normocephalic, atraumatic. ENT: Moist Mucous membranes Cardiovascular: Regular rate Respiratory: Respirations even and unlabored. No increased work of breathing. Talking in full sentences Skin: Warm, dry with normal turgor. Normal color. Neuro: Awake and alert, GCS 15, oriented to person, place, time, and situation. 21:56 Musculoskeletal/extremity: Extremities: grossly normal except: noted in the left lateral ankle: pain, tenderness, ROM: intact in all extremities, Circulation is intact in all extremities. Sensation intact. Weight bearing: can bear weight with assistance only, Vital Signs: 20:56 BP 136 / 83; Pulse 98; Resp 17; Temp 97.5; Pulse Ox 97% ; Weight 67.13 kg; Height 6 ft. me1 1 in. ; Pain 6/10; 21:53 BP 132 / 80; Pulse 78; Resp 18; Pulse Ox 99% ; kt5 20:56 Body Mass Index 19.53 (67.13 kg, 185.42 cm) me1 20:56 Pain Scale: Adult me1 MDM: 20:46 Medical Screening Exam initiated kb 21:57 Differential diagnosis: fracture, sprain, Dislocation. Data reviewed: vital signs, kb nurses notes. Independent interpretation of the following test(s) in the Emergency Department X-Ray: My interpretation is No fracture. Counseling: I had a detailed discussion with the patient and/or guardian regarding the historical points, exam findings, and any diagnostic results supporting the discharge/admit diagnosis, radiology results, the need for outpatient follow up, a family practitioner, to return to the emergency department if symptoms worsen or persist or if there are any questions or concerns that arise at home. 11/17 20:51 Order name: Ankle Left 3 View XRAY; Complete Time: 21:18 kb 11/17 21:46 Order name: Ian Wrap; Complete Time: 22:03 kb Administered Medications: No medications were administered Disposition: 11/18 06:05 I reviewed the patient's care provided by Advanced Practice Provider \T\ agree w/ the tw7 diagnosis \T\ care plan. I personally saw the pt \T\ performed a substantive portion of the visit, incldng all aspects of the (History/Exam/Medical Decision Making). Disposition Summary: 11/17/24 21:58 Discharge Ordered Notes: Location: Home kb Condition: Stable kb Diagnosis - Pain in left ankle and joints of left foot kb Followup: kb - With: Emergency Department - When: As needed - Reason: Worsening of condition Followup: kb - With: Private Physician - When: 2 - 3 days - Reason: Recheck today's complaints, Continuance of care, Re-evaluation by your physician Discharge Instructions: - Discharge Summary Sheet kb - Musculoskeletal Pain kb - Ankle Sprain, [id number] kb Forms: - Medication Reconciliation Form kb - Antibiotic Education kb - Prescription Opioid Use kb - Patient Portal Instructions kb - Leadership Thank You Letter kb Signatures: Dispatcher [employer] Franchesca Yoder, JUSTYN-C JUSTYN-Erica Sam RN RN me1 Sina Luke MD MD tw7 Corrections: (The following items were deleted from the chart) 11/17 20:51 20:51 Ankle Left 3 View+RAD.RAD.BRZ ordered. EDMS EDMS
--- NOTE | 2024-11-17 21:58 | ER ---
Nurse's Notes [facility] Name: Robby Springer Age: 69 yrs Sex: Male : 1955 Arrival Date: 11/17/2024 Time: 20:36 Bed 14 Private MD: Diagnosis: Pain in left ankle and joints of left foot Presentation: 11/17 20:56 Chief complaint: Patient states: turned left ankle just station captain. Pain level 6/10. me1 Coronavirus screen: Vaccine status: Patient reports being unvaccinated. Ebola Screen: No symptoms or risks identified at this time. Initial Sepsis Screen: Does the patient meet any 2 criteria? HR > 90 bpm. Does the patient have a suspected source of infection? No. Patient's initial sepsis screen is negative. Risk Assessment: Do you want to hurt yourself or someone else? Patient reports no desire to harm self or others. Onset of symptoms was November 17, 2024 at 19:30. 20:56 Method Of Arrival: Ambulatory az1 20:56 Acuity: MELIA 4 me1 Historical: - Allergies: 20:57 Imuran; me1 20:57 Toradol; me1 - PMHx: 20:57 chron's; Enlarged Heart; GERD; Hypertension; Hypercholesterolemia; me1 - PSHx: 20:57 rectal fistula repair; me1 - Immunization history:: Adult Immunizations up to date. - Infectious Disease History:: Denies. - Social history:: Smoking status: Patient reports the use of cigarette tobacco products, smokes one-half pack cigarettes per day. Screenin:03 [facility] ED Fall Risk Assessment (Adult) History of falling in the last 3 months, kt5 including since admission Yes- single mechanical fall (1 pt) Confusion or Disorientation No (0 pts) Intoxicated or Sedated No (0 pts) Impaired Gait No (0 pts) Mobility Assist Device Used No (0 pt) Altered Elimination No (0 pt) Score/Fall Risk Level 0 - 2 = Low Risk. Abuse screen: Denies threats or abuse. Denies injuries from another. Nutritional screening: No deficits noted. Tuberculosis screening: No symptoms or risk factors identified. Assessment: 21:03 General: Appears in no apparent distress. unkempt, Behavior is calm, cooperative, kt5 appropriate for age, tech at bs for pxr. Pain: Complains of pain in anterior aspect of left ankle Pain does not radiate. Pain currently is 5 out of 10 on a pain scale. Quality of pain is described as sharp, Pain began suddenly. Neuro: No deficits noted. Acevedo Agitation-Sedation Scale (RASS): 0 - Alert and Calm Level of Consciousness is awake, alert, obeys commands, Oriented to person, place, time, situation. Cardiovascular: No deficits noted. Reports None Heart tones S1 S2 present Capillary refill < 3 seconds Clubbing of nail beds is absent JVD is absent Pulses are all present. Edema is absent. Respiratory: No deficits noted. Airway is patent Trachea midline Respiratory effort is even, unlabored, Respiratory pattern is regular, symmetrical. GI: No deficits noted. No signs and/or symptoms were reported involving the gastrointestinal system. Abdomen is flat, non-distended, Bowel sounds present X 4 quads. Abd is soft and non tender X 4 quads. : No deficits noted. No signs and/or symptoms were reported regarding the genitourinary system. EENT: No deficits noted. No signs and/or symptoms were reported regarding the EENT system. Derm: No deficits noted. No signs and/or symptoms reported regarding the dermatologic system. Musculoskeletal: Range of motion: limited in left ankle Tenderness present in anterior aspect of left ankle Reports pain in anterior aspect of left ankle pt here s/p trip and fall "i think i twisted my ankle", here with left ankle tenderness, ppp, cms intact, full rom with discomfort, pt denies loc, denies blood thinners. 21:33 Reassessment: Patient appears in no apparent distress at this time. No changes from kt5 previously documented assessment. Patient is alert, oriented x 3, equal unlabored respirations, skin warm/dry/pink. Patient denies pain at this time. Patient states feeling better. Patient states symptoms have improved. 21:53 Reassessment: Patient appears in no apparent distress at this time. No changes from kt5 previously documented assessment. Patient is alert, oriented x 3, equal unlabored respirations, skin warm/dry/pink. Patient denies pain at this time. Patient states feeling better. Patient states symptoms have improved. Vital Signs: 20:56 BP 136 / 83; Pulse 98; Resp 17; Temp 97.5; Pulse Ox 97% ; Weight 67.13 kg; Height 6 ft. me1 1 in. ; Pain 6/10; 21:53 BP 132 / 80; Pulse 78; Resp 18; Pulse Ox 99% ; kt5 20:56 Body Mass Index 19.53 (67.13 kg, 185.42 cm) me1 20:56 Pain Scale: Adult az1 ED Course: 20:45 Patient arrived in ED. gm2 20:46 [facility]sca [facility] kb 20:46 Sina Luke MD is Attending Physician. kb 20:57 Triage completed. me1 20:57 Arm band placed on Patient placed in an exam room. me1 21:03 Silvina Shahid, RN is Primary Nurse. kt5 21:03 Patient has correct armband on for positive identification. Bed in low position. Call kt5 light in reach. Side rails up X 1. Client placed on continuous cardiac and pulse oximetry monitoring. NIBP monitoring applied. Door closed. Noise minimized. Warm blanket given. Pillow given. 21:13 Ankle Left 3 View XRAY In Process Unspecified. EDMS 21:53 Provided Education on: follow up. kt5 21:53 No provider procedures requiring assistance completed. kt5 22:02 none. kt5 Administered Medications: No medications were administered Medication: 21:03 VIS not applicable for this client. kt5 Outcome: 21:53 Discharged to home ambulatory, kt5 21:53 Condition: stable 21:53 Discharge instructions given to patient, Instructed on discharge instructions, follow up and referral plans. Demonstrated understanding of instructions, follow-up care, medications, Prescriptions given X 2, 21:58 Discharge ordered by MD. kb 22:03 Patient left the ED. kt5 Signatures: Dispatcher [employer] EDAK Franchesca John FNP-C FNP-Ckb Eddleman, Michelle, RN RN az1 Sherron Aguilar 2 Silvina Shahid, RN RN kt5
[2024-11-18 02:51] VITALS: TEMP 97.5
[2024-11-18 02:55] VITALS: BP 132/80; O2SAT 99
== END 2024-11-17 22:03 | disposition home or self-care (01) ==
LOC: ER 20:36
DX: M25.572 Pain in left ankle and joints of left foot (principal); F17.210 Nicotine dependence, cigarettes, uncomplicated

== ENCOUNTER 2024-11-18 20:20 | Inpatient (IN) | payer OTHER ==
--- OUTSIDE RECORDS SUMMARY | 2024-11-18 20:25 | XMS REPORT | Continuity of Care Document ---
Author Name Unknown Address [address] [facility] [address] [place] [address] Organization [facility] [place] Address [address] [facility] [address] [place] [address] Care Team Providers Care Debone Supervisor Name Role Phone PCP, PATIENT DOES NOT [...] lower quadrant Disease Active 04-07 00:00: 00 [facility] Family history of malignant neoplasm of gastrointe stinal tract Family history of malignant neoplasm of gastrointe stinal tract Disease Active 11-13 00:00: 00 [facility] Loss of weight Loss of weight Disease Active 11-13 00:00: 00 [facility] Dizziness, nonspecifi c Dizziness, nonspecifi c Disease Active 11-13 00:00: 00 [facility] Anal fistula Anal fistula Disease Active 2010-0314 00:00: 00 [facility] Crohn's disease Crohn's disease Disease Active 2010-03 00:00: 00 [facility] 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 Disease Active 2010-03 00:00: 00 [facility] Allergies, Adverse Reactions, Alerts Allergy Name Allergy Type Status Severity Reaction(s) Onset Date Inactive Date Treating Clinician Comments Source Adhesive Propensi ty to adverse reaction s Active Unknown - See comments 05-12 00:00: 00 [facility] Sulfadia zine Propensi ty to adverse reaction s Active Nausea and/or Vomiting 05-12 00:00: 00 [facility] ADHESIVE Drug Class Active Unknown-Cmnt 05-12 00:00: 00 [facility] SULFADIA ZINE DRUG INGREDI Active N/V 05-12 00:00: 00 [facility] Azathiop rine Propensi ty to adverse reaction s Active Nausea and/or Vomiting 2012-03 00:00: 00 [facility] Ketorola c Propensi ty to adverse reaction s Active Nausea and/or Vomiting 2012-03 00:00: 00 [facility] AZATHIOP RINE DRUG INGREDI Active Diarrhea 2012-03 00:00: 00 [facility] KETOROLA C DRUG INGREDI Active N/V 2012-03 00:00: 00 [facility] Social History Social Habit Start Date Stop Date Quantity Comments Source History of tobacco use Cigarette Smoker [facility] Sex 2024-05-22 07:08:00 2024-05-22 07:08:00 Male (finding) [facility] History of Social function 2018-10-02 00:00:00 2018-10-02 00:00:00 [facility] Alcoholic beverage intake 2018-05-15 00:00:00 2018-05-15 00:00:00 Current drinker of alcohol (finding) [facility] Cigarettes smoked current (pack per day) - Reported 2018-05-12 00:00:00 2018-05-12 00:00:00 [facility] Cigarette pack-years 2018-05-12 00:00:00 2018-05-12 00:00:00 [facility] Tobacco use and exposure 2018-05-12 00:00:00 2018-05-12 00:00:00 Smokeless tobacco non-user [facility] Sex Assigned At 1956-08-13 00:00:00 1956-08-13 00:[birth year]:00 Male [facility] Smoking Status Start Date Stop Date Source Unknown if ever smoked [facility] Smokes tobacco daily 2018-05-12 00:00:00 [facility] Medications Ordered Medication Name Filled Medication Name Start Date Stop Date Current Medication? Ordering Clinician Indication Dosage Frequency Signature (SIG) Comments Components Source iopamidol (ISOVUE 370-500 mL) injection 84 mL 04-08 04:15: 00 04-08 04:15 :00 No [id number] 84mL 84 mL, Intravenou s, ONCE, 1 dose, On Sat04/07/24 at 2215, Routine [facility] ondansetron (ZOFRAN (PF)) injection 4 mg 04-08 01:45: 00 04-08 02:17 :00 No 4mg 4 mg, Slow IV Push, ONCE, 1 dose, On Sat04/07/24 at 1945, Administer over 2-5 Minutes, 2 mL [facility] morpHINE (4 mg/mL) injection 4 mg 04-08 01:45: 00 04-08 02:15 :00 No 4mg 4 mg, Slow IV Push, ONCE, 1 dose, On Sat04/07/24 at 1945, STAT [facility] famotidine 20 mg tablet 04-07 22:19: 01 Yes 20mg Take 20 mg by mouth 2 (two) times daily. [facility] levoFLOXaci n 750 mg tablet 04-07 00:00: 00 Yes [id number] 750mg Take 1 tablet by mouth every 24 (twenty-fo ur) hours. [facility] metroNIDAZO LE 500 mg tablet 04-07 00:00: 00 Yes [id number] 500mg Take 1 tablet by mouth every 8 (eight) hours. [facility] predniSONE 20 mg tablet 04-07 00:00: 00 Yes [id number] 60mg Take 3 tablets by mouth every morning. [facility] sucralfate 1 gram tablet 04-07 00:00: 00 Yes [id number] 1g Take 1 tablet by mouth before meals and at bedtime. [facility] famotidine 20 mg tablet 04-07 00:00: 00 Yes [id number] 20mg Take 1 tablet by mouth in the morning and 1 tablet in the evening. [facility] dicyclomine 20 mg tablet 04-07 00:00: 00 Yes [id number] 20mg Take 1 tablet by mouth 4 (four) times daily. [facility] albuterol 90 mcg/actuati on inhaler 05-14 12:19: 03 Yes 2{puff} Inhale 2 Puffs as needed for Wheezing or Shortness of Breath (as neeeded). [facility] lisinopril (PRINIVIL,Z ESTRIL) 20 mg tablet 05-14 12:19: 03 Yes [id number] 20mg Take 20 mg by mouth daily. [facility] Mometasone- Formoterol (DULERA) 200-5 mcg/actuati on inhaler 05-14 12:19: 03 Yes Inhale. [facility] ferrous sulfate 325 mg (65 mg iron) tablet 05-14 12:19: 03 Yes 325mg Take 325 mg by mouth 3 (three) times daily with meals. [facility] gabapentin 300 mg capsule 05-14 12:19: 03 Yes 300mg Take 300 mg by mouth 3 (three) times daily. [facility] LORazepam 0.5 mg tablet 05-14 12:19: 03 Yes .5mg Take 0.5 mg by mouth 2 (two) times daily. [facility] naproxen 500 mg EC tablet 05-14 12:19: 03 Yes 500mg Take 500 mg by mouth 2 (two) times daily with meals. [facility] dicyclomine 20 mg tablet 11-01 00:00: 00 Yes 20mg Take 1 tablet by mouth 4 (four) times daily. [facility] esomeprazol e (NEXIUM) 40 mg capsule 2015-03 00:00: 00 Yes 40mg Take 1 capsule by mouth daily with breakfast. [facility] sulfaSALAzi ne (AZULFIDINE ) 500 mg tablet 05-02 00:00: 00 Yes TAKE TWO TABLETS BY MOUTH 4 TIMES DAILY [facility] esomeprazol e (NEXIUM) 40 mg capsule 05-02 00:00: 00 Yes [id number] 40mg Take 1 Cap by mouth daily with breakfast. [facility] HYDROcodone -acetaminop hen (NORCO 5) 5-325 mg tablet 10-30 00:00: 00 Yes [id number] 1{tbl} Take 1 Tab by mouth every 4 (four) hours as needed for Pain (scale 7-10). [facility] proMETHazin e (PHENERGAN) 25 mg tablet 2012-03 00:00: 00 Yes 25mg Take 1 Tab by mouth every 6 (six) hours as needed for Nausea and Vomiting (N/V). [facility] psyllium (METAMUCIL) powder 08-04 00:00: 00 Yes [id number] 1{capsu le} Take 1 Cap by mouth daily. [facility] simethicone (MYLICON) 80 mg chewable tablet 2010-03 00:00: 00 Yes 80mg Take 1 Tab by mouth after meals and at bedtime. [facility] Immunizations Ordered Immunization Name Filled Immunization Name Date Status Comments Source Influenza Virus Vaccine 2010-12-29 00:00:00 Completed [facility] Vital Signs Vital Name Observation Time Observation Value Comments Sheyla banegas Systolic blood pressure 2024-04-08 04:00:00 144 mm[Hg] [facility] Diastolic blood pressure 2024-04-08 04:00:00 70 mm[Hg] [facility] Heart rate 2024-04-08 04:00:00 67 /min [facility] Body temperature 2024-04-08 04:00:00 36.56 Keila [facility] Respiratory rate 2024-04-08 04:00:00 20 /min [facility] Oxygen saturation in Arterial blood by Pulse oximetry 2024-04-08 04:00:00 100 /min [facility] Body height 2024-04-08 01:38:00 182.9 cm [facility] Body weight 2024-04-08 01:38:00 68.04 kg [facility] BMI 2024-04-08 01:38:00 20.34 kg/m2 [facility] Procedures Procedure Date / Time Performed Performing Clinicia n Source CT Abdomen Pelvis W Con 2024-05-27 22:36:[address] [facility] [address] Abdomen Pelvis W Con 2024-05-27 21:36:00 [facility] SARS-CoV-2 & FLU Antigen (Rapid) 2024-05-02 00:00:00 [facility] SARS-CoV-2 & FLU Antigen (Rapid) 2024-05-02 00:00:00 [facility] CT ABDOMEN PELVIS W CONTRAST 2024-04-08 03:16:28 Tiana Cuevas [facility] FENTANYL (IMMUNOASSAY) 2024-04-08 02:34:00 Tiana Wright [facility] URINALYSIS 2024-04-08 02:34:00 Fariha Cuevas [facility] CREATINE KINASE 2024-04-08 02:11:00 Fariha Cuevas [facility] LIPASE 2024-04-08 02:11:00 Fariha Cuevas [facility] TROPONIN I 2024-04-08 02:11:00 Fariha Cuevas [facility] COMP. METABOLIC PANEL ([id number]) 2024-04-08 02:11:00 Tiana Cuevas [facility] CBC WITHOUT DIFF 2024-04-08 02:11:00 Tiana Cuevas [facility] INFLUENZA A/B RSV COVID NAAT 2024-04-08 02:11:00 Tiana Cuevas [facility] N-TERMINAL PRO-BNP 2024-04-08 02:11:00 Tiana Cuevas [facility] Encounters Start Date/Time End Date/Time Encounter Type Admission Type Attending [facility] Facility Care Department Encounter ID Source 2024-05-27 21:07:00 2024-05-28 00:35:00 Emergency ER Belen Prater [facility] [id number] [facility] 2024-05-02 13:23:00 2024-05-02 14:27:00 Departed Emergency [id number] [facility] Ctr-EMERGEN CY SERVICES/MS [facility] [id number] 24 [facility] 2024-05-02 13:23:00 2024-05-02 14:27:00 Emergency ER Nikole Ramos [facility] [id number] [facility] 2024-04-15 00:00:00 2024-04-15 11:24:00 Letter (Out) Campaigns, Generic Provider Campaigns, Generic Provider [facility] [id number] [facility] 2024-04-07 19:44:00 2024-04-07 22:48:00 Emergency X TIANA CUEVAS [facility] ERT [id number] [facility] 2024-04-07 19:44:00 2024-04-07 22:48:00 Emergency Tiana Cuevas [facility] [id number] [facility] Results Test Description Test Time Test Comments Results Resul t Comments Source CT Abdomen Pelvis W Con 2024-05-27 23:41:00 [facility] BRYANName: REBECCA MENEZES : 08/13/1956 Sex: M I [facility] Pt Name: REBECCA MENEZES [employer] Phys: [place] [address] : 08/13/1956 Age: 67 SEX:M [phone] Exam Date: 05/27/24 Status: REG ER Acct: [id number] Loc: ERS Pt Unit #: [id number] Report #: [id number] CC: ED TEMP PROVIDER BELEN PRATER MD PULSECHECKSJX:[id number] CAT SCAN REPORT Report Status: Signed Order # Category/Exam [id number] CT/CT Abdomen Pelvis W Con ([id number]): . Results EXAM:CT Abdomen Pelvis W Con [...] Dusty Tinoco MD Electronically Signed Date/Time: 05/27/24 2338 Technologist: MARIVEL Dictated Date/Time: 05/27/24 2188 Transcribed Date/Time: [id number] 23:10:00* Test Item Value Reference Range Interpretation Comme nts Chemistry (test code = NA-T) 136 mmol/L 136-145 N Chemistry (test code = K-T) 4.0 mmol/L 3.5-5.1 N Chemistry (test code = CL-T) 106 mmol/L 98-107 N Chemistry (test code = CO2-T) 22 mmol/L 23-31 L Chemistry (test code = ANGP) 12 mmol/L 10-20 N Chemistry (test code = BUN) 15 mg/dL 8.4-25.7 N Chemistry (test code = CREATT) 1.26 mg/dL 0.70-1.30 N Chemistry (test code = EGFRCR) 63 Reference Range for Estimated GFR: Greater than 90 mL/min/1.73 [id number] eGFR is based on the CKD-EPI 2020 equation thatdoes not use a race coefficient. Chemistry (test code = GLU-T) 78 mg/dL 80-115 L Chemistry (test code = CA-T) 8.6 mg/dL 7.8-10.44 N Chemistry (test code = TBILI-T) 0.3 mg/dL 0.3-1.2 N Chemistry (test code = TP) 7.1 g/dL 5.8-8.1 N Chemistry (test code = ALB) 3.1 g/dL 3.1-4.5 N Chemistry (test code = GLOB) 4.0 g/dL 2.4-3.5 H Chemistry (test code = AG) 0.8 g/dL 1.2-2.2 L Chemistry (test code = ALP) 106 U/L 40-110 N Chemistry (test code = AST) 15 U/L 11-34 N Chemistry (test code = ALT) 9 U/L Less than 45 [id number] 22:44:00* Test Item Value Reference Range Interpretation [...] None Seen SARS-CoV-2 + Flu A B [id number] 14:01:00* Test Item Value Reference Range Interpretation Comme nts SARS-CoV-2 + Flu A B ANTIGEN (test code = TXJI7EL) The [employer] Veritor System for Rapid Detection of SARS-CoV-2 SARS-CoV-2 + Flu A B ANTIGEN (test code = AJOR5NI5) management decisions. SARS-CoV-2 + Flu A B ANTIGEN (test code = LSMX8AZ0) [id number] N SARS-CoV-2 + Flu A B ANTIGEN (test code = BEWR4HF0) N N CT Abdomen pelvis w [id number] 04:00:32Ordering physician: TIANA CUEVAS Indication: Left upper [...] through the abdomenand pelvis demonstrate no osseousdestructive lesion.[facility] Troponin [id number] 02:49:18* Test Item Value Reference Range Interpretation Comme nts TROPONIN I (test code = 1380964118) <=0.034 AMALIA (test code = AMALIA) Reference [...] of biotin. Lab Interpretation (test code = 70376-4) Normal [facility] [id number]-[id number] 02:47:02* Test Item Value Reference Range Interpretation Comme [facility] NT-proBNP (test code = 83712-1) 562 pg/mL <=125 AMALIA (test code = AMALIA) Result Indeterminate-Consid er causes of NT-proBNP elevation other than Heart failure such as acute coronary syndrome, pulmonary embolism, pulmonary hypertension, sepsis, stroke, and renal dysfunction. Lab Interpretation (test code = 14264-9) Abnormal [facility] Center[facility]. Metabolic Panel ([id number])2024-04-08 02:38:57* Test Item Value Reference Range Interpretation Comme nts NA (test code = 5955360852) 137 mmol/L 135-145 K (test code = 7417550258) 4.3 mmol/L 3.5-5.0 CL (test code = 1192099922) 102 mmol/L 98-108 CO2 TOTAL (test code = 4097883629) 28 mmol/L 23-31 AGAP (test code = 5302678898) 7 2-16 BUN (test code = 9995318308) 21 mg/dL 7-23 GLUCOSE (test code = 9872716262) 79 mg/dL 70-110 CREATININE (test code = 2160-0) 1.19 mg/dL 0.60-1.25 TOTAL BILI (test code = 0919016215) 0.3 mg/dL 0.1-1.1 CALCIUM (test code = 2304248679) 9.3 mg/dL 8.6-10.6 T PROTEIN (test code = 4158767069) 7.4 g/dL 6.3-8.2 ALBUMIN (test code = 0297195748) 4.4 g/dL 3.5-5.0 ALK PHOS (test code = 3672006740) 95 U/L 34-122 ALTv (test code = 1742-6) 17 U/L 5-50 AST(SGOT) (test code = 9854396613) 31 U/L 13-40 eGFR (test code = 73286-0) 67.0 mL/min/1.73m2 CKD-EPI eGFR (20 21). Assuming creatinine has been stable day-to-day for at least three months, the eGFR indicates Category G2 (60 - 89 mL/min/1.73 m2) [facility]2025-01-15 02:37:36* Test Item Value Reference Range Interpretation Comme nts LIPASE (test code = 7189960931) 58 U/L 0-220 Lab Interpretation (test cod e = 19165-7) Normal [facility] CenterCreatine [id number] 02:37:21* Test Item Value Reference Range Interpretation Comme nts CK (test code = 3358732420) 366 U/L 33-194 H Lab Interpretation (test cod e = 99445-8) Abnormal [facility] CenterCbc without [id number] 02:29:16* Test Item Value Reference Range Interpretation [...] 777-3) 310 150-328 MPV (test code = 99626-8) 9.6 fL 9.8-13.0 L RDW-CV (test code = 788-0) 13.6 % 12.1-15.4 RDW-SD (test code = 69244-4) 45.9 fL 38.5-51.6 NRBC x10^3 (test code = 0977349610) See_Comment [Automated messa ge] The system which generated this result transmitted reference range: 10*3/?L. The reference range was not used to interpret this result as normal/abnormal. NRBC/100 WBC (test code = 1327331028) 0.0 0.0-10.0 IPF % (test code = 2064131641) Lab Interpretation (test code = 78810-9) Abnormal [facility] Notes Date/Time Note Provider Source [...] with steady gait, in no apparent distress, EPCIÓN Bone RN [facility] 2024-04-07 19:35:18 Pt arrives ambulatory to ED c/o joint pain, lower extremity swelling and increased urination that started yesterday. EPCIÓN Saleh RN [facility]
[2024-11-18 22:11] LABS: Absolute Lymphocytes (CBC) 0.9 K/uL (0.7-4.9); Hematocrit 32.4 % (39.6-49.0); Hemoglobin 10.9 g/dL (13.6-17.9); MCH 28.6 pg (27.0-35.0); MCHC 33.5 g/dL (32.0-36.0); MCV 85.4 fL (80-100); MPV 7.6 fL (7.6-11.3); Nucleated RBC Absolute Count 0.0 (0-0); Nucleated Red Blood Cells % 0.0 % (0-0); RBC Red Blood Cell Count 3.79 M/uL (4.33-5.43); White Blood Count 8.50 thou/uL (4.3-10.9)
--- NOTE | 2024-11-18 22:16 | RAD REPORT ---
Procedure: Chest Single View HISTORY: Cough COMPARISON: 2019 FINDINGS: Right upper lobe opacities appear mildly more prominent than on the prior exam. Additional bilateral interstitial lung opacities unchanged. Lungs are mildly to moderately hyperaerated. No significant pleural effusion noted. The heart is normal size. IMPRESSION: Mildly increased right upper lobe opacities compared to 2019. These still may be chronic. Another con sideration is that there is a mild superimposed pneumonia. If clinically indicated further evaluation with unenhanced CT scan could be obtained
[2024-11-18 22:29] LABS: Influenza A Ag Negative; Influenza B Ag Negative; SARS-CoV-2 Antigen Rapid Res Negative (Negative)
[2024-11-18 22:31] LABS: ALT/SGPT 19 U/L (16-61); Albumin 3.5 g/dL (3.4-5.0); Albumin/Globulin Ratio 0.9 (1.1-1.8); Alkaline Phosphatase 110 U/L (45-117); Anion Gap 11.1 mEq/L (5.0-15.0); BUN Blood Urea Nitrogen 21 mg/dL (7-18); Globulin 3.9 g/dL (2.3-3.5); Glucose Level 89 mg/dL (74-106); NT PRO-BNP 461 pg/mL (<125); Troponin High Sensitivity 9.4 pg/mL (<58.9)
[2024-11-18 22:34] LABS: AST/SGOT 21 U/L (15-37); Bilirubin Indirect, Calculated 0.0 mg/dL (0.2-0.8); Potassium 4.1 mEq/L (3.5-5.1)
[2024-11-18] MEDS ORDERED: ALBUTEROL 2.5 MG/3 ML NEB SOL ONE (23:26)
[2024-11-18] MEDS ORDERED: NA CHLORIDE 0.9% 1,000 ML ONE (23:26)
[2024-11-18] MEDS ORDERED: IPRATROPIUM BROM 0.5MG/2.5ML ONE (23:26)
[2024-11-18] MEDS ORDERED: ONDANSETRON 4 MG/2 ML VIAL ONE (23:26)
[2024-11-18] MEDS ORDERED: FAMOTIDINE 20 MG/2 ML VIAL IV ONE (23:26)
[2024-11-18] MEDS ORDERED: PANTOPRAZOLE 40 MG INJ ONE (23:27)
--- NOTE | 2024-11-19 01:53 | RAD REPORT ---
CLINICAL HISTORY: Abdominal pain. COMPARISON: None. TECHNIQUE: CT ABDOMEN PELVIS WITH IV CONTRAST on 11/18/2024 11:37 PM CDT This exam was performed according to our departmental dose-optimization program, which includes autom ated exposure control, adjustment of the mA and/or kV according to patient size and/or use of iterative reconstruction technique. FINDINGS: There is patchy airspace disease in the anterior segment of the left lower lobe. Abdomen: The liver is normal in appearance. There is no biliary dilatation. Gallbladder is normal in appearance. The pancreas and spleen are normal in appearance. The adrenal glands and kidneys are unremarkable. Abdominal aorta is heavily calcified without aneurysm. There is no free air. There is no retroperiton eal adenopathy. Pelvis: There is no bowel obstruction. Urinary bladder is unremarkable. There is no free fluid. Appen belen is normal. Skeleton: There are no acute osseous findings. No suspicious bony lesions. IMPRESSION: No acute inflammatory process in the abdomen or pelvis. Left lower lobe pneumonia. Electronically signed by: Andrés Prado MD 11/19/2024 12:43 AM CDT RP Due to temporary technical issues with the PACS/Mettl reporting system, reports are being millicent d by the in-house radiologist without review as a courtesy to ensure prompt reporting the interpreting radiologist is fully responsible for the content of the report. Transcribed Date/Time: 11/19/2024 1:53 AM
[2024-11-19] MEDS ORDERED: ACETAMINOPHEN 500 MG TAB ONE (02:32)
[2024-11-19] MEDS ORDERED: NA CHLORIDE 0.9% 250 ML ONE (02:32)
[2024-11-19] MEDS ORDERED: AZITHROMYCIN 500 MG INJ IVPB ONE (02:32)
[2024-11-19] MEDS ORDERED: CEFTRIAXONE 1000 MG/VIAL ONE (02:32)
--- NOTE | 2024-11-19 02:36 | EDPHYS ---
Physician Documentation [facility] Name: Robby Springer Age: 69 yrs Sex: Male : 1955 Arrival Date: 11/18/2024 Time: 20:20 Bed 14 Private MD: ED Physician Sina Luke HPI: 11/19 01:49 This 69 yrs old Male presents to ER via Ambulatory with complaints of tw7 Abdominal Pain, Epigastric Pain, Diarrhea. 01:49 69-year-old male with a past medical history of Crohn's disease, CKD, congestive heart tw7 failure presents ED today with complaints of abdominal pain, nausea, diarrhea. Patient reports abdominal pain located epigastric region. Reports has been having diarrhea for the last few days. He reports his stools are black and watery. He denies any chest pain or shortness of breath. His abdominal pain he says is mild to moderate. Patient also reports muscle cramping in his arms and legs he is walking all day today. He denies hematemesis. Denies being on blood thinners. Patient just he notes that he has a cough and congestion.. Historical: - Allergies: 11/18 21:51 Imuran; me1 21:51 Toradol; me1 - PMHx: 21:51 chron's; Enlarged Heart; GERD; Hypercholesterolemia; Hypertension; me1 - PSHx: 21:51 rectal fistula repair; me1 - Immunization history:: Adult Immunizations unknown. - Infectious Disease History:: Denies. - Social history:: Smoking status: Patient reports the use of cigarette tobacco products, smokes one-half pack cigarettes per day. ROS: 11/19 01:50 Constitutional: Negative for fever, chills, and weight loss, Eyes: Negative for injury, tw7 pain, redness, and discharge, ENT: Negative for injury, pain, and discharge, Neck: Negative for injury, pain, and swelling, Cardiovascular: Negative for chest pain, palpitations, and edema, Back: Negative for injury and pain, MS/Extremity: Negative for injury and deformity, Neuro: Negative for headache, weakness, numbness, tingling, and seizure, Respiratory: Positive for cough, Negative for dyspnea on exertion, hemoptysis, shortness of breath, sputum production, Abdomen/GI: Positive for abdominal pain, nausea, diarrhea, Negative for vomiting, dysphagia, hematemesis, bowel incontinence, flatulence, Exam: 01:54 Head/Face: Normocephalic, atraumatic. Eyes: Pupils equal round and reactive to light, tw7 extra-ocular motions intact. Lids and lashes normal. Conjunctiva and sclera are non-icteric and not injected. Cornea within normal limits. Periorbital areas with no swelling, redness, or edema. ENT: Nares patent. No nasal discharge, no septal abnormalities noted. Tympanic membranes are normal and external auditory canals are clear. Oropharynx with no redness, swelling, or masses, exudates, or evidence of obstruction, uvula midline. Mucous membranes moist. Neck: Trachea midline, no thyromegaly or masses palpated, and no cervical lymphadenopathy. Supple, full range of motion without nuchal rigidity, or vertebral point tenderness. No Meningismus. Chest/axilla: Normal chest wall appearance and motion. Nontender with no deformity. No lesions are appreciated. Cardiovascular: Regular rate and rhythm with a normal S1 and S2. No gallops, murmurs, or rubs. Normal PMI, no JVD. No pulse deficits. 01:54 Constitutional: The patient appears emaciated, unkempt, 01:54 Respiratory: Breath sounds: wheezing: expiratory is heard diffusely, 01:55 Abdomen/GI: Inspection: abdomen appears normal, Bowel sounds: normal, Palpation: tw7 abdomen is soft and non-tender, in all quadrants, 07:37 ECG was reviewed by the Attending Physician. tw7 Vital Signs: 11/18 20:58 Pulse 95; Resp 18; Temp 98.9(O); Pulse Ox 98% on R/A; Weight 67.13 kg; Height 6 ft. 0 kd3 in. ; 20:58 BP 142 / 80; kd3 22:19 BP 164 / 72; Pulse 87; Resp 16; Pulse Ox 95% on R/A; kd3 23:21 BP 160 / 77; Pulse 86; Resp 19; Pulse Ox 96% on R/A; kd3 11/19 01:00 BP 158 / 81; Pulse 84; Resp 19; Pulse Ox 98% on R/A; kd3 02:07 BP 133 / 83; Pulse 102; Resp 18; Temp 102.7(O); Pulse Ox 96% on R/A; kd3 03:06 BP 122 / 66; Pulse 103; Resp 18; Pulse Ox 96% on R/A; kd3 05:09 BP 121 / 71; Pulse 65; Resp 17; Temp 98.2(O); Pulse Ox 99% on R/A; kd3 11/18 20:58 Body Mass Index 20.07 (67.13 kg, 182.88 cm) kd3 MDM: 11/18 21:18 Medical Screening Exam initiated 11/19 02:16 Data reviewed: vital signs, nurses notes, EMS record. ED course: 69-year-old male with tw7 a past medical history of COPD, Crohn's disease, CHF presents ED today plaints of abdominal pain, nausea, diarrhea, cough, congestion. On my evaluation patient is emaciated, chronically ill-appearing patient is febrile temperature 101. Tachycardic to 110s. Wheezing lungs throughout. Lab work performed shows patient has hyponatremia with a sodium of 132 mild MICHAEL with a creatinine 1.33 mild anemia with hemoglobin 10.9, no leukocytosis. Normal LFTs and negative COVID flu and strep were negative. BNP is elevated at 461. CT abdomen pelvis performed for further evaluation of his abdominal pain shows no acute intracranial process but does appear patient. Chest x-ray also reports concerning findings for pneumonia. Patient is febrile and tachycardic, clinically septic. Patient was given IV fluid, IV antibiotics. Blood cultures were sent. Lactic acid is pending. Patient will be admitted to the hospital service for further management of community-acquired.. 11/18 21:17 Order name: COVID-19 Ag + Flu A+B Ag; Complete Time: 23:37 11/18 21:18 Order name: Basic Metabolic Panel; Complete Time: 23:37 11/18 21:18 Order name: CBC with Diff; Complete Time: 23:37 11/18 21:18 Order name: LFT's; Complete Time: 23:37 11/18 21:18 Order name: NT PRO-BNP; Complete Time: 23:37 11/18 21:18 Order name: Troponin HS; Complete Time: 23:37 11/19 02:12 Order name: Blood Culture Adult (2) 11/19 02:12 Order name: Lactate w/ 2H reflex if indic.; Complete Time: 07:39 11/19 02:12 Order name: Procalcitonin; Complete Time: 07:39 7 11/19 03:00 Order name: CBC with Automated Diff EDMS 11/19 03:00 Order name: CBC with Automated Diff EDMS 11/19 03:00 Order name: Comprehensive Metabolic Panel EDMS 11/19 03:00 Order name: Comprehensive Metabolic Panel EDMS 11/18 21:18 Order name: XRAY Chest (1 view); Complete Time: 23:37 11/18 23:37 Order name: CT Abd/Pelvis - IV Contrast Only; Complete Time: 02:01 11/18 21:18 Order name: Cardiac monitoring; Complete Time: 22:12 11/18 21:18 Order name: EKG - Nurse/Tech; Complete Time: 22:12 11/18 21:18 Order name: IV Saline Lock; Complete Time: 22:12 11/18 21:18 Order name: Labs collected and sent; Complete Time: 22:12 11/18 21:18 Order name: O2 Per Protocol; Complete Time: 22:12 11/18 21:18 Order name: O2 Sat Monitoring; Complete Time: 22:12 11/19 02:12 Order name: Accucheck; Complete Time: 02:30 11/19 02:12 Order name: IV Saline Lock - Large Bore; Complete Time: 02:30 11/19 02:12 Order name: Vital Signs; Complete Time: 02:30 EC:37 Rate is 87 beats/min. Rhythm is regular. QRS [place] is Normal. VA interval is normal. QRS tw7 interval is normal. QT interval is normal. Q waves are Present. Administered Medications: 11/18 23:37 Drug: Famotidine IVP 20 mg IVP once; dilute with 10 mL 0.9% NaCl; give over 2 minutes kd3 Route: IVP; Site: right forearm; 23:37 Drug: Pantoprazole IVP 40 mg IVP once Route: IVP; Site: right forearm; kd3 23:38 Drug: NS 0.9% IV 1000 ml IV at 1000 ml once; to be given as a bolus over 60 minutes kd3 Route: IV; Rate: 1000 ml; Site: left forearm; 23:38 Drug: Ondansetron IVP 4 mg IVP once; over 2 minutes Route: IVP; Site: right forearm; kd3 23:38 Drug: DuoNeb Nebulize (3:1) (2.5 mg - 0.5 mg) 3 ml Nebulizer once Route: Nebulizer; kd3 11/19 02:37 Drug: Rocephin IV 1 grams IV at calculated rate once; Given slow IV push per pharmacy tb4 instructions Route: IV; Rate: calculated rate; Site: right forearm; 03:42 Follow up: Response: No adverse reaction; IV Status: Completed infusion tb4 02:37 Drug: AZITHromycin IVPB 500 mg IVPB once over 1 hrs; (mix in 250 mL NS) Route: IVPB; tb4 Infused Over: 1 hrs; Site: right upper arm; 03:42 Follow up: Response: No adverse reaction; IV Status: Completed infusion tb4 02:39 Drug: Acetaminophen PO 1000 mg PO once Route: PO; tb4 03:43 Follow up: Response: No adverse reaction tb4 Disposition Summary: 11/19/24 02:35 Hospitalization Ordered Notes: Hospitalization Status: Observation tw7 Provider: Som Jones tw7 Location: Telemetry/MedSurg (observation) tw7 Condition: Stable tw7 Problem: new tw7 Symptoms: have worsened tw7 Bed/Room Type: Standard [facility] Room Assignment: [facility](11/19/24 03:28) [facility] Diagnosis - Pneumonia, unspecified organism tw7 Forms: - Medication Reconciliation Form tw7 - SBAR form tw7 - Leadership Thank You Letter tw7 Signatures: Dispatcher [employer] Rylie Hallman RN RN kd3 Erica Mcgovern RN RN nc1 Sara Kruger [facility] Sina Luke MD MD tw7 Malu Booth RN RN tb4 Corrections: (The following items were deleted from the chart) 11/18 21:19 21:19 BASIC METABOLIC PANEL+C.LAB.BRZ ordered. EDMS EDMS 21:19 21:19 CBC+H.LAB.BRZ ordered. EDMS EDMS 21:19 21:19 HEPATIC FUNCTION+C.LAB.BRZ ordered. EDMS EDMS 21:19 21:19 PROBNP+C.LAB.BRZ ordered. EDMS EDMS 21:19 21:19 Troponin High Sensitivity+C.LAB.BRZ ordered. EDMS EDMS 21:19 Chest Single View+RAD.RAD.BRZ ordered. EDMS EDMS 11/19 03:28 02:35 tw7 km
--- NOTE | 2024-11-19 02:36 | ER ---
Nurse's Notes [facility] Name: Robby Springer Age: 69 yrs Sex: Male : 1955 Arrival Date: 11/18/2024 Time: 20:20 Bed 14 Private MD: Diagnosis: Pneumonia, unspecified organism Presentation: 11/18 20:58 Chief complaint: Patient states: I have had diarrhea and black stool. i have chrons and kd3 my stomach hurts. Coronavirus screen: Vaccine status: Patient reports receiving the 2nd dose of the covid vaccine. Ebola Screen: No symptoms or risks identified at this time. Initial Sepsis Screen: Does the patient meet any 2 criteria? No. Patient's initial sepsis screen is negative. Does the patient have a suspected source of infection? No. Patient's initial sepsis screen is negative. Risk Assessment: Do you want to hurt yourself or someone else? Patient reports no desire to harm self or others. Onset of symptoms was November 18, 2024. 20:58 Method Of Arrival: Ambulatory kd3 20:58 Acuity: MELIA 3 kd3 20:58 Chief complaint:. kd3 Historical: - Allergies: 21:51 Imuran; me1 21:51 Toradol; me1 - PMHx: 21:51 chron's; Enlarged Heart; GERD; Hypercholesterolemia; Hypertension; me1 - PSHx: 21:51 rectal fistula repair; me1 - Immunization history:: Adult Immunizations unknown. - Infectious Disease History:: Denies. - Social history:: Smoking status: Patient reports the use of cigarette tobacco products, smokes one-half pack cigarettes per day. Screenin:51 [facility] ED Fall Risk Assessment (Adult) History of falling in the last 3 months, me1 including since admission No falls in past 3 months (0 pts) Confusion or Disorientation No (0 pts) Intoxicated or Sedated No (0 pts) Impaired Gait No (0 pts) Mobility Assist Device Used No (0 pt) Altered Elimination No (0 pt) Score/Fall Risk Level 0 - 2 = Low Risk Maintained a safe environment, Provided non-skid footwear, Hourly rounding (assess needs \T\ fall precautionary measures) done. Abuse screen: Denies threats or abuse. Nutritional screening: No deficits noted. Tuberculosis screening: No symptoms or risk factors identified. Assessment: 21:47 General: Appears uncomfortable, Behavior is calm, cooperative, appropriate for age, me1 Reports I have had diarrhea and black stool. i have chrons and my stomach hurts. Reports generalized body aches, congestion, cough and sob since this morning. Pain: Complains of pain in abdomen and generalized body aches Pain does not radiate. Pain currently is 6 out of 10 on a pain scale. Quality of pain is described as aching, crampy, Pain began gradually, Is continuous. Neuro: Level of Consciousness is awake, alert, obeys commands, Oriented to person, place, time, situation, Appropriate for age. Cardiovascular: Patient's skin is warm and dry. Respiratory: Airway is patent Respiratory effort is even, unlabored, Respiratory pattern is regular, symmetrical. Respiratory: Reports cough that is. GI: Abdomen is non-distended, Bowel sounds present X 4 quads. Abd is soft X 4 quads Reports lower abdominal pain, upper abdominal pain, diarrhea. : No signs and/or symptoms were reported regarding the genitourinary system. EENT: Reports nasal congestion. Derm: Skin is fragile, is thin, Skin is normal. Musculoskeletal: Circulation, motion, and sensation intact. Range of motion: intact in all extremities, Reports generalized body aches. 22:20 General: Appears in no apparent distress. Behavior is calm, cooperative. Respiratory: kd3 Airway is patent Trachea midline Respiratory effort is even, unlabored, Respiratory pattern is regular, symmetrical. Vital Signs: 20:58 Pulse 95; Resp 18; Temp 98.9(O); Pulse Ox 98% on R/A; Weight 67.13 kg; Height 6 ft. 0 kd3 in. ; 20:58 BP 142 / 80; kd3 22:19 BP 164 / 72; Pulse 87; Resp 16; Pulse Ox 95% on R/A; kd3 23:21 BP 160 / 77; Pulse 86; Resp 19; Pulse Ox 96% on R/A; kd3 11/19 01:00 BP 158 / 81; Pulse 84; Resp 19; Pulse Ox 98% on R/A; kd3 02:07 BP 133 / 83; Pulse 102; Resp 18; Temp 102.7(O); Pulse Ox 96% on R/A; kd3 03:06 BP 122 / 66; Pulse 103; Resp 18; Pulse Ox 96% on R/A; kd3 05:09 BP 121 / 71; Pulse 65; Resp 17; Temp 98.2(O); Pulse Ox 99% on R/A; kd3 11/18 20:58 Body Mass Index 20.07 (67.13 kg, 182.88 cm) kd3 ED Course: 11/18 20:24 Patient arrived in ED. jj6 20:58 Sina Luke MD is Attending Physician. tw7 21:00 Triage completed. kd3 21:14 Erica Mcgovern, BRITT is Primary Nurse. me1 21:51 XRAY Chest (1 view) In Process Unspecified. EDMS 21:51 Patient has correct armband on for positive identification. Bed in low position. Call me1 light in reach. Side rails up X 1. Provided Education on: POC. Verbalized understanding.. Client placed on continuous cardiac and pulse oximetry monitoring. NIBP monitoring applied. Pulse ox on. NIBP on. 21:51 No provider procedures requiring assistance completed. me1 21:57 Inserted saline lock: 20 gauge in right forearm, using aseptic technique. Blood sa1 collected. Flushed with 10 mL NS. 22:11 EKG done, by ED staff, reviewed by Sina Luke MD. sa1 22:12 Basic Metabolic Panel Sent. sa1 22:12 CBC with Diff Sent. sa1 22:12 LFT's Sent. sa1 22:12 NT PRO-BNP Sent. sa1 22:13 Troponin HS Sent. sa1 11/19 00:14 CT Abd/Pelvis - IV Contrast Only In Process Unspecified. EDMS 02:30 Blood Culture Adult (2) Sent. kd3 02:30 Lactate w/ 2H reflex if indic. Sent. kd3 02:34 Som Jones MD is Hospitalizing Provider. tw7 05:07 Arm band placed on right wrist. kd3 05:07 Patient admitted, IV remains in place. kd3 Administered Medications: 11/18 23:37 Drug: Famotidine IVP 20 mg IVP once; dilute with 10 mL 0.9% NaCl; give over 2 minutes kd3 Route: IVP; Site: right forearm; 23:37 Drug: Pantoprazole IVP 40 mg IVP once Route: IVP; Site: right forearm; kd3 23:38 Drug: NS 0.9% IV 1000 ml IV at 1000 ml once; to be given as a bolus over 60 minutes kd3 Route: IV; Rate: 1000 ml; Site: left forearm; 23:38 Drug: Ondansetron IVP 4 mg IVP once; over 2 minutes Route: IVP; Site: right forearm; kd3 23:38 Drug: DuoNeb Nebulize (3:1) (2.5 mg - 0.5 mg) 3 ml Nebulizer once Route: Nebulizer; kd3 11/19 02:37 Drug: Rocephin IV 1 grams IV at calculated rate once; Given slow IV push per pharmacy tb4 instructions Route: IV; Rate: calculated rate; Site: right forearm; 03:42 Follow up: Response: No adverse reaction; IV Status: Completed infusion tb4 02:37 Drug: AZITHromycin IVPB 500 mg IVPB once over 1 hrs; (mix in 250 mL NS) Route: IVPB; tb4 Infused Over: 1 hrs; Site: right upper arm; 03:42 Follow up: Response: No adverse reaction; IV Status: Completed infusion tb4 02:39 Drug: Acetaminophen PO 1000 mg PO once Route: PO; tb4 03:43 Follow up: Response: No adverse reaction tb4 Medication: 11/18 21:51 VIS not applicable for this client. me1 Outcome: 11/19 02:35 Decision to Hospitalize by Provider. tw7 05:06 Admitted to Med/surg accompanied by winsome hutton 05:06 Condition: stable 05:06 Discharge instructions given to patient, Instructed on the need for admit, Demonstrated understanding of instructions, 05:10 Patient left the ED. kd3 Signatures: Dispatcher [employer] EDJazmin White jj6 Rylie De Leon RN RN kd3 Erica Mcgovern RN RN me1 Sultan Art sa1 Sina Luke MD MD tw7 Malu Booth, BRITT RN tb4 Corrections: (The following items were deleted from the chart) 11/18 21:02 20:58 Chief complaint: Patient states: I have had diarrhea and black stool. i have kd3 chrons kd3 21:47 20:58 Chief complaint: Patient states: I have had diarrhea and black stool. i have me1 chrons and my stomach hurts. kd3
--- NOTE | 2024-11-19 02:54 | P.HP ---
Certification for Inpatient Patient admitted to: Inpatient With expected LOS: >2 Midnights Practitioner: I am a practitioner with admitting privileges, knowledge of patient current condition, hospital course, and medical plan of care. Services: Services provided to patient in accordance with Admission requirements found in Title 42 Section 412.3 of the Code of Federal Regulations Patient History Date of Service: 11/19/24 Reason for admission: generalized weakness History of Present Illness: 69 yrs old Male with past medical history of chron's disease, hypertension, hyperlipidemia, CHF, CKD stage II, enlarged heart, GERD, history of rectal fistula repair who was brought to ER with abdominal pain, epigastric pain and diarrhea. He started having abdominal pain, nausea, diarrhea. Patient reports abdominal pain located epigastric region. Reports has been having diarrhea for the last few days. He reports his stools are black and watery. He denies any chest pain or shortness of breath. His abdominal pain he says is mild to moderate. Patient also reports muscle cramping in his arms and legs he is walking all day today. He denies hematemesis. Denies being on blood thinners. Patient also has a cough and congestion.. Patient was assessed in the ER and was admitted for further management. He was also found to have left lower lobe pneumonia Allergies azathioprine [From Imuran] Allergy (Verified 04/07/18 08:45) Rash azathioprine sodium [From Imuran] Allergy (Verified 04/07/18 08:45) Rash ketorolac Allergy (Verified 04/07/18 08:45) Vomiting ketorolac tromethamine [From Toradol] Adverse Reaction (Severe, Verified 04/07/18 08:45) Itching Home medications list reviewed: Yes Home Medications: Dicyclomine [Bentyl*] 10 mg PO TID 04/07/18 Gabapentin 500 mg PO TID 04/07/18 Hydrocodone Bit/Acetaminophen [Hydrocodon-Acetaminophn 10-325] 1 tab PO Q6H PRN 04/07/18 LORazepam [Ativan*] 0.5 mg PO BID PRN 04/07/18 Albuterol Sulfate [Proair Hfa] 2 puff IH TID PRN #1 hfa.aer.ad 04/14/18 Famotidine [Pepcid*] 20 mg PO BID #60 tab 04/14/18 Ferrous Sulfate [Ferrous Sulfate*] 325 mg PO BID #60 tab 04/14/18 Mometasone/Formoterol [Dulera 200 Mcg/5 Mcg Inhaler] 2 puff IH BID #1 inhaler 04/14/18 Vancomycin Oral Soln [Vancocin HCl*] 2.5 ml PO Q6HR #1 bottle 04/14/18 levoFLOXacin [Levaquin*] 500 mg PO DAILY #7 tab 04/14/18 - Past Medical/Surgical History Diabetic: No Past Medical History: Reviewed- Non-Contributory -: Crohn's disease -: COPD -: Hypertension Past Surgical History: Reviewed- Non-Contributory - Social History Smoking Status: Former smoker Alcohol use: Yes CD- Drugs: No Caffeine use: Yes Review of Systems 10-point ROS is otherwise unremarkable Physical Examination - Physical Exam General: Alert, Oriented x3, Cachectic, Mild distress HEENT: Atraumatic, Normocephalic Neck: Supple, No Thyromegaly Respiratory: Clear to auscultation bilaterally, Normal air movement, Crackles/rales Cardiovascular: Regular rate/rhythm, Normal S1 S2 Capillary refill: <2 Seconds Gastrointestinal: Soft and benign, W/out hepatosplenomegaly, Tenderness Musculoskeletal: No clubbing Integumentary: No rashes Neurological: Other (Alert awake nonfocal) - Studies Laboratory Data (last 24 hrs) 11/18/24 11/18/24 21:54 21:54 WBC 8.50 Hgb 10.9 L Hct 32.4 L Plt Count 347 Sodium 132 L Potassium 4.1 BUN 21 H Creatinine 1.33 H Glucose 89 Total Bilirubin 0.2 AST 21 ALT 19 Alkaline Phosphatase 110 Assessment and Plan - Plan Left lower lobe pneumonia Started on IV antibiotic CT findings noted Monitor closely on telemetry History of chron's disease Continue home medications and titrate as needed Pain control Hypertension Antihypertensives titrated Continue home medications and titrate as needed Hyperlipidemia Continue statin CKD stage II Monitor renal parameters Electrolytes monitor and replace accordingly GI/DVT prophylaxis Advanced directive full code Discharge Plan: Home Plan to discharge in: 48 Hours - Advance Directives Does patient have a Living Will: No Does patient have a Durable POA for Healthcare: No - Code Status/Comfort Care Code Status: Full Code Time Spent Managing Pts Care (In Minutes): 48
[2024-11-19] MEDS ORDERED: ACETAMINOPHEN 325 MG TABLET PO PRN (02:56)
[2024-11-19] MEDS ORDERED: ONDANSETRON 4 MG/2 ML VIAL IV PRN (02:56)
[2024-11-19] MEDS ORDERED: HYDROCODONE/APAP 5/325 MG TAB PO PRN (04:24)
[2024-11-19] MEDS ORDERED: MORPHINE 2 MG/ML SYR IV PRN (04:24)
[2024-11-19 05:38] VITALS: BMI 16.7
[2024-11-19] MEDS: ENOXAPARIN 40 MG/0.4 ML SQ SCH (08:45)
[2024-11-19] MEDS: NA CHLORIDE 0.9% 1,000 ML IV SCH (08:45)
--- NOTE | 2024-11-19 09:11 | P.PN ---
Date of Service: 11/19/24 Patient with severe malnutrition admitted with nausea, diarrhea and abdominal pain. Work up shows MICHAEL. Currently on volume repletion. He has a hx of crohn's disease. GI and RD consulted.
--- NOTE | 2024-11-19 12:17 | P.DS ---
Admission Date: 11/19/24 Discharge Date: 11/19/24 Disposition: AMA-LEFT AGAINST MEDICAL ADVIC Reason for Admission: generalized weakness Hospital Course: Patient is a 69-year-old male with severe malnutrition who was admitted with nausea, diarrhea and abdominal pain. Work up shows MICHAEL. He was placed on on volume repletion. With the plan to see gastroenterology due to his history of Crohn's disease, nutrition for his severe malnutrition. Unfortunately, patient decided to leave AMA. Vital Signs/Physical Exam: Temp Pulse Resp BP Pulse Ox 97.9 F 82 16 116/62 96 11/19/24 08:00 11/19/24 08:00 11/19/24 08:00 11/19/24 08:00 11/19/24 08:00 Laboratory Data at Discharge: WBC 8.50 thou/uL (4.3-10.9) 11/18/24 21:54 Hgb 10.9 g/dL (13.6-17.9) L 11/18/24 21:54 Hct 32.4 % (39.6-49.0) L 11/18/24 21:54 Plt Count 347 thou/uL (152-406) 11/18/24 21:54 Sodium 132 mEq/L (136-145) L 11/18/24 21:54 Potassium 4.1 mEq/L (3.5-5.1) 11/18/24 21:54 BUN 21 mg/dL (7-18) H 11/18/24 21:54 Creatinine 1.33 mg/dL (0.70-1.30) H 11/18/24 21:54 Glucose 89 mg/dL (74-106) 11/18/24 21:54 Total Bilirubin 0.2 mg/dL (0.2-1.0) 11/18/24 21:54 AST 21 U/L (15-37) 11/18/24 21:54 ALT 19 U/L (16-61) 11/18/24 21:54 Alkaline Phosphatase 110 U/L (45-117) 11/18/24 21:54 Home Medications: Dicyclomine [Bentyl*] 10 mg PO TID 04/07/18 Gabapentin 500 mg PO TID 04/07/18 Hydrocodone Bit/Acetaminophen [Hydrocodon-Acetaminophn 10-325] 1 tab PO Q6H PRN 04/07/18 LORazepam [Ativan*] 0.5 mg PO BID PRN 04/07/18 Albuterol Sulfate [Proair Hfa] 2 puff IH TID PRN #1 hfa.aer.ad 04/14/18 Famotidine [Pepcid*] 20 mg PO BID #60 tab 04/14/18 Ferrous Sulfate [Ferrous Sulfate*] 325 mg PO BID #60 tab 04/14/18 Mometasone/Formoterol [Dulera 200 Mcg/5 Mcg Inhaler] 2 puff IH BID #1 inhaler 04/14/18 Vancomycin Oral Soln [Vancocin HCl*] 2.5 ml PO Q6HR #1 bottle 04/14/18 levoFLOXacin [Levaquin*] 500 mg PO DAILY #7 tab 04/14/18 Followup: NONE,NONE [Primary Care Provider] -
[2024-11-19 16:20] VITALS: BP 121/71; TEMP 98.2; O2SAT 99
[2024-11-19] MEDS ORDERED: CEFTRIAXONE 1,000 MG in NA CHLORIDE 0.9% 50 ML IVPB SCH (21:00)
[2024-11-19] MEDS ORDERED: AZITHROMYCIN IV 500 MG in NA CHLORIDE 0.9% 250 ML IVPB SCH (22:00)
== END 2024-11-19 10:56 | disposition left against medical advice (07) | DRG 682 ==
LOC: ER 20:20 → ERHOLD 11-19 02:56 → 2ND 11-19 03:58
PROVIDERS: ADMIT Family Medicine; ATTEND Internal Medicine
DX: N17.9 Acute kidney failure, unspecified (principal); E43 Unspecified severe protein-calorie malnutrition; J18.9 Pneumonia, unspecified organism; E87.1 Hypo-osmolality and hyponatremia; J44.0 Chronic obstructive pulmonary disease with (acute) lower respiratory infection; R64 Cachexia; Z68.1 Body mass index [BMI] 19.9 or less, adult; K50.90 Crohn's disease, unspecified, without complications; K21.9 Gastro-esophageal reflux disease without esophagitis; E78.00 Pure hypercholesterolemia, unspecified; E86.9 Volume depletion, unspecified; I12.9 Hypertensive chronic kidney disease with stage 1 through stage 4 chronic kidney disease, or unspecified chronic kidney disease; N18.2 Chronic kidney disease, stage 2 (mild); D63.1 Anemia in chronic kidney disease; F17.210 Nicotine dependence, cigarettes, uncomplicated; Z88.5 Allergy status to narcotic agent; Z11.52 Encounter for screening for COVID-19; Z53.29 Procedure and treatment not carried out because of patient's decision for other reasons
CPT/HCPCS: 36415; 71045; 74177; 80048; 80076; 83605; 83880; 84145; 84484; 85025; 87040; 87428; 97165; J0456; J0696; J1650; J2405; J2470; J7030; J7050; J7613; J7644; Q9967